=== PATIENT | male | born 1955 | race Caucasian/White ===

== ENCOUNTER 2018-08-07 14:39 | Inpatient (IN) ==
--- NOTE | 2018-08-07 14:42 | Emergency Department Note ---
Disposition Clinical Impression: Common bile duct (CBD) obstruction Abdominal pain Qualifiers: Abdominal location: generalized Qualified Code(s): R10.84 - Generalized abdominal pain Disposition: Admitted As Inpatient Condition: Fair Time of Disposition: 15:03 General Adult HPI - General Stated complaint: GI obstruction Time Seen by Provider: 08/07/18 14:42 Source: patient Mode of arrival: EMS Limitations: no limitations Nursing Notes Reviewed: Yes Vital Signs Reviewed: Yes - History of Present Illness HPI Narrative: Patient is a 63-year-old male presenting from the [facility] for transfer for right upper quadrant abdominal pain. Patient with known history of cirrhosis and alcoholism. Patient states that this is been ongoing for the past month without change. He has associated nausea without vomiting. He has noticed a change in stool which appears to be darker than usual and darker urination. While at the [facility], patient had a right upper quadrant ultrasound which was performed which shows cirrhosis with diffuse increased hepatic echogenicity with nodular hepatic contour, gallbladder sludge, with moderate air. Hepatic ascites with common bile duct dilatation to 9 mm. Patient also had blood work performed which shows AST at 232, LT at 91, top total bilirubin is 7.7, alkaline phosphatase at 204, sodium 1:30, potassium at 2.8, chloride 95, glucose 100, hemoglobin is 12.4. Platelets of 250. - Related Data Allergies Allergy/AdvReac Type Severity Reaction Status Date / Time No Known Allergies Allergy Verified 08/07/18 14:59 All systems ED: reviewed and negative except as stated. Review of Systems: As Per HPI Constitutional: Denies: fever, chills ENT ED: Denies: congestion Cardiovascular: Denies: chest pain, palpitations, dyspnea on exertion Respiratory: Denies: cough, dyspnea Gastrointestinal: Reports: diarrhea. Denies: abdominal pain, nausea, hematemesis, melena, hematochezia Genitourinary: Denies: dysuria Musculoskeletal: Denies: back pain Integumentary: Denies: rash Neurological: Denies: headache, weakness, confusion Endocrine: Denies: fatigue Hematological/Lymphatic: Denies: easy bleeding, easy bruising Physical Exam - General Limitations: no limitations General appearance: alert, in no apparent distress - Head Head exam: atraumatic, normocephalic, normal inspection - Eye Eye exam: Present: PERRL, EOMI, scleral icterus - ENT ENT exam: normal exam, normal oropharynx, mucous membranes moist - Neck Neck exam: Present: normal inspection, full ROM, trachea midline - Chest Chest inspection: Present: normal inspection, symmetric chest wall rise - Respiratory Respiratory exam: Present: normal lung sounds bilaterally - Cardiovascular Cardiovascular exam: Present: regular rate, normal rhythm, normal heart sounds - Abdominal Exam Abdominal exam: Present: soft, tenderness (Patient with tenderness in the right upper quadrant, is minimal to deep palpation). Absent: distention, guarding, rebound, rigidity - Extremities Exam Extremities exam: Present: normal inspection, full ROM. Absent: tenderness, pedal edema - Back Exam Back exam: Present: normal inspection, full ROM. Absent: tenderness - Neurological Exam Neurological exam: Present: alert, oriented X3 - Psychiatric Psychiatric exam: Present: normal affect, normal mood - Skin Skin exam: Present: warm, dry, intact, other (Patient was scleral icterus as well as jaundice to the chest) Medical Decision Making - [facility] Narrative Medical decision making narrative: Patient is a 63-year-old male whose [facility] with [facility] with known history of cirrhosis of the liver and alcoholism. [facility] which showed some right upper quadrant ultrasound with biliary sludge, common bile duct dilatation to 9 mm with elevated AST, a LT, T bili at 7.7. I did speak with GI nurse practitioner, who agrees to see the patient tomorrow for ERCP. Patient vital signs otherwise within normal limits and stable. Their recommendation is to make patient nothing by mouth after midnight. Patient agrees at this point in time to admission for further ERCP definitive management. Patient agrees with disposition. - Medical Records Medical records reviewed: Yes I reviewed the patient's medical records. - Lab Data Lab results reviewed: Yes I reviewed the patient's lab results. - Radiology Data Radiology results reviewed: Yes I reviewed the patient's radiology results.
--- NOTE | 2018-08-07 14:48 | Emergency Department Note ---
Disposition Clinical Impression: Common bile duct (CBD) obstruction Abdominal pain Qualifiers: Abdominal location: generalized Qualified Code(s): R10.84 - Generalized a bdominal pain Disposition: Admitted As Inpatient Condition: Fair Time of Disposition: 18:14 General Adult HPI - General Stated complaint: GI obstruction Time Seen by Provider: 08/07/18 14:42 - Related Data Home Medications Medication Instructions Recorded Confirmed Amlodipine Besylate/Benazepril 1 each PO DAILY 08/07/18 08/07/18 [Lotrel 10-20 mg Capsule] Fluticasone Propionate Nasal 50 mcg NS DAILY PRN 08/07/18 08/07/18 [Flonase] Folic Acid 1 mg PO DAILY 08/07/18 08/07/18 Thiamine (B-1) [Vitamin B-1] 100 mg PO DAILY 08/07/18 08/07/18 Allergies Allergy/AdvReac Type Severity Reaction Status Date / Time No Known Allergies Allergy Verified 08/07/18 14:59 Course Vital Signs Temperature 98.5 F 08/07/18 14:47 Pulse Rate 100 08/07/18 14:47 Respiratory Rate 16 08/07/18 14:47 Blood Pressure 113/72 08/07/18 14:47 O2 Sat by Pulse Oximetry 98 08/07/18 14:47 Temperature 98.4 F 08/07/18 17:29 Pulse Rate 107 08/07/18 17:29 Respiratory Rate 16 08/07/18 17:29 Blood Pressure 111/67 08/07/18 17:29 O2 Sat by Pulse Oximetry 97 08/07/18 17:29 Oxygen Delivery Oxygen Delivery Room Air Medical Decision Making - Lab Data Result diagrams: 08/07/18 16:25 08/07/18 16:25 Lab Results 08/07/18 08/07/18 08/07/18 Range/Units 16:25 16:25 16:25 WBC 11.5 H (4.3-11.1) K/mcL RBC 3.36 L (4.19-5.50) M/mcL Hgb 12.0 L (12.9-16.9) g/dL Hct 32.9 L (37.5-50.1) % MCV 97.9 (83.0-100.0) fL MCH 35.7 H (28.0-33.3) pg MCHC 36.5 H (31.6-35.5) g/dL RDW 16.4 H (11.5-14.5) % Plt Count 245 (140-400) K/mcL MPV 10.0 (9.4-12.4) fL Immature Gran % 0.6 (0-4) % Seg Neutrophils % 70.7 % Lymphocytes % 11.7 % Monocytes % 15.6 % Eosinophils % 0.6 % Basophils % 0.8 % Neutrophils # 8.1 (1.6-8.9) K/mcL Lymphocytes # 1.3 (0.6-4.6) K/mcL Monocytes # 1.8 H (0.0-1.3) K/mcL Eosinophils # 0.1 (0.0-0.6) K/mcL Basophils # 0.1 (0.0-0.2) K/mcL PT (9.4-12.1) Seconds INR Sodium 130 L (136-145) mEq/L Potassium 2.9 L (3.5-5.1) mEq/L Chloride 95 L (98-107) mEq/L Carbon Dioxide 27 (23-29) mEq/L BUN 16 (8-23) mg/dL Creatinine 0.60 L (0.70-1.30) mg/dL Est GFR ( Amer) > 60 (> 60) Est GFR (Non-Af Amer) > 60 (> 60) BUN/Creatinine Ratio 27 H (6-26) Glucose 95 (70-105) mg/dL Calculated Osmolality 271 L (280-300) Calcium 7.7 L (8.6-10.3) mg/dL Phosphorus 2.0 L (2.7-4.5) mg/dL Magnesium 1.5 L (1.6-2.6) mg/dL Total Bilirubin 8.4 H (0.3-1.0) mg/dL AST 182 H (13-39) Units/L ALT 74 H (7-52) Units/L Alkaline Phosphatase 152 H (34-104) Units/L Serum Total Protein 6.0 L (6.4-8.9) g/dL Albumin 2.7 L (3.5-5.7) g/dL Globulin 3.3 (2.4-3.5) g/dL Albumin/Globulin Ratio 0.8 L (1.1-2.2) Ethyl Alcohol < 10 (Less than 10) mg/dL 08/07/18 Range/Units 16:25 WBC (4.3-11.1) K/mcL RBC (4.19-5.50) M/mcL Hgb (12.9-16.9) g/dL Hct (37.5-50.1) % MCV (83.0-100.0) fL MCH (28.0-33.3) pg MCHC (31.6-35.5) g/dL RDW (11.5-14.5) % Plt Count (140-400) K/mcL MPV (9.4-12.4) fL Immature Gran % (0-4) % Seg Neutrophils % % Lymphocytes % % Monocytes % % Eosinophils % % Basophils % % Neutrophils # (1.6-8.9) K/mcL Lymphocytes # (0.6-4.6) K/mcL Monocytes # (0.0-1.3) K/mcL Eosinophils # (0.0-0.6) K/mcL Basophils # (0.0-0.2) K/mcL PT 24.8 H (9.4-12.1) Seconds INR 2.2 Sodium (136-145) mEq/L Potassium (3.5-5.1) mEq/L Chloride (98-107) mEq/L Carbon Dioxide (23-29) mEq/L BUN (8-23) mg/dL Creatinine (0.70-1.30) mg/dL Est GFR ( Amer) (> 60) Est GFR (Non-Af Amer) (> 60) BUN/Creatinine Ratio (6-26) Glucose (70-105) mg/dL Calculated Osmolality (280-300) Calcium (8.6-10.3) mg/dL Phosphorus (2.7-4.5) mg/dL Magnesium (1.6-2.6) mg/dL Total Bilirubin (0.3-1.0) mg/dL AST (13-39) Units/L ALT (7-52) Units/L Alkaline Phosphatase (34-104) Units/L Serum Total Protein (6.4-8.9) g/dL Albumin (3.5-5.7) g/dL Globulin (2.4-3.5) g/dL Albumin/Globulin Ratio (1.1-2.2) Ethyl Alcohol (Less than 10) mg/dL Attestation Statement - Attestation Attestation: I reviewed the residents documentation and agree with the residents assessment and plan of care. I have personally had face to face time with the patient. (Brief History, Brief Exam, and MDM) I personally supervised and was present for the ott/critical portions of the following procedures completed by the resident: (add procedures performed here). [id number] time provided Patient arrives from the [facility] with right upper quadrant abdominal pain. He states he initially presented due to difficulty ambulating. He appears jaundiced on exam. I did review the labs drawn at the [facility]. I reviewed the transcribed report of the CT abdomen and pelvis with concern for choledocholithiasis.
[2018-08-07] MEDS ORDERED: Ondansetron 4 MG/2 ML VIAL IVP PRN (15:55)
[2018-08-07] MEDS ORDERED: Naloxone 0.4 MG/ML INJ IVP PRN (15:55)
[2018-08-07] MEDS ORDERED: OXYCODONE Oral CONC 10 MG/0.5 ML ORAL.SYG SL PRN (15:55)
[2018-08-07] MEDS ORDERED: *HR* LORazepam 2 MG/ML VIAL IVP PRN ×3 (16:03)
[2018-08-07] MEDS ORDERED: Piperacillin/Tazobactam 3.375 GM in 0.9 % Sodium Chloride Mini Bag 100 ML IVPB SCH ×2 (16:14→22:00)
--- NOTE | 2018-08-07 16:27 | Internal Med History&Physical ---
Date of Encounter: 08/07/18 Time of Encounter: 15:50 Internal Medicine - H&P: HPI Chief complaint: transfer from [facility] for acute cholecystitis Admitted From: Home Plans for Post Hospital Care: Home History of present illness: Mr. Whitley is a 63 year old male with PMH of alcohol abuse, cirrhosis of the liver, hypertension, tobacco abuse who is transferred from [facility] for evaluation of acute cholecystitis. Patient is seen and examined with family present at bedside. Patient states he checked himself into [facility] last week for alcohol detox, states he has been having dulling right upper quadrant abdominal pain for the last month, but he has continued to drink. He reports of being at the [facility] for the last few days, and his last alcohol drink was yesterday. Prior to his admission to the [facility] he has been drinking 6-7 drinks of 6oz vodka daily for the last twenty years. He also reports of smoking a ppd. [facility] workup reported CT abd/pelvis: 1. Diffuse Increased hepatic echogenicity with a mildly nodular hepatic contour. 2. Large amount of dependent medium level echogenicity in the gallbladder likely representing tumefactive sludge. Gallbladder neoplasm cannot be excluded based on this appearance. 3. There is dilation of the common bile duct up to 9mm. This could be due to a distal stone, stricture or tumor. ERCP or MRCP is recommended 4. Moderate perihepatic ascites Patient is currently resting in bed, reports of mild RUQ abd discomfort but denies any nausea, vomiting, fever, or chills. Ten point ROS is negative except as listed above. Past Med Surg Social Fam HX - Past Medical History Medical history: hypertension, liver disease Psychiatric history: no psych history - Social History Smoking Status: Current every day smoker Smokeless Tobacco Status: No Alcohol use: occasionally Drug use: none Internal Medicine - H&P: Meds Amlodipine Besylate/Benazepril [Lotrel 10-20 mg Capsule] 1 each PO DAILY 08/07/18 [History] Fluticasone Propionate Nasal [Flonase] 50 mcg NS DAILY PRN 08/07/18 [History] Folic Acid 1 mg PO DAILY 08/07/18 [History] Thiamine (B-1) [Vitamin B-1] 100 mg PO DAILY 08/07/18 [History] Allergy/AdvReac Type Severity Reaction Status Date / Time No Known Allergies Allergy Verified 08/07/18 14:59 All Systems PM: A 10-system review of systems was performed and is negative for pertinent findings except as documented above in the HPI. Review of systems: Ten point ROS is negative except as listed in HPI - Constitutional Vitals: Temp Pulse Resp BP Pulse Ox 98.5 F 100 16 113/72 98 08/07/18 14:47 08/07/18 14:47 08/07/18 14:47 08/07/18 14:47 08/07/18 14:47 Exam: General: No acute distress, AAO x 3, jaundiced HEENT: EOMI, PERRLA, NC/AT, + scleral icterus Respiratory: Clear to auscultate bilaterally, no wheezing, no rales Cardiovascular: Regular, Rate, Rhythm, No murmurs GI: Soft, Non tender, distended abd, normal bowel sounds, no guarding, no rebound tenderness Ext: No edema, no tenderness, positive pulses Neuro: AAO x 3, no focal deficits, CN II-XII grossly intact Rest of the clinical exam is noncontributory - Summary of Assessment and Plan Summary of Assessment and Plan: Mr. Whitley is a 63 year old male with PMH of alcohol abuse, cirrhosis of the liver, hypertension, tobacco abuse who is transferred from [facility] for evaluation of acute cholecystitis. Assessment/Plan: 1. Acute choledocholithiasis/acute cholecystitis STAT MRCP ordered GI evaluation requested I spoke with Dr. Jo, will keep pt NPO except ice chips at this time tentatively scheduled for ERCP in am IV abx, IV fluids anti-emetic support as needed pain control as needed f/u INR 2. Alcohol abuse will closely monitor for alcohol withdrawals CIWA monitoring Lorazepam as needed per CIWA scores Folate, Thiamine supplementation concern for DTs, will closely monitor social welfare clerk evaluation 3. Hx of HTN BP within acceptable range at this time will restart home medications after verification closely monitor BP 4. Tobacco abuse smoking cessation counseling provided patient does not want to quit refused nicotine supplementation therapy at this time 5. Elevated transaminases with hx of cirrhosis of the liver GI evaluation requested will obtain hepatitis profile continue to closely monitor f/u coag studies DVT ppx: will initiate heparin SQ if coag studies are WNL code status: Full code LOS > 2 midnights Care plan discussed with patient/family/Consulting provider - Time Spent With Patient Total time spent is greater than 50% in coordination of care (as documented) at patient's floor/unit and/or counseling patient:
[2018-08-07] MEDS ORDERED: Fluticasone Propionate Nasal 50 MCG/SPRAY BOTTLE NS PRN (16:29)
[2018-08-07 16:36] LABS: Basophils # 0.1 K/mcL (0.0-0.2); Basophils % 0.8 %; Eosinophils # 0.1 K/mcL (0.0-0.6); Eosinophils % 0.6 %; Hematocrit 32.9 % (37.5-50.1); Immature Granulocytes % 0.6 % (0-4); Lymphocytes # 1.3 K/mcL (0.6-4.6); Lymphocytes % 11.7 %; Mean Corpuscular HGB Conc 36.5 g/dL (31.6-35.5); Mean Corpuscular Hemoglobin 35.7 pg (28.0-33.3); Mean Corpuscular Volume 97.9 fL (83.0-100.0); Monocytes # 1.8 K/mcL (0.0-1.3); Monocytes % 15.6 %; Neutrophils # 8.1 K/mcL (1.6-8.9); Platelet Count 245 K/mcL (140-400); Red Blood Count 3.36 M/mcL (4.19-5.50); Red Cell Distribution Width 16.4 % (11.5-14.5); Segmented Neutrophils % 70.7 %; White Blood Count 11.5 K/mcL (4.3-11.1)
[2018-08-07 16:44] LABS: INR 2.2; Prothrombin Time 24.8 Seconds (9.4-12.1)
[2018-08-07 17:07] LABS: Alanine Aminotransferase 74 Units/L (7-52); Albumin 2.7 g/dL (3.5-5.7); Albumin/Globulin Ratio 0.8 (1.1-2.2); Alkaline Phosphatase 152 Units/L (34-104); Aspartate Amino Transferase 182 Units/L (13-39); BUN/Creatinine Ratio 27 (6-26); Bilirubin,Total 8.4 mg/dL (0.3-1.0); Blood Urea Nitrogen 16 mg/dL (8-23); Calcium 7.7 mg/dL (8.6-10.3); Carbon Dioxide 27 mEq/L (23-29); Chloride 95 mEq/L (98-107); Globulin 3.3 g/dL (2.4-3.5); Glucose 95 mg/dL (70-105); Magnesium 1.5 mg/dL (1.6-2.6); Osmolality,Calculated 271 (280-300); Potassium 2.9 mEq/L (3.5-5.1); Sodium 130 mEq/L (136-145); eGFR For African Americans > 60 (> 60); eGFR For Non-African Americans > 60 (> 60)
[2018-08-07] MEDS: 0.9 % Sodium Chloride 1,000 ML IVC SCH (18:35)
[2018-08-07] MEDS: Potassium Chloride 20 MEQ, Lidocaine 1% 2 ML in D5% in Water 250 ML IVPB SCH ×2 (18:36→22:46)
[2018-08-08] MEDS: 0.9 % Sodium Chloride 1,000 ML IVC SCH ×4 (02:48→19:48)
[2018-08-08] MEDS: Thiamine (B-1) 100 MG, Folic Acid 1 MG, MVI, adult with vitamin K 10 ML in 0.9 % Sodi... IVPB SCH ×2 (02:49→19:34)
[2018-08-08 02:50] LABS: Basophils # 0.1 K/mcL (0.0-0.2); Basophils % 0.9 %; Eosinophils # 0.1 K/mcL (0.0-0.6); Eosinophils % 0.5 %; Hemoglobin 10.7 g/dL (12.9-16.9); Immature Granulocytes % 0.5 % (0-4); Lymphocytes # 1.3 K/mcL (0.6-4.6); Mean Corpuscular HGB Conc 35.7 g/dL (31.6-35.5); Mean Corpuscular Hemoglobin 35.7 pg (28.0-33.3); Mean Platelet Volume 10.3 fL (9.4-12.4); Monocytes # 1.8 K/mcL (0.0-1.3); Monocytes % 17.5 %; Neutrophils # 7.2 K/mcL (1.6-8.9); Platelet Count 213 K/mcL (140-400); Red Cell Distribution Width 16.5 % (11.5-14.5); Segmented Neutrophils % 68.6 %; White Blood Count 10.5 K/mcL (4.3-11.1)
[2018-08-08 03:23] LABS: Alanine Aminotransferase 66 Units/L (7-52); Albumin 2.5 g/dL (3.5-5.7); Albumin/Globulin Ratio 0.8 (1.1-2.2); Alkaline Phosphatase 154 Units/L (34-104); Aspartate Amino Transferase 156 Units/L (13-39); BUN/Creatinine Ratio 25 (6-26); Bilirubin,Total 7.4 mg/dL (0.3-1.0); Blood Urea Nitrogen 14 mg/dL (8-23); Calcium 7.2 mg/dL (8.6-10.3); Carbon Dioxide 24 mEq/L (23-29); Chloride 97 mEq/L (98-107); Chol/HDL Ratio 28.3 (0-4.9); Cholesterol 85 mg/dL (< 200); Glucose 98 mg/dL (70-105); HDL Cholesterol 3 mg/dL (40-59); LDL Cholesterol,Calculated 61 mg/dL (0-99); Magnesium 1.7 mg/dL (1.6-2.6); Osmolality,Calculated 270 (280-300); Phosphorous 1.5 mg/dL (2.7-4.5); Potassium 3.1 mEq/L (3.5-5.1); Sodium 130 mEq/L (136-145); Total Protein 5.5 g/dL (6.4-8.9); Triglycerides 104 mg/dL (< 150); eGFR For African Americans > 60 (> 60); eGFR For Non-African Americans > 60 (> 60)
[2018-08-08] MEDS: Lisinopril 20 MG TABLET PO SCH (08:01)
[2018-08-08] MEDS: Piperacillin/Tazobactam 3.375 GM in 0.9 % Sodium Chloride Mini Bag 100 ML IVPB SCH ×2 (08:01→19:29)
[2018-08-08] MEDS: amLODIPine 5 MG TABLET PO SCH (08:01)
[2018-08-08] MEDS ORDERED: Potassium Phosphate 44 MEQ in 0.9 % Sodium Chloride 250 ML IVPB ONE (08:17)
[2018-08-08] MEDS ORDERED: NON-FORMULARY MEDICATION 1 EACH EACH (Amlodipine Besylate/Benazepril [Lotrel 10-20 Mg Caps PO SCH (09:00)
--- NOTE | 2018-08-08 12:26 | Gastroenterology Consult Note ---
<ForbesJovany Mcgrath - Last Filed: 08/08/18 12:24> Date of Encounter: 08/08/18 Time of Encounter: 11:15 - Assessment and plan (1) Cirrhosis Current Visit: Yes Status: Acute Assessment and plan: MELD-Na 27, Child-Saucedo class C, DF 66.8. Will discuss need for steroid with Dr. Jo. Recommend 2-4 bowel movements daily, use Lactulose PRN. Check liver workup (AFP, alpha-1 antitrypsin, FARHANA, ANCA, ceruloplasmin, F actin, ferritin, hepatitis profile, AMA, PT/INR). Lifestyle Changes: 1. Total abstinence from alcohol including social drinking. 2. No smoking. 3. Gradual loss of weight. 4. Drink at least 3 cups of coffee due to its antioxidant effects in the liver, it reduces risk of HCC and advance fibrosis. 5. If needed, use less than 2 g/day of Tylenol (in divided doses). 6. Vaccination for Hep A, B, Pneumococcus if not already received and yearly influenza vaccination by PCP. 7. Avoid NSAIDS as can cause kidney damage. 8. Avoid benzodiazepines and other sedatives such as anti-histamines, narcotics etc. as can cause encephalopathy or confusion. 9. Take a late carbohydrate meal supplement as it reduces glucose production from protein breakdown and thus improves nutrition. 10. In cirrhosis, statins are safe to use and also improve portal hypertension and decrease risk of HCC. 11. Screening: Hepatocellular cancer screening: US of liver and AFP every 6 months Qualifiers: Hepatic cirrhosis type: alcoholic cirrhosis Ascites presence: unspecified Qualified Code(s): K70.30 - Alcoholic cirrhosis of liver without ascites (2) Common bile duct (CBD) obstruction Current Visit: Yes Status: Acute Assessment and plan: MRCP shows: 1. The gallbladder appears hydropic without definite gallbladder wall thickening. Probable gallbladder sludge or sand demonstrated. Evaluation for tumor is limited without administration of IV contrast, but no discrete gallbladder mass lesion is evident. 2. Hepatic steatosis and morphologic features of hepatic cirrhosis. 3. Suboptimally evaluated because of the presence of abdominal ascites, the CBD and PD appear grossly unremarkable. 4. There appears to be omental caking in the left upper quadrant. Correlation with IV contrast-enhanced CT abdomen and pelvis recommended as this can be seen with metastatic disease, but can also be reactive in hepatic cirrhosis. No indication for ERCP at this time. Consider consulting Surgery for possible cholecystectomy. Continue to monitor hepatic panel daily. (3) Abdominal pain Current Visit: Yes Status: Acute Assessment and plan: RUQ pain. Recommend consulting Surgery for possible cholecystectomy. Qualifiers: Abdominal location: right upper quadrant Qualified Code(s): R10.11 - Right upper quadrant pain - Time Spent With Patient Total time spent is greater than 50% in coordination of care (as documented) at patient's floor/unit and/or counseling patient: GI History of Present Illness - Data of Consult Patient: new to practice Consult date: 08/08/18 Requesting Physician: Eva Webber MD - Consult Narrative Reason for consult: CBD obstruction History of present illness: Mr. Whitley is a 63 year old male with PMHx of HTN, alcohol abuse (6 drinks/day for 30 years), cirrhosis, HTN, who was transferred from [place] for evaluation of acute cholecystitis. Patient states he checked himself into [facility] last week for alcohol detox, states he has been having dulling right upper quadrant abdominal pain for the last month, but he has continued to drink. CT A/P at [place] showed: 1. Diffuse Increased hepatic echogenicity with a mildly nodular hepatic contour. 2. Large amount of dependent medium level echogenicity in the gallbladder likely representing tumefactive sludge. Gallbladder neoplasm cannot be excluded based on this appearance. 3. There is dilation of the common bile duct up to 9mm. This could be due to a distal stone, stricture or tumor. ERCP or MRCP is recommended 4. Moderate perihepatic ascites. On admission here TB 8.4, AST 182, ALT 74, alk phos 152. We were consulted to evaluate for possible CBD obstruction. Procedures: None NSAIDs: None Anticoagulation: None Past Med Surg Social Fam HX - Past Medical History Medical history: hypertension, liver disease Psychiatric history: no psych history - Social History Smoking Status: Current every day smoker Smokeless Tobacco Status: No Alcohol use: occasionally Drug use: none - Gastrointestinal Gastrointestinal: Present: as per HPI - Constitutional Constitutional: as per HPI - EENT Eyes: as per HPI Ears: Present: as per HPI Nose, mouth and throat: Present: as per HPI - Cardiovascular Cardiovascular ROS: Present: as per HPI - Respiratory Respiratory IM: Present: as per HPI - Genitourinary Genitourinary: Absent: change in color, Urinary frequency - Neurological ROS Neurological GI: Present: as per HPI - Hematologic/Lymphatic Hematologic/Lymphatic pediatric: Present: as per HPI - Musculoskeletal Musculoskeletal ROS GI: Present: as per HPI - Integumentary Integumentary GI: Present: as per HPI - Psychiatric ROS Psychiatric GI: Present: as per HPI - Endocrine Endocrine IM: Present: as per HPI - Constitutional Vitals: Temp Pulse Resp BP Pulse Ox 98.8 F 94 16 116/75 94 08/08/18 11:32 08/08/18 11:32 08/08/18 11:32 08/08/18 11:32 08/08/18 11:32 General appearance: Present: cooperative, A&O X 3, no acute distress, answers questions appropriately - Head Head exam: Present: atraumatic, normocephalic - Eye Eye exam: Present: scleral icterus - ENT ENT exam: Present: mucous membranes moist - Neck Neck exam general surgery: Present: normal inspection, trachea midline - Respiratory Respiratory exam: Present: CTAB. Absent: rales, rhonchi - Cardiovascular Cardiovascular exam: Present: RRR, +S1, +S2 - GI/Abdominal GI/Abdominal exam: Present: soft, no peritoneal signs. Absent: distended, firm, guarding, tenderness - Rectal Rectal exam: Present: deferred - Extremities Exam Extremities exam: Present: warm - Neurological Exam Neurological exam: Present: no focal deficits - Psychiatric Psychiatric exam: Present: normal affect, normal mood - Skin Skin exam: Present: dry, intact, normal color, warm Results - Labs CBC & Chem 7: 08/08/18 02:31 08/08/18 02:31 Labs: Last Result 08/08/18 02:31 Calcium 7.2 L Triglycerides 104 Entire Visit 08/08/18 08/08/18 02:31 02:31 Hgb 10.7 L Hct 30.0 L Total Bilirubin 7.4 H AST 156 H ALT 66 H - ABG ABG results: PT/INR, D-dimer PT 24.8 Seconds (9.4-12.1) H 08/07/18 16:25 - Impressions Impressions Abdomen MRI 08/07/18 16:00 IMPRESSION: 1. The gallbladder appears hydropic without definite gallbladder wall thickening. Probable gallbladder sludge or sand demonstrated. Evaluation for tumor is limited without administration of IV contrast, but no discrete gallbladder mass lesion is evident. 2. Hepatic steatosis and morphologic features of hepatic cirrhosis. 3. Suboptimally evaluated because of the presence of abdominal ascites, the common bile duct and pancreatic duct appear grossly unremarkable. 4. There appears to be omental caking in the left upper quadrant. Correlation with IV contrast-enhanced CT abdomen and pelvis recommended as this can be seen with metastatic disease, but can also be reactive in hepatic cirrhosis. D/ / Hal Rice / Hal Rice Interpreting Provider: Hal Rice Consult Discharge Plan - Plan Instructions: Laparoscopic Cholecystectomy (DC) Additional Instructions: General Surgical Discharge Instructions 1. No pushing, pulling, or lifting greater than 15 lbs for 2-4 weeks (depending upon procedure). 2. You may shower beginning today, but no tub baths, soaking, or swimming for 2 weeks. 3. You may resume driving when you are off narcotics and are safe to react in a car. 4. Take ibuprofen every 8 hours for discomfort. If this does not relieve discomfort, you may take the as needed Percocet. Take narcotics as directed. Do not take more narcotics then directed and do not share your narcotics with any other person. Do not drink alcohol while on narcotics. 5. Take stool softeners (Colace) or a water based laxative (Miralax) while taking narcotics. You may hold for loose stools. 6. Report any fevers greater than 100.5F, increase abdominal discomfort, drainage that looks like pus, increased redness or pain at the surgical site, or any vomiting. 7. Report any pain in the calves, shortness of breath, or rapid heartbeat. 8. Follow-up in the office as directed. 9. If you were prescribed antibiotics, do not stop them without talking to your provider. [facility]errals: [facility]Primary Care Provider[facility] - Prescriptions: Docusate [Colace] 100 mg PO DAILY #30 capsule <Desmond Jo - Last Filed: 08/16/18 07:29> Date of Encounter: 08/08/18 - Time Spent With Patient Total time spent is greater than 50% in coordination of care (as documented) at patient's floor/unit and/or counseling patient: GI History of Present Illness - Data of Consult Requesting Physician: Denise Masters MD - Consult Narrative History of present illness: Mr. Whitley is a 63 year old male - Constitutional Vitals: Temp Pulse Resp BP Pulse Ox 97.7 F 105 18 107/70 97 08/16/18 06:55 08/16/18 06:55 08/16/18 06:55 08/16/18 06:55 08/16/18 05:32 Results - Labs CBC & Chem 7: 08/16/18 05:49 08/16/18 05:49 Labs: Last Result 08/16/18 08/16/18 05:49 05:49 ESR 14 H Calcium 7.9 L Entire Visit 08/16/18 08/16/18 05:49 05:49 Hgb 11.5 L Hct 32.1 L Total Bilirubin 5.5 H AST 108 H ALT 63 H Amylase 38 Lipase 30 - ABG ABG results: PT/INR, D-dimer PT 28.6 Seconds (9.4-12.1) H 08/15/18 02:15 - Impressions Impressions Abdomen Ultrasound 08/15/18 07:30 IMPRESSION: 1. Hepatic steatosis with small volume of ascites. 2. Status post cholecystectomy. D/ / Klaus Ho MD / Klaus Ho MD Interpreting Provider: Klaus Ho MD Chest X-Ray 08/15/18 10:24 IMPRESSION: Low lung volumes with patchy bibasilar opacities which could indicate volume loss or pneumonia. Upright PA and lateral chest radiographs would be helpful for further evaluation. D/ / Sj Shahid MD / Sj Shahid MD Interpreting Provider: Sj Shahid MD - Attending Attestation 63 year old male with acute hepatitis with cholestatic picture. Recommend MRCP. Decompensated cirrhosis Child Class C. No reason for ERCP at present. Consult surgery. Overall poor prognosis given his MELD and Child Saucedo. No evidence for bleeding. Watch for encephalopathy. I have personally performed a face to face evaluation on this patient. I have reviewed and agree with the care plan. History and Exam by me shows:
--- NOTE | 2018-08-08 13:52 | Internal Med Progress Note ---
Hospitalist Progress Note - Encounter Date of Encounter: 08/08/18 Time of Encounter: 13:47 - Subjective Interval History: Patient seen and examined earlier today with family present at bedside. Patient states abd pain improved from previous day. No nausea, vomiting, fever, or chills reported. As per GI, surgical consultation has been requested. Pt to remain NPO until surgical evaluation Ten point ROS is negative except as listed above No overnight events reported - Exam Vitals: Temp Pulse Resp BP Pulse Ox 98.8 F 94 16 116/75 94 08/08/18 11:32 08/08/18 11:32 08/08/18 11:32 08/08/18 11:32 08/08/18 11:32 Exam: General: No acute distress, AAO x 3, jaundiced HEENT: EOMI, PERRLA, NC/AT, + scleral icterus Respiratory: Clear to auscultate bilaterally, no wheezing, no rales Cardiovascular: Regular, Rate, Rhythm, No murmurs GI: Soft, Non tender, distended abd, normal bowel sounds, no guarding, no rebound tenderness Ext: No edema, no tenderness, positive pulses Neuro: AAO x 3, no focal deficits Rest of the clinical exam is noncontributory - Summary of Assessment and Plan Summary of Assessment and Plan: Mr. Whitley is a 63 year old male with PMH of alcohol abuse, cirrhosis of the liver, hypertension, tobacco abuse who is transferred from [facility] for evaluation of acute cholecystitis. Assessment/Plan: 1. Acute choledocholithiasis/acute cholecystitis MRCP reviewed GI evaluation appreciated no further intervention recommended by GI Surgery evaluation requested continue IV abx, IV fluids anti-emetic support as needed pain control as needed NPO until surgical evaluation 2. Alcohol abuse will closely monitor for alcohol withdrawals CIWA monitoring Lorazepam as needed per CIWA scores Folate, Thiamine supplementation concern for DTs, will closely monitor director social welfare evaluation 3. Hx of HTN BP within acceptable range at this time will restart home medications after verification closely monitor BP 4. Tobacco abuse smoking cessation counseling provided patient does not want to quit refused nicotine supplementation therapy at this time 5. Elevated transaminases with hx of cirrhosis of the liver GI evaluation appreciated awaiting hepatitis profile continue to closely monitor f/u coag studies INR > 2 yesterday, hold off any anticoagulation at this time 6. Electrolyte abnormality Hypokalemia, Hypophosphatemia K and Phos supplemented continue to monitor electrolytes and replace as needed DVT ppx: INR > 2 yesterday, hold off any anticoagulation at this time code status: Full code Care plan discussed with patient/family/Consulting provider/RN - Time Spent with Patient Total time spent is greater than 50% in coordination of care (as documented) at patient's floor/unit and/or counseling patient: Internal Medicine: Result - Labs CBC & Chem 7: 08/08/18 02:31 08/08/18 02:31 Labs: Short CBC 08/07/18 08/08/18 Range/Units 16:25 02:31 WBC 11.5 H 10.5 (4.3-11.1) K/mcL Hgb 12.0 L 10.7 L (12.9-16.9) g/dL Hct 32.9 L 30.0 L (37.5-50.1) % Plt Count 245 213 (140-400) K/mcL Neutrophils # 8.1 7.2 (1.6-8.9) K/mcL BMP 08/07/18 08/08/18 16:25 02:31 Sodium 130 L 130 L Potassium 2.9 L 3.1 L Chloride 95 L 97 L Carbon Dioxide 27 24 BUN 16 14 Creatinine 0.60 L 0.57 L Glucose 95 98 Calcium 7.7 L 7.2 L Liver Function 08/07/18 08/08/18 Range/Units 16:25 02:31 Total Bilirubin 8.4 H 7.4 H (0.3-1.0) mg/dL AST 182 H 156 H (13-39) Units/L ALT 74 H 66 H (7-52) Units/L Alkaline Phosphatase 152 H 154 H (34-104) Units/L Albumin 2.7 L 2.5 L (3.5-5.7) g/dL - ABG Interpretation ABG results: PT/INR, D-dimer PT 24.8 Seconds (9.4-12.1) H 08/07/18 16:25 - Impressions Impressions Abdomen MRI 08/07/18 16:00 IMPRESSION: 1. The gallbladder appears hydropic without definite gallbladder wall thickening. Probable gallbladder sludge or sand demonstrated. Evaluation for tumor is limited without administration of IV contrast, but no discrete gallbladder mass lesion is evident. 2. Hepatic steatosis and morphologic features of hepatic cirrhosis. 3. Suboptimally evaluated because of the presence of abdominal ascites, the common bile duct and pancreatic duct appear grossly unremarkable. 4. There appears to be omental caking in the left upper quadrant. Correlation with IV contrast-enhanced CT abdomen and pelvis recommended as this can be seen with metastatic disease, but can also be reactive in hepatic cirrhosis. D/ / Hal Rice / Hal Rice Interpreting Provider: Hal Rice Consult Discharge Plan - Plan [facility]: [facility] [Primary Care Provider[facility] -
[2018-08-08] MEDS ORDERED: Ondansetron 4 MG/2 ML VIAL ONE (14:09)
[2018-08-08] MEDS ORDERED: *HR* Propofol 200 MG/20 ML VIAL IVP ONE (14:09)
[2018-08-08] MEDS ORDERED: *HR* FentaNYL (PF) 100 MCG/2 ML VIAL ONE ×2 (14:09→18:10)
[2018-08-08] MEDS ORDERED: Dexamethasone 4 MG/ML VIAL ONE ×2 (14:09→16:54)
[2018-08-08] MEDS ORDERED: Neostigmine Methylsulfate 3 MG/3 ML SYRINGE ONE (14:09)
[2018-08-08] MEDS ORDERED: Lidocaine -MPF 2% 2 ML VIAL ONE (14:09)
[2018-08-08] MEDS ORDERED: *HR* Midazolam HCl 2 MG/2 ML VIAL ONE (14:09)
[2018-08-08] MEDS ORDERED: Lidocaine -MPF 4% 5 ML AMPUL ONE (14:09)
[2018-08-08 14:23] LABS: Hepatitis B Surface Antigen Nonreactive (Nonreactive)
--- NOTE | 2018-08-08 14:30 | Anesthesia Evaluation PreOp ---
Date of Encounter: 08/08/18 Time of Encounter: 16:00 - Past History Planned Operation: Lap Yessenia Cardiac History: HTN Pulmonary History: Smoker (1ppd x 40yrs) NEWSP[employer]ER PH[employer] EDITOR History: Denies Any Significant HX Other Medical History: Hepatic (Cirrhosis/EtOH abuse w/ ascites) Anesthesia History: No Prior Anesthetic Complications, Past Anesthesia Alcohol Use: occasionally, heavy (Daily drinker/Vodka. Recently checked into [facility] for EtOH Detox but transferred here for surgical Mgmt. Last drink Tuesday08/06/2018.) Drug use: none Medications and Allergies Amlodipine Besylate/Benazepril [Lotrel 10-20 mg Capsule] 1 each PO DAILY 08/07/18 [History] Fluticasone Propionate Nasal [Flonase] 50 mcg NS DAILY PRN 08/07/18 [History] Folic Acid 1 mg PO DAILY 08/07/18 [History] Thiamine (B-1) [Vitamin B-1] 100 mg PO DAILY 08/07/18 [History] Allergy/AdvReac Type Severity Reaction Status Date / Time No Known Allergies Allergy Verified 08/07/18 14:59 - Meds/Allergy Pre-op Review Medications Reviewed: Yes Allergies Reviewed: Yes Beta Blockers on Current Med List: No Anesthesia Results - Labs 08/08/18 02:31 08/08/18 02:31 Impressions Laboratory Tests 08/07/18 08/08/18 16:25 02:31 PT 24.8 H INR 2.2 Calcium 7.2 L Phosphorus 1.5 L Magnesium 1.7 Abdomen MRI 08/07/18 16:00 IMPRESSION: 1. The gallbladder appears hydropic without definite gallbladder wall thickening. Probable gallbladder sludge or sand demonstrated. Evaluation for tumor is limited without administration of IV contrast, but no discrete gallbladder mass lesion is evident. 2. Hepatic steatosis and morphologic features of hepatic cirrhosis. 3. Suboptimally evaluated because of the presence of abdominal ascites, the common bile duct and pancreatic duct appear grossly unremarkable. 4. There appears to be omental caking in the left upper quadrant. Correlation with IV contrast-enhanced CT abdomen and pelvis recommended as this can be seen with metastatic disease, but can also be reactive in hepatic cirrhosis. D/ / Hal Rice / Hal Rice Interpreting Provider: Hal Rice - Imaging EKG: image reviewed (EKG dated 08/08/2018] - 87bpm NSR) Additional studies: MR/MR abdomen wo con IMPRESSION: 1. The gallbladder appears hydropic without definite gallbladder wall thickening. Probable gallbladder sludge or sand demonstrated. Evaluation for tumor is limited without administration of IV contrast, but no discrete gallbladder mass lesion is evident. 2. Hepatic steatosis and morphologic features of hepatic cirrhosis. 3. Suboptimally evaluated because of the presence of abdominal ascites, the common bile duct and pancreatic duct appear grossly unremarkable. 4. There appears to be omental caking in the left upper quadrant. Correlation with IV contrast-enhanced CT abdomen and pelvis recommended as this can be seen with metastatic disease, but can also be reactive in hepatic cirrhosis. Anesthesia Exam Vital Signs Temp Pulse Resp BP Pulse Ox 08/08/18 11:32 98.8 F 94 16 116/75 94 08/08/18 08:00 93 08/08/18 07:48 98.4 F 83 16 100/67 93 08/08/18 03:25 98.8 F 88 16 101/68 97 08/07/18 23:19 98.8 F 89 17 100/65 96 08/07/18 19:23 98.4 F 103 16 98/62 96 08/07/18 17:29 98.4 F 107 16 111/67 97 08/07/18 16:23 97 16 119/64 97 08/07/18 16:03 16 119/64 08/07/18 14:58 98 16 109/70 98 08/07/18 14:47 98.5 F 100 16 113/72 98 Height: 5'8" Weight: 160# BMI = 24.5 - HEENT Pupil (Motor): Pupils equal (+ Scleral icterus), EOMI Mallampati: II Teeth: Edentulous Denture Type: Upper: Complete, Lower: Complete Oral Opening: Greater than 3 - NEWSP[employer]ER [employer]OTO EDITOR LOC: Oriented [employer]SP[employer]ER [employer] EDITOR Motor: Normal RUE, Normal LUE, Normal RLE, Normal LLE, Normal Face [employer]ER [employer]OR Sensory: Normal: RUE, LUE, RLE, LLE, Face - Cardiac Rhythm: Regular Murmur: None - Pulmonary Breath Sounds: bilateral Clear Respiratory Effort: Symmetrical Anesthesia Assess/Plan ASA Score: 4, E Level of consciousness: Cooperative, Oriented, Tranquil Anesthetic Plan: General Monitoring Plan: Standard Monitors Recovery Plan: PACU Anes Supervising Prov Stmt: Pt seen/evaluated, R&B Discussed questions answered and consent obtained. Juan Jose Zuñiga MD
[2018-08-08] MEDS ORDERED: Bupivacaine/EPI 1:200k 0.5%PF 30 ML VIAL ONE (14:34)
[2018-08-08] MEDS ORDERED: Isovue-300 50 ML VIAL ONE (14:35)
[2018-08-08 14:52] LABS: Hepatitis C Virus Antibody Nonreactive (Nonreactive)
[2018-08-08 14:53] LABS: Hepatitis B Core IgM Nonreactive (Nonreactive)
--- NOTE | 2018-08-08 14:53 | AcuteCare Surgery Consult Note ---
Date of Encounter: 08/08/18 Time of Encounter: 14:50 Assessment and Plan (1) Acute cholecystitis due to biliary calculus Current Visit: Yes Status: Acute Biliary sludge. Pt diagnosis of symptomatic cholelithiasis due to sludge is discussed. Laparoscopic Cholecystectomy with IOC is recommended. Procedure for the surgery, risks and benefits are discussed in detail. Possible known complications for Laparoscopic Cholecystectomy are bleeding, infection, bile duct injury, bile leak, small intestine or stomach injury, stroke, DVT/PE, UT or . Pt understands these risks, which in this case are bleeding, infection, bacterial peritonitis, bile leak, ascites leak. Pt wishes to proceed with surgery as soon as possible. Informed consent is obtained. Pt condition is stable. Surgery is scheduled. (2) Cirrhosis Current Visit: Yes Status: Acute GI consult reviewed and they recommend surgical intervention for problematic GB Qualifiers: Hepatic cirrhosis type: alcoholic cirrhosis Ascites presence: unspecified Qualified Code(s): K70.30 - Alcoholic cirrhosis of liver without ascites History of Present Illness Consult date: 08/08/18 Reason for consult: abdominal pain Requesting physician: Eva Webber History of present illness: This 63 y/o pt presents to [facility] ED from [place] [facility] complaining of jaundice and RUQ abdominal pain. Pt reports pain is moderate to severe. Pt reports the pain is progressively worsening. Pt reports pain radiates to back and up to rig ht shoulder. Pt reports associated nausea and vomiting. Pt denies CP or SOB. Denies fever. Past Med Surg Social Fam HX - Past Medical History Medical history: hypertension, liver disease Psychiatric history: no psych history - Social History Smoking Status: Current every day smoker Smokeless Tobacco Status: No Alcohol use: occasionally, heavy (checked into [facility] for EtOH Detox but last drink yesterday) Drug use: none Medications and Allergies Amlodipine Besylate/Benazepril [Lotrel 10-20 mg Capsule] 1 each PO DAILY 08/07/18 [History] Fluticasone Propionate Nasal [Flonase] 50 mcg NS DAILY PRN 08/07/18 [History] Folic Acid 1 mg PO DAILY 08/07/18 [History] Thiamine (B-1) [Vitamin B-1] 100 mg PO DAILY 08/07/18 [History] Allergy/AdvReac Type Severity Reaction Status Date / Time No Known Allergies Allergy Verified 08/07/18 14:59 Review of Systems All systems PM: The remainder of the systems were reviewed and are negative - Constitutional anorexia, fatigue, weakness, no chills, no excessive sweating, no fever(s), no night sweats - EENT Nose, mouth and throat: dry mouth, no dizziness, no dysphagia, no nasal congestion, no nasal discharge, no sinus pain, no sinus pressure, no sore throat - Cardiovascular no chest pain, no dyspnea, no edema, no leg edema - Respiratory no cough, no dyspnea, no wheezing - Gastrointestinal abdominal pain, bloating, early satiety, nausea, vomiting, no constipation, no diarrhea - Genitourinary no dysuria, no flank pain, no urinary frequency - Musculoskeletal back pain, no joint swelling, no limited range of motion, no neck pain - Integumentary dry skin, pruritus, jaundice, no rash, no wounds - Neurological weakness, no abnormal gait, no confusion, no dizziness, no focal weakness - Psychiatric other (EtOH abuse), no anxiety, no depression - Hematologic/Lymphatic no easy bleeding, no easy bruising General Surgery Exam Initial Vital Signs Temp Pulse Resp BP Pulse Ox 98.5 F 100 16 113/72 98 08/07/18 14:47 08/07/18 14:47 08/07/18 14:47 08/07/18 14:47 08/07/18 14:47 - General physical appearance no distress, moderate pain, jaundice - Eyes PERRL, normal ocular movement, icteric - ENT no congestion, dry mucosa. negative: nasal discharge - Neck no masses, trachea midline, no lymphadectomy, no venous distension - Respiratory normal respiratory effort, clear to auscultation - Cardiovascular Cardiovascular exam: Present: RRR - Abdomen Abdomen general surgery: Present: bowel sounds present, distended, tender. Absent: guarding, rebound Abdominal Tenderness: Present: RUQ Hernia: Present: inguinal (right) - Genitourinary Present: normal penis with no external lesions - Integumentary Integumentary general surgery: Present: warm and dry, other (jaundice) - Neurologic Present: CN 2-12 grossly intact, normal coordination - Musculoskeletal Present: normal posture - Psychiatric Psychiatric general surgery: Present: A&Ox3, appropriate Exam Initial Vital Signs Temp Pulse Resp BP Pulse Ox 98.5 F 100 16 113/72 98 08/07/18 14:47 08/07/18 14:47 08/07/18 14:47 08/07/18 14:47 08/07/18 14:47 Results - Labs 08/08/18 02:31 08/08/18 02:31 Abnormal lab results WBC 11.5 K/mcL (4.3-11.1) H 08/07/18 16:25 RBC 3.00 M/mcL (4.19-5.50) L 08/08/18 02:31 Hgb 10.7 g/dL (12.9-16.9) L 08/08/18 02:31 Hct 30.0 % (37.5-50.1) L 08/08/18 02:31 MCH 35.7 pg (28.0-33.3) H 08/08/18 02:31 MCHC 35.7 g/dL (31.6-35.5) H 08/08/18 02:31 RDW 16.5 % (11.5-14.5) H 08/08/18 02:31 1.8 K/mcL (0.0-1.3) H 08/08/18 02:31 PT 24.8 Seconds (9.4-12.1) H 08/07/18 16:25 Sodium 130 mEq/L (136-145) L 08/08/18 02:31 Potassium 3.1 mEq/L (3.5-5.1) L 08/08/18 02:31 Chloride 97 mEq/L (98-107) L 08/08/18 02:31 0.57 mg/dL (0.70-1.30) L 08/08/18 02:31 27 (6-26) H 08/07/18 16:25 270 (280-300) L 08/08/18 02:31 Calcium 7.2 mg/dL (8.6-10.3) L 08/08/18 02:31 Phosphorus 1.5 mg/dL (2.7-4.5) L 08/08/18 02:31 Magnesium 1.5 mg/dL (1.6-2.6) L 08/07/18 16:25 1391 ng/mL (20-250) H 08/08/18 12:59 7.4 mg/dL (0.3-1.0) H 08/08/18 02:31 AST 156 Units/L (13-39) H 08/08/18 02:31 ALT 66 Units/L (7-52) H 08/08/18 02:31 154 Units/L (34-104) H 08/08/18 02:31 5.5 g/dL (6.4-8.9) L 08/08/18 02:31 2.5 g/dL (3.5-5.7) L 08/08/18 02:31 0.8 (1.1-2.2) L 08/08/18 02:31 3 mg/dL (40-59) L 08/08/18 02:31 28.3 (0-4.9) H 08/08/18 02:31 Diabetes panel 08/07/18 08/08/18 Range/Units 16:25 02:31 Sodium 130 L 130 L (136-145) mEq/L Potassium 2.9 L 3.1 L (3.5-5.1) mEq/L Chloride 95 L 97 L (98-107) mEq/L Carbon Dioxide 27 24 (23-29) mEq/L BUN 16 14 (8-23) mg/dL Creatinine 0.60 L 0.57 L (0.70-1.30) mg/dL Glucose 95 98 (70-105) mg/dL Calcium 7.7 L 7.2 L (8.6-10.3) mg/dL AST 182 H 156 H (13-39) Units/L ALT 74 H 66 H (7-52) Units/L Alkaline Phosphatase 152 H 154 H (34-104) Units/L Albumin 2.7 L 2.5 L (3.5-5.7) g/dL Triglycerides 104 (< 150) mg/dL HDL Cholesterol 3 L (40-59) mg/dL Calcium panel 08/07/18 08/08/18 Range/Units 16:25 02:31 Calcium 7.7 L 7.2 L (8.6-10.3) mg/dL Phosphorus 2.0 L 1.5 L (2.7-4.5) mg/dL Albumin 2.7 L 2.5 L (3.5-5.7) g/dL Pituitary panel 08/07/18 08/08/18 Range/Units 16:25 02:31 Sodium 130 L 130 L (136-145) mEq/L Potassium 2.9 L 3.1 L (3.5-5.1) mEq/L Chloride 95 L 97 L (98-107) mEq/L Carbon Dioxide 27 24 (23-29) mEq/L BUN 16 14 (8-23) mg/dL Creatinine 0.60 L 0.57 L (0.70-1.30) mg/dL Glucose 95 98 (70-105) mg/dL Calcium 7.7 L 7.2 L (8.6-10.3) mg/dL Adrenal panel 08/07/18 08/08/18 Range/Units 16:25 02:31 Sodium 130 L 130 L (136-145) mEq/L Potassium 2.9 L 3.1 L (3.5-5.1) mEq/L Chloride 95 L 97 L (98-107) mEq/L Carbon Dioxide 27 24 (23-29) mEq/L BUN 16 14 (8-23) mg/dL Creatinine 0.60 L 0.57 L (0.70-1.30) mg/dL Glucose 95 98 (70-105) mg/dL Calcium 7.7 L 7.2 L (8.6-10.3) mg/dL Total Bilirubin 8.4 H 7.4 H (0.3-1.0) mg/dL AST 182 H 156 H (13-39) Units/L ALT 74 H 66 H (7-52) Units/L Alkaline Phosphatase 152 H 154 H (34-104) Units/L Albumin 2.7 L 2.5 L (3.5-5.7) g/dL All other labs normal. - Imaging Additional studies: ABD MRI reveals findings c/w acute cholecystitis with cholelithiasis Consult Discharge Plan - Plan Instructions: Laparoscopic Cholecystectomy (DC) [facility]: [facility] [Primary Care Provider[facility] -
[2018-08-08 14:54] LABS: Hepatitis A Antibody IgM Nonreactive (Nonreactive)
[2018-08-08] MEDS ORDERED: Pregabalin 75 MG CAPSULE ONE (16:09)
[2018-08-08] MEDS ORDERED: *HR* PHENYLEPHRINE 1,000 MCG/10 ML SYRINGE IVP ONE (16:54)
[2018-08-08] MEDS ORDERED: EPHEDrine 50 MG/ML VIAL ONE (16:55)
--- NOTE | 2018-08-08 19:06 | Anesthesia Evaluation Post Op ---
Date of Encounter: 08/08/18 Time of Encounter: 18:50 - Discharge PostOp Status: Transfer Patient to floor (Patient's vital signs have been reviewed. Patient is stable postoperatively and has adequately recovered from anesthesia. Patient is determined to have stable airway patency and respiratory function including respiratory rate and oxygen saturation. Patient has a stable heart rate, blood pressure and adequate hydration. Patients mental status is acceptable. Patients temperature is appropriate. Pain and nausea are adequately controlled.)
--- NOTE | 2018-08-08 20:08 | Operative Note ---
Date of procedure: 08/08/18 Pre-op diagnosis: Acute cholecystitis with cholelithiasis Post-op diagnosis: same Procedure: Laparoscopic cholecystectomy with intraoperative cholangiogram Complications: None Surgeon: Myriam Romero Was there an clinical education assistant present: Yes Metal Gauge Maker: Jodie Roy Estimated blood loss (cc): 10 Specimen: gallbladder Condition: stable Disposition: PACU Procedure in Detail: This 63 year-old male was taken to the operating room and placed in the supine position. The anterior abdominal wall is prepped and draped in the usual sterile fashion. A 1-2 cm curvilinear incision is made in the infraumbilical area and subcutaneous tissue was dissected down to anterior rectus fascia. Fascia is grasped with a Tim clamp, stay sutures were placed in the fascia is divided. Posterior rectus fascia and peritoneum were elevated and divided in the same manner. A Wiliam port is inserted. Immediately encountered was drainage of ascites. Exploration of the intraabdominal cavity reveals a large amount of ascites. 3 L are drained. Also appreciate it is an abnormal cirrhotic liver. Finally, the gallbladder appeared abnormal with significant distention and acute on chronic omental adhesions.. Under direct visualization after the injection of 0.5% Marcaine the three right subcostal 5 mm ports were inserted. The patient is placed in reverse Trendelenburg position and rotated to the left. The gallbladder is grasped and retracted in cephalad direction. It is also grasped and retracted in the lateral direction. The cystic duct was carefully identified circumferentially dissected and clipped near the neck of the gallbladder. A cholecystodochotomy is made. A cholangiocatheter is placed in the cystic duct. A cholangiogram is obtained. There is easy filling of the CBD, common hepatic duct and hepatic radicals. Easy filling of the duodenum is appreciated. When the cholangiocatheter is completed, the catheter is removed. The cystic duct is doubly clipped and divided between clips. The gallbladder is dissected off the liver bed using electrocautery. Hemostasis was perfected using electrocautery. The gallbladder is removed from the intra-abdominal cavity using an Endo Catch bag. Copious irrigation is carried out in the intra- abdominal cavity, Arzate's pouch and the gallbladder fossa. The pneumoperitoneum was allowed to escape under direct visualization. The ports were removed also under direct visualization. The fascia at the infraumbilical incision is closed using 0 Vicryl sutures. All skin incisions are closed using 4-0 Monocryl subcuticular stitches. Steri-Strips are placed. Sterile dressing is placed. Patient tolerated procedure well was taken to the PACU in good condition.
[2018-08-09] MEDS: Piperacillin/Tazobactam 3.375 GM in 0.9 % Sodium Chloride Mini Bag 100 ML IVPB SCH ×4 (00:24→23:47)
[2018-08-09] MEDS: 0.9 % Sodium Chloride 1,000 ML IVC SCH ×2 (02:03→08:29)
[2018-08-09 02:50] LABS: Basophils % 0.2 %; Hematocrit 31.7 % (37.5-50.1); Hemoglobin 11.2 g/dL (12.9-16.9); Immature Granulocytes % 0.6 % (0-4); Lymphocytes # 0.5 K/mcL (0.6-4.6); Lymphocytes % 4.6 %; Mean Corpuscular HGB Conc 35.3 g/dL (31.6-35.5); Mean Corpuscular Volume 101.9 fL (83.0-100.0); Mean Platelet Volume 10.2 fL (9.4-12.4); Monocytes # 0.4 K/mcL (0.0-1.3); Monocytes % 4.2 %; Neutrophils # 9.2 K/mcL (1.6-8.9); Platelet Count 226 K/mcL (140-400); Red Blood Count 3.11 M/mcL (4.19-5.50); Red Cell Distribution Width 17.4 % (11.5-14.5); Segmented Neutrophils % 90.4 %; White Blood Count 10.2 K/mcL (4.3-11.1)
[2018-08-09 02:56] LABS: INR 2.2; Prothrombin Time 25.5 Seconds (9.4-12.1)
[2018-08-09 03:06] LABS: Alanine Aminotransferase 71 Units/L (7-52); Albumin 2.3 g/dL (3.5-5.7); Albumin/Globulin Ratio 0.8 (1.1-2.2); Alkaline Phosphatase 122 Units/L (34-104); Aspartate Amino Transferase 179 Units/L (13-39); BUN/Creatinine Ratio 23 (6-26); Bilirubin,Total 7.8 mg/dL (0.3-1.0); Blood Urea Nitrogen 14 mg/dL (8-23); Calcium 7.2 mg/dL (8.6-10.3); Carbon Dioxide 20 mEq/L (23-29); Chloride 102 mEq/L (98-107); Globulin 2.8 g/dL (2.4-3.5); Glucose 122 mg/dL (70-105); Magnesium 1.5 mg/dL (1.6-2.6); Osmolality,Calculated 276 (280-300); Phosphorous 3.2 mg/dL (2.7-4.5); Potassium 3.6 mEq/L (3.5-5.1); Sodium 132 mEq/L (136-145); Total Protein 5.1 g/dL (6.4-8.9); eGFR For African Americans > 60 (> 60); eGFR For Non-African Americans > 60 (> 60)
[2018-08-09] MEDS: amLODIPine 5 MG TABLET PO SCH (08:28)
[2018-08-09] MEDS: Lisinopril 20 MG TABLET PO SCH (08:28)
--- NOTE | 2018-08-09 10:33 | AcuteCareSurgery Progress Note ---
<Miguel Calvin - Last Filed: 08/09/18 15:15> Date of Encounter: 08/09/18 Objective Vital Signs - Last 8 Hours Temp Pulse Resp BP Pulse Ox 08/09/18 10:58 97.9 F 88 16 115/72 97 08/09/18 08:26 103/66 Intake and Output 08/08/18 08/09/18 08/09/18 23:59 07:59 15:59 Intake Total 1260 / 4337.2 711.2 / 1411.2 700 / 1411.2 Output Total 700 / 800 100 / 800 Balance 1250 / 4327.2 11.2 / 611.2 600 / 611.2 Intake: IV Fluids 1260 / 4337.2 711.2 / 811.2 100 / 811.2 0.9 % Sodium Chloride 1,000 ML 1000 / 3000 @ 125 mls/hr IVC .Q8H [facility] Rx#: [id number] Zosyn 3.375 GM In 0.9 % Sodium 100 / 100 Chloride (Mini-Bag +) 100 ML @ 25 mls/hr IVPB Q8HR [facility] Rx#: [id number] Potassium Phosphate 44 MEQ In 0 260 / 260 .9 % Sodium Chloride 250 ML @ 40 mls/hr IVPB ONCE ONE Rx#: [id number] Vitamin B-1 100 MG Folvite 1 MG 511.2 / 511.2 M.v.i. Adult 10 ml In 0.9 % Sodium Chloride 500 ML @ 85.2 mls/hr IVPB DAILY@1800 [facility] Rx#: [id number] Ancef 2,000 MG In 0.9 % Sodium 100 / 200 100 / 200 Chloride 100 ML @ 200 mls/hr IVPB Q8HR [facility] Rx#:[id number] Oral 0 / 0 600 / 600 Output: Urine 700 / 800 100 / 800 Estimated Blood Loss Other: Meal Lunch Percent of Meal Consumed 15% Weight 73 kg Patient Weight 08/09/18 23:59 Weight 73 kg - Labs 08/09/18 02:22 08/09/18 02:22 Diabetes panel 08/09/18 Range/Units 02:22 Sodium 132 L (136-145) mEq/L Potassium 3.6 (3.5-5.1) mEq/L Chloride 102 (98-107) mEq/L Carbon Dioxide 20 L (23-29) mEq/L BUN 14 (8-23) mg/dL Creatinine 0.61 L (0.70-1.30) mg/dL Glucose 122 H (70-105) mg/dL Calcium 7.2 L (8.6-10.3) mg/dL AST 179 H (13-39) Units/L ALT 71 H (7-52) Units/L Alkaline Phosphatase 122 H (34-104) Units/L Albumin 2.3 L (3.5-5.7) g/dL Calcium panel 08/09/18 Range/Units 02:22 Calcium 7.2 L (8.6-10.3) mg/dL Phosphorus 3.2 (2.7-4.5) mg/dL Albumin 2.3 L (3.5-5.7) g/dL Pituitary panel 08/09/18 Range/Units 02:22 Sodium 132 L (136-145) mEq/L Potassium 3.6 (3.5-5.1) mEq/L Chloride 102 (98-107) mEq/L Carbon Dioxide 20 L (23-29) mEq/L BUN 14 (8-23) mg/dL Creatinine 0.61 L (0.70-1.30) mg/dL Glucose 122 H (70-105) mg/dL Calcium 7.2 L (8.6-10.3) mg/dL Adrenal panel 08/09/18 Range/Units 02:22 Sodium 132 L (136-145) mEq/L Potassium 3.6 (3.5-5.1) mEq/L Chloride 102 (98-107) mEq/L Carbon Dioxide 20 L (23-29) mEq/L BUN 14 (8-23) mg/dL Creatinine 0.61 L (0.70-1.30) mg/dL Glucose 122 H (70-105) mg/dL Calcium 7.2 L (8.6-10.3) mg/dL Total Bilirubin 7.8 H (0.3-1.0) mg/dL AST 179 H (13-39) Units/L ALT 71 H (7-52) Units/L Alkaline Phosphatase 122 H (34-104) Units/L Albumin 2.3 L (3.5-5.7) g/dL Consult Discharge Plan - Plan Instructions: Laparoscopic Cholecystectomy (DC) Additional Instructions: General Surgical Discharge Instructions 1. No pushing, pulling, or lifting greater than 15 lbs for 2-4 weeks (depending upon procedure). 2. You may shower beginning today, but no tub baths, soaking, or swimming for 2 weeks. 3. You may resume driving when you are off narcotics and are safe to react in a car. 4. Take ibuprofen every 8 hours for discomfort. If this does not relieve discomfort, you may take the as needed Percocet. Take narcotics as directed. Do not take more narcotics then directed and do not share your narcotics with any other person. Do not drink alcohol while on narcotics. 5. Take stool softeners (Colace) or a water based laxative (Miralax) while taking narcotics. You may hold for loose stools. 6. Report any fevers greater than 100.5F, increase abdominal discomfort, drainage that looks like pus, increased redness or pain at the surgical site, or any vomiting. 7. Report any pain in the calves, shortness of breath, or rapid heartbeat. 8. Follow-up in the office as directed. 9. If you were prescribed antibiotics, do not stop them without talking to your provider. [facility]errals: [facility] [Primary Care Provider[facility] - Prescriptions: Amoxicillin/Clavulanate [Augmentin] 875 mg PO BIDWM 7 Days #14 tablet Docusate [Colace] 100 mg PO DAILY #30 capsule Oxycodone HCl 5 mg PO Q6HR 7 Days #28 tablet - Attending Attestation I examined this patient and my medical decision-making was reviewed with the Resident Physician. I agree with the documented findings, disposition and treatment plan as described except to the extent set forth below. I reviewed the above assessment and evaluation and agree with the above plan. We will sign off the make certain the patient has a follow-up to see surgery in 2 weeks. <Layla Goel - Last Filed: 08/09/18 16:48> Date of Encounter: 08/09/18 Time of Encounter: 10:31 - Assessment and Plan (1) Acute cholecystitis due to biliary calculus Current Visit: Yes Status: Acute Transferred from [facility] for evaluation of acute cholecystitis Status post laparoscopic cholecystectomy day 1 Patient to continue IV antibiotics over admission and be discharged with one week of Augmentin. Patient has a history of cirrhosis and ascites, he is at higher risk for peritonitis postop as well as delayed wound healing. Continue Zosyn Continue regular diet Pain control- oxycodone Nausea-Zofran Increase ambulation From a surgical standpoint, patient can return to the [place] when cleared by primary team Patient follow-up with surgical service in 2 weeks, this appointment will be arranged Prescriptions for Augmentin, oxycodone, Colace to be placed in patient's chart for when he is discharged. Surgery to sign off. Please call if you have any further questions. (2) Cirrhosis Current Visit: Yes Status: Acute Patient has a history of cirrhosis secondary to alcohol abuse Ascites was drained intraoperatively yesterday Patient to return to the [facility] for alcohol detox when cleared by primary team Higher risk for delayed wound healing secondary to ascites as well as pe ritonitis Patient to continue IV antibiotics and Augmentin for 7 days on discharge Qualifiers: Hepatic cirrhosis type: alcoholic cirrhosis Ascites presence: with ascites Qualified Code(s): K70.31 - Alcoholic cirrhosis of liver with ascites Subjective Narrative: Patient seen and examined at bedside today. He states that he is doing well, pain is controlled. He has passed flatus but has not yet had a bowel movement. He denies fever, chills, nausea, vomiting, chest pain, shortness of breath, calf pain. Objective Vital Signs - Last 8 Hours Temp Pulse Resp BP Pulse Ox 08/09/18 08:26 103/66 08/09/18 06:46 97.6 F 96 16 99/67 92 08/09/18 03:05 98.1 F 93 16 104/70 93 Intake and Output 08/08/18 08/09/18 08/09/18 23:59 07:59 15:59 Intake Total 1260 / 4337.2 711.2 / 811.2 100 / 811.2 Output Total 10 700 / 700 Balance 1250 / 4327.2 11.2 / 111.2 100 / 111.2 Intake: IV Fluids 1260 / 4337.2 711.2 / 811.2 100 / 811.2 0.9 % Sodium Chloride 1,000 ML 1000 / 3000 @ 125 mls/hr IVC .Q8H [facility] Rx#: [id number] Zosyn 3.375 GM In 0.9 % Sodium 100 / 100 Chloride (Mini-Bag +) 100 ML @ 25 mls/hr IVPB Q8HR [facility] Rx#: [id number] Potassium Phosphate 44 MEQ In 0 260 / 260 .9 % Sodium Chloride 250 ML @ 40 mls/hr IVPB ONCE ONE Rx#: [id number] Vitamin B-1 100 MG Folvite 1 MG 511.2 / 511.2 M.v.i. Adult 10 ml In 0.9 % Sodium Chloride 500 ML @ 85.2 mls/hr IVPB DAILY@1800 [facility] Rx#: [id number] Ancef 2,000 MG In 0.9 % Sodium 100 / 200 100 / 200 Chloride 100 ML @ 200 mls/hr IVPB Q8HR [facility] Rx#:[id number] Oral 0 / 0 Output: Urine 700 / 700 Estimated Blood Loss Other: Weight 73 kg Patient Weight 08/09/18 23:59 Weight 73 kg - General physical appearance well developed, well nourished, no distress - Eyes PERRL, normal ocular movement - ENT normal mucosa - Neck Neck exam: trachea midline, no venous distension - Respiratory normal expansion, normal respiratory effort, clear to auscultation - Cardiovascular Cardiovascular exam: Present: RRR, no murmurs/rubs/gallops - Abdomen Abdomen: Present: bowel sounds present, soft, tender (Appropriately tender to palpation around the incisions.). Absent: guarding, rebound - Incision Incision: Present: clean and dry, intact - Integumentary no rash - Neurologic normal coordination, normal sensation - Musculoskeletal normal posture - Psychiatric oriented to time, oriented to person, oriented to place, speech is normal, memory intact - Labs 08/09/18 02:22 08/09/18 02:22 Diabetes panel 08/09/18 Range/Units 02:22 Sodium 132 L (136-145) mEq/L Potassium 3.6 (3.5-5.1) mEq/L Chloride 102 (98-107) mEq/L Carbon Dioxide 20 L (23-29) mEq/L BUN 14 (8-23) mg/dL Creatinine 0.61 L (0.70-1.30) mg/dL Glucose 122 H (70-105) mg/dL Calcium 7.2 L (8.6-10.3) mg/dL AST 179 H (13-39) Units/L ALT 71 H (7-52) Units/L Alkaline Phosphatase 122 H (34-104) Units/L Albumin 2.3 L (3.5-5.7) g/dL Calcium panel 08/09/18 Range/Units 02:22 Calcium 7.2 L (8.6-10.3) mg/dL Phosphorus 3.2 (2.7-4.5) mg/dL Albumin 2.3 L (3.5-5.7) g/dL Pituitary panel 08/09/18 Range/Units 02:22 Sodium 132 L (136-145) mEq/L Potassium 3.6 (3.5-5.1) mEq/L Chloride 102 (98-107) mEq/L Carbon Dioxide 20 L (23-29) mEq/L BUN 14 (8-23) mg/dL Creatinine 0.61 L (0.70-1.30) mg/dL Glucose 122 H (70-105) mg/dL Calcium 7.2 L (8.6-10.3) mg/dL Adrenal panel 08/09/18 Range/Units 02:22 Sodium 132 L (136-145) mEq/L Potassium 3.6 (3.5-5.1) mEq/L Chloride 102 (98-107) mEq/L Carbon Dioxide 20 L (23-29) mEq/L BUN 14 (8-23) mg/dL Creatinine 0.61 L (0.70-1.30) mg/dL Glucose 122 H (70-105) mg/dL Calcium 7.2 L (8.6-10.3) mg/dL Total Bilirubin 7.8 H (0.3-1.0) mg/dL AST 179 H (13-39) Units/L ALT 71 H (7-52) Units/L Alkaline Phosphatase 122 H (34-104) Units/L Albumin 2.3 L (3.5-5.7) g/dL
--- NOTE | 2018-08-09 13:55 | Internal Med Progress Note ---
Hospitalist Progress Note - Encounter Date of Encounter: 08/09/18 Time of Encounter: 13:53 - Subjective Interval History: Patient seen and examined earlier today with family present at bedside. Patient is s/p laproscopic cholecystectomy on 08/08/18. He reports significant improvement in his abdominal pain and denies any nausea or vomiting Reports of feeling dizzy this morning and was noted to be hypotensive at that time. No dizziness reported during my evaluation Ten point ROS is negative except as listed above No overnight events reported - Exam Vitals: Temp Pulse Resp BP Pulse Ox 97.9 F 88 16 115/72 97 08/09/18 10:58 08/09/18 10:58 08/09/18 10:58 08/09/18 10:58 08/09/18 10:58 Exam: General: No acute distress, AAO x 3 HEENT: EOMI, PERRLA, NC/AT, + scleral icterus Respiratory: Clear to auscultate bilaterally, no wheezing, no rales Cardiovascular: Regular, Rate, Rhythm, No murmurs GI: Soft, Non tender, distended abd, normal bowel sounds, no guarding, no rebound tenderness, steri strips in place at the site of lap sharon Ext: No edema, no tenderness, positive pulses Neuro: AAO x 3, no focal deficits Rest of the clinical exam is noncontributory - Summary of Assessment and Plan Summary of Assessment and Plan: Mr. Whitley is a 63 year old male with PMH of alcohol abuse, cirrhosis of the liver, hypertension, tobacco abuse who is transferred from [facility] for evaluation of acute cholecystitis. Assessment/Plan: 1. Acute choledocholithiasis/acute cholecystitis secondary to biliary sludge MRCP reviewed GI evaluation appreciated Surgery evaluation appreciated s/p laproscopic cholecystectomy on 08/08/18, POD #1 continue IV abx at this time pt has been advanced to regular diet by surgery discharge planning initiated, tentative d/c in am to [facility]-pending placement 2. Alcohol abuse will closely monitor for alcohol withdrawals CIWA monitoring Lorazepam as needed per CIWA scores Folate, Thiamine supplementation concern for DTs, will closely monitor 3. Hx of HTN BP within acceptable range at this time closely monitor BP hold antihypertensive meds for SBP<100 4. Tobacco abuse smoking cessation counseling provided patient does not want to quit refused nicotine supplementation therapy at this time 5. Elevated transaminases with hx of cirrhosis of the liver GI evaluation appreciated hepatitis profile: nonreactive continue to closely monitor INR > 2 , hold off any anticoagulation at this time 6. Electrolyte abnormality Hypokalemia, Hypophosphatemia resolved Hypomagnesemia: Mg suppelmented continue to monitor electrolytes and replace as needed 7. Elevated ferritin level hematology evaluation requested hx of chronic anemia DVT ppx: INR > 2 yesterday, hold off any anticoagulation at this time code status: Full code Care plan discussed with patient/family/Consulting provider/RN/case management/social security benefits interviewer - Time Spent with Patient Total time spent is greater than 50% in coordination of care (as documented) at patient's floor/unit and/or counseling patient: Internal Medicine: Result - Labs CBC & Chem 7: 08/09/18 02:22 08/09/18 02:22 Labs: Short CBC 08/09/18 Range/Units 02:22 WBC 10.2 (4.3-11.1) K/mcL Hgb 11.2 L (12.9-16.9) g/dL Hct 31.7 L (37.5-50.1) % Plt Count 226 (140-400) K/mcL Neutrophils # 9.2 H (1.6-8.9) K/mcL BMP 08/09/18 02:22 Sodium 132 L Potassium 3.6 Chloride 102 Carbon Dioxide 20 L BUN 14 Creatinine 0.61 L Glucose 122 H Calcium 7.2 L Liver Function 08/09/18 Range/Units 02:22 Total Bilirubin 7.8 H (0.3-1.0) mg/dL AST 179 H (13-39) Units/L ALT 71 H (7-52) Units/L Alkaline Phosphatase 122 H (34-104) Units/L Albumin 2.3 L (3.5-5.7) g/dL - ABG Interpretation ABG results: PT/INR, D-dimer PT 25.5 Seconds (9.4-12.1) H 08/09/18 02:22 - Impressions Impressions Cholangiogram,Operative 08/08/18 00:00 IMPRESSION: 1. Fluoroscopy provided for procedure guidance. Please refer to procedure note for further details. D/ / 08/08/2018 17:35:31 Afia Fernandez MD / [facility] Interpreting Provider: Afia Fernandez MD Consult Discharge Plan - Plan Instructions: Laparoscopic Cholecystectomy (DC) Additional Instructions: General Surgical Discharge Instructions 1. No pushing, pulling, or lifting greater than 15 lbs for 2-4 weeks (depending upon procedure). 2. You may shower beginning today, but no tub baths, soaking, or swimming for 2 weeks. 3. You may resume driving when you are off narcotics and are safe to react in a car. 4. Take ibuprofen every 8 hours for discomfort. If this does not relieve discomfort, you may take the as needed Percocet. Take narcotics as directed. Do not take more narcotics then directed and do not share your narcotics with any other person. Do not drink alcohol while on narcotics. 5. Take stool softeners (Colace) or a water based laxative (Miralax) while taking narcotics. You may hold for loose stools. 6. Report any fevers greater than 100.5F, increase abdominal discomfort, drainage that looks like pus, increased redness or pain at the surgical site, or any vomiting. 7. Report any pain in the calves, shortness of breath, or rapid heartbeat. 8. Follow-up in the office as directed. 9. If you were prescribed antibiotics, do not stop them without talking to your provider. [facility] Care Provider[facility] - Prescriptions: Amoxicillin/Clavulanate [Augmentin] 875 mg PO BIDWM 7 Days #14 tablet Docusate [Colace] 100 mg PO DAILY #30 capsule Oxycodone HCl 5 mg PO Q6HR 7 Days #28 tablet
[2018-08-09] MEDS: Sodium Bicarbonate 75 MEQ in 0.45 % Sodium Chloride 1,000 ML IVC SCH (15:20)
--- NOTE | 2018-08-09 17:04 | Oncology Inp Consult Note ---
<Rick Arriaga - Last Filed: 08/09/18 17:06> Date of Encounter: 08/09/18 - Data of Consult Requesting Physician: Eva Webber MD Primary Care Provider: [facility]CP [facility] Medications and Allergies Amlodipine Besylate/Benazepril [Lotrel 10-20 mg Capsule] 1 each PO DAILY 08/07/18 [History] Fluticasone Propionate Nasal [Flonase] 50 mcg NS DAILY PRN 08/07/18 [History] Folic Acid 1 mg PO DAILY 08/07/18 [History] Thiamine (B-1) [Vitamin B-1] 100 mg PO DAILY 08/07/18 [History] Amoxicillin/Clavulanate [Augmentin] 875 mg PO BIDWM 7 Days #14 tablet 08/09/18 [Rx] Docusate [Colace] 100 mg PO DAILY #30 capsule 08/09/18 [Rx] Oxycodone HCl 5 mg PO Q6HR 7 Days #28 tablet 08/09/18 [Rx] Allergy/AdvReac Type Severity Reaction Status Date / Time No Known Allergies Allergy Verified 08/07/18 14:59 Consult Discharge Plan - Plan Instructions: Laparoscopic Cholecystectomy (DC) Additional Instructions: General Surgical Discharge Instructions 1. No pushing, pulling, or lifting greater than 15 lbs for 2-4 weeks (depending upon procedure). 2. You may shower beginning today, but no tub baths, soaking, or swimming for 2 weeks. 3. You may resume driving when you are off narcotics and are safe to react in a car. 4. Take ibuprofen every 8 hours for discomfort. If this does not relieve discomfort, you may take the as needed Percocet. Take narcotics as directed. Do not take more narcotics then directed and do not share your narcotics with any other person. Do not drink alcohol while on narcotics. 5. Take stool softeners (Colace) or a water based laxative (Miralax) while taking narcotics. You may hold for loose stools. 6. Report any fevers greater than 100.5F, increase abdominal discomfort, drainage that looks like pus, increased redness or pain at the surgical site, or any vomiting. 7. Report any pain in the calves, shortness of breath, or rapid heartbeat. 8. Follow-up in the office as directed. 9. If you were prescribed antibiotics, do not stop them without talking to your provider. [facility]errals: [facility] [Primary Care Provider] - Prescriptions: Oxycodone HCl 5 mg PO Q6HR 7 Days #28 tablet Amoxicillin/Clavulanate [Augmentin] 875 mg PO BIDWM 7 Days #14 tablet Docusate [Colace] 100 mg PO DAILY #30 capsule Inpatient Charges Provider: Dr. Margaret Arriaga Consult - Inpatient: [id number] - Attending Attestation I examined this patient and my medical decision-making was reviewed with the Advanced Practice Nurse. I agree with the documented findings, disposition and treatment plan as described except to the extent set forth below. Patient admitted for abdominal pain and cholecystitis. Transfer to [facility] for further evaluation. He had a lap sharon performed on 08/08/18. We have been c/s for elevated ferritin in the presence of cirrhosis. Will check iron studies, B12 level, folate level, and SPEP Will also obtain a blood smear, GGT, aPTT, and mixing study Thanks for the consult, we will continue to follow along with you. <Lavinia De La Cruz - Last Filed: 08/09/18 18:15> Date of Encounter: 08/09/18 Time of Encounter: 16:55 - Data of Consult Patient: new to practice Requesting Physician: Eva Webber MD Primary Care Provider: [facility]CP [facility] - Consult Narrative Reason for consult: elevated ferritin History of present illness: Naya schuler 63yo male, transferred from the [facility] due to cholecystitis. During this hospital stay, he was noted to have an elevated ferritin (1391) in the presence of cirrhosis. GI following patient. Acute hepatitis panel negative. Hematology consulted due to concerns for hemachromatosis. Medical history: HTN, cirrhosis, and alcohol abuse Social history: Daily alcohol use: Tobacco use: current, everyday smoker. Drug use: marijuana in the past, denies IV drug use. Will require transportation assistance for follow-ups at the [facility]. Past Med Surg Social Fam HX - Past Medical History Medical history: hypertension, liver disease Psychiatric history: no psych history - Social History Smoking Status: Current every day smoker Smokeless Tobacco Status: No Alcohol use: occasionally, heavy (Daily drinker/Vodka. Recently checked into [facility] for EtOH Detox but transferred here for surgical Mgmt. Last drink Tuesday08/06/2018.) Drug use: none Constitutional: Present: fatigue Cardiovascular: Present: lightheadedness Respiratory: Absent: cough, dyspnea Gastrointestinal: Present: abdominal pain Neurological: Absent: abnormal movements, abnormal speech, weakness Oncology - Exam - Constitutional General appearance: cooperative, no acute distress - Eye Eye exam: Present: scleral icterus - Respiratory Respiratory exam: Present: CTAB - Cardiovascular Cardiovascular exam: Present: RRR, +S1, +S2 - Neurological Exam Neurological exam: Present: alert, oriented X3, no focal deficits. Absent: facial droop, speech deficit - Psychiatric Psychiatric exam: Present: normal affect, normal mood Oncology Inpatient Results Labs: Laboratory Results - last 24 hr 08/09/18 08/09/18 08/09/18 02:22 02:22 02:22 WBC 10.2 RBC 3.11 L Hgb 11.2 L Hct 31.7 L MCV 101.9 H MCH 36.0 H MCHC 35.3 RDW 17.4 H Plt Count 226 MPV 10.2 Immature Gran % 0.6 Seg Neutrophils % 90.4 Lymphocytes % 4.6 Monocytes % 4.2 Eosinophils % 0.0 Basophils % 0.2 Neutrophils # 9.2 H Lymphocytes # 0.5 L Monocytes # 0.4 Eosinophils # 0.0 Basophils # 0.0 Smear Path Review PT 25.5 H INR 2.2 APTT Sodium 132 L Potassium 3.6 Chloride 102 Carbon Dioxide 20 L BUN 14 Creatinine 0.61 L Est GFR ( Amer) > 60 Est GFR (Non-Af Amer) > 60 BUN/Creatinine Ratio 23 Glucose 122 H Calculated Osmolality 276 L Calcium 7.2 L Phosphorus 3.2 Magnesium 1.5 L Iron % Saturation Transferrin Total Bilirubin 7.8 H GGT AST 179 H ALT 71 H Alkaline Phosphatase 122 H Serum Total Protein 5.1 L Albumin 2.3 L Globulin 2.8 Albumin/Globulin Ratio 0.8 L Vitamin B12 Folate 08/09/18 08/09/18 08/09/18 16:26 16:26 16:26 WBC RBC Hgb Hct MCV MCH MCHC RDW Plt Count MPV Immature Gran % Seg Neutrophils % Lymphocytes % Monocytes % Eosinophils % Basophils % Neutrophils # Lymphocytes # Monocytes # Eosinophils # Basophils # Smear Path Review PT INR APTT 29.8 Sodium Potassium Chloride Carbon Dioxide BUN Creatinine Est GFR ( Amer) Est GFR (Non-Af Amer) BUN/Creatinine Ratio Glucose Calculated Osmolality Calcium Phosphorus Magnesium Iron 87 % Saturation 74 H Transferrin 84 L Total Bilirubin GGT 219 H AST ALT Alkaline Phosphatase Serum Total Protein Albumin Globulin Albumin/Globulin Ratio Vitamin B12 > 1500 H Folate 11.3 08/09/18 16:26 WBC RBC Hgb Hct MCV MCH MCHC RDW Plt Count MPV Immature Gran % Seg Neutrophils % Lymphocytes % Monocytes % Eosinophils % Basophils % Neutrophils # Lymphocytes # Monocytes # Eosinophils # Basophils # Smear Path Review TNP PT INR APTT Sodium Potassium Chloride Carbon Dioxide BUN Creatinine Est GFR ( Amer) Est GFR (Non-Af Amer) BUN/Creatinine Ratio Glucose Calculated Osmolality Calcium Phosphorus Magnesium Iron % Saturation Transferrin Total Bilirubin GGT AST ALT Alkaline Phosphatase Serum Total Protein Albumin Globulin Albumin/Globulin Ratio Vitamin B12 Folate
[2018-08-09 17:14] LABS: % Iron Saturation 74 % (20-55); Gamma Glutamyl Transpeptidase 219 Units/L (2-30); Iron 87 mcg/dL (65-175); Transferrin 84 mg/dL (203-362)
[2018-08-09] MEDS: Thiamine (B-1) 100 MG, Folic Acid 1 MG, MVI, adult with vitamin K 10 ML in 0.9 % Sodi... IVPB SCH (17:27)
[2018-08-09 17:40] LABS: Folate 11.3 ng/mL (3.0-16.0)
[2018-08-09 17:46] LABS: Vitamin B12 > 1500 pg/mL (250-1100)
[2018-08-10] MEDS: Sodium Bicarbonate 75 MEQ in 0.45 % Sodium Chloride 1,000 ML IVC SCH ×2 (01:28→08:30)
[2018-08-10 02:09] LABS: Basophils % 0.1 %; Eosinophils % 0.1 %; Hemoglobin 11.9 g/dL (12.9-16.9); Immature Granulocytes % 0.6 % (0-4); Lymphocytes # 1.7 K/mcL (0.6-4.6); Lymphocytes % 9.4 %; Mean Corpuscular HGB Conc 36.1 g/dL (31.6-35.5); Mean Corpuscular Hemoglobin 36.7 pg (28.0-33.3); Mean Corpuscular Volume 101.9 fL (83.0-100.0); Mean Platelet Volume 10.2 fL (9.4-12.4); Monocytes # 1.7 K/mcL (0.0-1.3); Monocytes % 9.6 %; Neutrophils # 14.1 K/mcL (1.6-8.9); Platelet Count 251 K/mcL (140-400); Red Blood Count 3.24 M/mcL (4.19-5.50); Red Cell Distribution Width 17.2 % (11.5-14.5); Segmented Neutrophils % 80.2 %; White Blood Count 17.6 K/mcL (4.3-11.1)
[2018-08-10 02:25] LABS: Alanine Aminotransferase 61 Units/L (7-52); Albumin 2.2 g/dL (3.5-5.7); Albumin/Globulin Ratio 0.7 (1.1-2.2); Alkaline Phosphatase 161 Units/L (34-104); Aspartate Amino Transferase 149 Units/L (13-39); BUN/Creatinine Ratio 24 (6-26); Bilirubin,Total 6.3 mg/dL (0.3-1.0); Blood Urea Nitrogen 14 mg/dL (8-23); Calcium 7.2 mg/dL (8.6-10.3); Carbon Dioxide 21 mEq/L (23-29); Chloride 101 mEq/L (98-107); Glucose 123 mg/dL (70-105); Magnesium 1.6 mg/dL (1.6-2.6); Osmolality,Calculated 268 (280-300); Phosphorous 1.1 mg/dL (2.7-4.5); Potassium 3.1 mEq/L (3.5-5.1); Sodium 128 mEq/L (136-145); Total Protein 5.2 g/dL (6.4-8.9); eGFR For African Americans > 60 (> 60); eGFR For Non-African Americans > 60 (> 60)
[2018-08-10] MEDS ORDERED: Potassium Phosphate 44 MEQ in 0.9 % Sodium Chloride 250 ML IVPB ONE (08:20)
[2018-08-10] MEDS: amLODIPine 5 MG TABLET PO SCH (08:27)
[2018-08-10] MEDS: Lisinopril 20 MG TABLET PO SCH (08:28)
[2018-08-10] MEDS: Folic Acid 1 MG TABLET PO SCH (08:29)
[2018-08-10] MEDS: Thiamine (B-1) 100 MG TABLET PO SCH (08:29)
[2018-08-10] MEDS: Piperacillin/Tazobactam 3.375 GM in 0.9 % Sodium Chloride Mini Bag 100 ML IVPB SCH ×3 (08:30→23:58)
[2018-08-10 10:56] LABS: AFP Tumor Marker Non-Pregnant 2 ng/mL (0-9)
[2018-08-10 11:02] LABS: ANA IgG by ELISA NONE DETECTED (None Detected); F-Actin (sm muscle) Ab IgG 11 Units (0-19); Myeloperoxidase Ab 0 AU/mL (0-19); Serine Protease-3 Antibody 2 AU/mL (0-19)
[2018-08-10] MEDS: 0.9 % Sodium Chloride 1,000 ML IVC SCH (11:53)
--- NOTE | 2018-08-10 12:33 | Internal Med Progress Note ---
Hospitalist Progress Note - Encounter Date of Encounter: 08/10/18 Time of Encounter: 12:28 - Subjective Interval History: Patient seen and examined at bedside. Resting in bed and states he feels weak. Reports of worsening of his abd distention. No nausea or vomiting reported. No overnight events reported. Ten point ROS is negative except as listed above As per social work/case management: [facility] does not have any availability in their detox units for three weeks and patient is placed on their wait list. Pt is in agreement to be discharged to home and will go to the [facility] detox center when a spot is available. - Exam Vitals: Temp Pulse Resp BP Pulse Ox 98.5 F 88 16 94/61 96 08/10/18 10:44 08/10/18 10:44 08/10/18 10:44 08/10/18 10:44 08/10/18 10:44 Exam: General: No acute distress, AAO x 3 HEENT: EOMI, PERRLA, NC/AT, + scleral icterus Respiratory: Clear to auscultate bilaterally, no wheezing, no rales Cardiovascular: Regular, Rate, Rhythm, No murmurs GI: Soft, Non tender, distended abd, positive fluid shift, normal bowel sounds, no guarding, no rebound tenderness, steri strips in place at the site of lap sharon Ext: No edema, no tenderness, positive pulses Neuro: AAO x 3, no focal deficits Rest of the clinical exam is noncontributory - Summary of Assessment and Plan Summary of Assessment and Plan: Mr. Whitley is a 63 year old male with PMH of alcohol abuse, cirrhosis of the liver, hypertension, tobacco abuse who is transferred from [facility] for evaluation of acute cholecystitis. Assessment/Plan: 1. Acute choledocholithiasis/acute cholecystitis secondary to biliary sludge MRCP reviewed GI evaluation appreciated Surgery evaluation appreciated s/p laproscopic cholecystectomy on 08/08/18, POD #2 continue IV abx at this time pt has been advanced to regular diet by surgery leukocytosis likely reactive however given worsening of ascites, will obtain abd US and paracentesis with concern for SBP 2. Alcohol abuse will closely monitor for alcohol withdrawals CIWA monitoring Lorazepam as needed per CIWA scores Folate, Thiamine supplementation concern for DTs, will closely monitor 3. Hx of HTN BP within acceptable range at this time closely monitor BP hold antihypertensive meds for SBP<100 4. Tobacco abuse smoking cessation counseling provided patient does not want to quit refused nicotine supplementation therapy at this time 5. Elevated transaminases with hx of cirrhosis of the liver GI evaluation appreciated hepatitis profile: nonreactive continue to closely monitor INR > 2 , hold off any anticoagulation at this time 6. Electrolyte abnormality Hypokalemia, Hypophosphatemia: K, PHos supplemented Hypomagnesemia: resolved NAGMA: sodium bicarb initiated Hyponatremia: will start gentle IV fluid resuscitation repeat BMP at 1900 continue to monitor electrolytes and replace as needed 7. Elevated ferritin level hematology evaluation appreciated continue workup as per hematology DVT ppx: INR > 2 yesterday, hold off any anticoagulation at this time code status: Full code Care plan discussed with patient/Consulting provider/RN/case management/social media marketing specialist - Time Spent with Patient Total time spent is greater than 50% in coordination of care (as documented) at patient's floor/unit and/or counseling patient: Internal Medicine: Result - Labs CBC & Chem 7: 08/10/18 01:45 08/10/18 01:45 Labs: Short CBC 08/10/18 Range/Units 01:45 WBC 17.6 H D (4.3-11.1) K/mcL Hgb 11.9 L (12.9-16.9) g/dL Hct 33.0 L (37.5-50.1) % Plt Count 251 (140-400) K/mcL Neutrophils # 14.1 H (1.6-8.9) K/mcL BMP 08/10/18 01:45 Sodium 128 L Potassium 3.1 L Chloride 101 Carbon Dioxide 21 L BUN 14 Creatinine 0.59 L Glucose 123 H Calcium 7.2 L Liver Function 08/09/18 08/10/18 Range/Units 16:26 01:45 Total Bilirubin 6.3 H (0.3-1.0) mg/dL GGT 219 H (2-30) Units/L AST 149 H (13-39) Units/L ALT 61 H (7-52) Units/L Alkaline Phosphatase 161 H (34-104) Units/L Albumin 2.2 L (3.5-5.7) g/dL - ABG Interpretation ABG results: PT/INR, D-dimer PT 25.5 Seconds (9.4-12.1) H 08/09/18 02:22 Consult Discharge Plan - Plan Instructions: Laparoscopic Cholecystectomy (DC) Additional Instructions: General Surgical Discharge Instructions 1. No pushing, pulling, or lifting greater than 15 lbs for 2-4 weeks (depending upon procedure). 2. You may shower beginning today, but no tub baths, soaking, or swimming for 2 weeks. 3. You may resume driving when you are off narcotics and are safe to react in a car. 4. Take ibuprofen every 8 hours for discomfort. If this does not relieve discomfort, you may take the as needed Percocet. Take narcotics as directed. Do not take more narcotics then directed and do not share your narcotics with any other person. Do not drink alcohol while on narcotics. 5. Take stool softeners (Colace) or a water based laxative (Miralax) while taking narcotics. You may hold for loose stools. 6. Report any fevers greater than 100.5F, increase abdominal discomfort, drainage that looks like pus, increased redness or pain at the surgical site, or any vomiting. 7. Report any pain in the calves, shortness of breath, or rapid heartbeat. 8. Follow-up in the office as directed. 9. If you were prescribed antibiotics, do not stop them without talking to your provider. [facility]errals: [facility] [Primary Care Provider[facility] - Prescriptions: Amoxicillin/Clavulanate [Augmentin] 875 mg PO BIDWM 7 Days #14 tablet Docusate [Colace] 100 mg PO DAILY #30 capsule Oxycodone HCl 5 mg PO Q6HR 7 Days #28 tablet
--- NOTE | 2018-08-10 13:51 | Oncology Inp Progress Note ---
<Lavinia De La Cruz M - Last Filed: 08/10/18 14:35> Date of Encounter: 08/10/18 Time of Encounter: 12:50 (1) Elevated ferritin Current Visit: Yes Status: Acute Assessment and plan: Iron profile: iron 87, saturation , transferrin 84. Transferrin saturation elevated. Plan: Hemochromatosis mutation ordered. MRI abdomen (liver) with and without contrast. Discussed with MRI and will plan for exam on Tuesday morning. Echocardiogram ordered. Cardiac MRI unavailable. (2) Cirrhosis Current Visit: Yes Status: Acute Assessment and plan: Elevated ferritin in the presence of cirrhosis. GI consulted. Appreciate their recommendations. Qualifiers: Hepatic cirrhosis type: alcoholic cirrhosis Ascites presence: with ascites Qualified Code(s): K70.31 - Alcoholic cirrhosis of liver with ascites Oncology: Subj Interval history: Mr. Whitley is alert and oriented, sitting on the edge of the bed. He continues with feeling dizzy and lightheaded. Discussed concerns for hemochromatosis and iron deposits possible in heart, liver, or skin. Discussed additional labs ordered for today, along with echocardiogram (as we do not have cardiac MRI available), and MRI of liver. Patient is agreeable. Also discussed liver biopsy. Patient verbalized acceptance and await results of testing before making final decision on liver biopsy. - Additional findings Additional findings: General: Alert and oriented, well appearing. Mental Status: Affect appropriate for circumstances Skin: No rashes or petechiae. Lungs: Clear to auscultation Cardiovascular: Regular rate and rhythm. No gallops, murmurs, or rubs. Abdomen: Soft, nontender; no organomegaly or masses palpable. Extremities: No edema. No calf swelling or tenderness. No joint deformity. Neurologic: Alert, cranial nerves II-XII intact; no focal weakness or sensory abnormalities. Oncology: Obj Data - Labs CBC & Chem 7: 08/10/18 01:45 08/10/18 01:45 Consult Discharge Plan - Plan Instructions: Laparoscopic Cholecystectomy (DC) Additional Instructions: General Surgical Discharge Instructions 1. No pushing, pulling, or lifting greater than 15 lbs for 2-4 weeks (depending upon procedure). 2. You may shower beginning today, but no tub baths, soaking, or swimming for 2 weeks. 3. You may resume driving when you are off narcotics and are safe to react in a car. 4. Take ibuprofen every 8 hours for discomfort. If this does not relieve discomfort, you may take the as needed Percocet. Take narcotics as directed. Do not take more narcotics then directed and do not share your narcotics with any other person. Do not drink alcohol while on narcotics. 5. Take stool softeners (Colace) or a water based laxative (Miralax) while taking narcotics. You may hold for loose stools. 6. Report any fevers greater than 100.5F, increase abdominal discomfort, drainage that looks like pus, increased redness or pain at the surgical site, or any vomiting. 7. Report any pain in the calves, shortness of breath, or rapid heartbeat. 8. Follow-up in the office as directed. 9. If you were prescribed antibiotics, do not stop them without talking to your provider. [facility]errals: [facility] [Primary Care Provider] - Prescriptions: Oxycodone HCl 5 mg PO Q6HR 7 Days #28 tablet Amoxicillin/Clavulanate [Augmentin] 875 mg PO BIDWM 7 Days #14 tablet Docusate [Colace] 100 mg PO DAILY #30 capsule Inpatient Charges Provider: Dr. Margaret Arriaga <Riya Arriagamsi - Last Filed: 08/10/18 14:53> Date of Encounter: 08/10/18 Oncology: Obj Data - Labs CBC & Chem 7: 08/10/18 01:45 08/10/18 01:45 Inpatient Charges Provider: Dr. Margaret Arriaga Follow up - Inpatient: [id number] - Attending Attestation I examined this patient and my medical decision-making was reviewed with the Advanced Practice Nurse. I agree with the documented findings, disposition and treatment plan as described except to the extent set forth below. -Fe 87, % sat 74, transferrin 84, ferritin 391 -Transferrin saturation > 45% concerning for hemochromatosis -Will check gene mutations for hemochromatosis -Will order an MRI of the liver w/ and w/o contrast for further work up and will check an ECHO -Can consider a liver biopsy for diagnosis as well
[2018-08-10] MEDS ORDERED: Gadolinium Contrast Agent (WT Based) IV PRN (14:03)
[2018-08-10 19:59] LABS: BUN/Creatinine Ratio 23 (6-26); Blood Urea Nitrogen 14 mg/dL (8-23); Calcium 7.4 mg/dL (8.6-10.3); Carbon Dioxide 25 mEq/L (23-29); Chloride 98 mEq/L (98-107); Glucose 94 mg/dL (70-105); Osmolality,Calculated 274 (280-300); Potassium 3.6 mEq/L (3.5-5.1); Sodium 132 mEq/L (136-145); eGFR For African Americans > 60 (> 60); eGFR For Non-African Americans > 60 (> 60)
[2018-08-11] MEDS: 0.9 % Sodium Chloride 1,000 ML IVC SCH ×2 (03:50→14:40)
[2018-08-11 05:20] LABS: Basophils % 0.2 %; Eosinophils % 0.1 %; Hematocrit 33.4 % (37.5-50.1); Hemoglobin 11.9 g/dL (12.9-16.9); Immature Granulocytes % 0.7 % (0-4); Lymphocytes # 1.8 K/mcL (0.6-4.6); Lymphocytes % 10.5 %; Mean Corpuscular HGB Conc 35.6 g/dL (31.6-35.5); Mean Corpuscular Hemoglobin 36.1 pg (28.0-33.3); Mean Corpuscular Volume 101.2 fL (83.0-100.0); Mean Platelet Volume 10.5 fL (9.4-12.4); Monocytes # 1.8 K/mcL (0.0-1.3); Monocytes % 10.1 %; Neutrophils # 13.7 K/mcL (1.6-8.9); Platelet Count 232 K/mcL (140-400); Red Cell Distribution Width 17.1 % (11.5-14.5); Segmented Neutrophils % 78.4 %; White Blood Count 17.4 K/mcL (4.3-11.1)
[2018-08-11 05:41] LABS: Alanine Aminotransferase 62 Units/L (7-52); Albumin 2.2 g/dL (3.5-5.7); Albumin/Globulin Ratio 0.8 (1.1-2.2); Alkaline Phosphatase 159 Units/L (34-104); Aspartate Amino Transferase 156 Units/L (13-39); BUN/Creatinine Ratio 22 (6-26); Bilirubin,Total 6.3 mg/dL (0.3-1.0); Blood Urea Nitrogen 13 mg/dL (8-23); Calcium 7.3 mg/dL (8.6-10.3); Carbon Dioxide 21 mEq/L (23-29); Chloride 99 mEq/L (98-107); Globulin 2.9 g/dL (2.4-3.5); Glucose 89 mg/dL (70-105); Magnesium 1.4 mg/dL (1.6-2.6); Osmolality,Calculated 268 (280-300); Phosphorous 2.4 mg/dL (2.7-4.5); Potassium 3.6 mEq/L (3.5-5.1); Sodium 129 mEq/L (136-145); Total Protein 5.1 g/dL (6.4-8.9); eGFR For African Americans > 60 (> 60); eGFR For Non-African Americans > 60 (> 60)
[2018-08-11] MEDS: Piperacillin/Tazobactam 3.375 GM in 0.9 % Sodium Chloride Mini Bag 100 ML IVPB SCH ×2 (08:31→17:25)
[2018-08-11] MEDS: Folic Acid 1 MG TABLET PO SCH (08:32)
[2018-08-11] MEDS: amLODIPine 5 MG TABLET PO SCH ×2 (08:32→08:40)
[2018-08-11] MEDS: Thiamine (B-1) 100 MG TABLET PO SCH (08:32)
[2018-08-11] MEDS: Lisinopril 20 MG TABLET PO SCH ×2 (08:32→08:40)
[2018-08-11] MEDS ORDERED: 0.9 % Sodium Chloride 250 ML IVC ONE (08:43)
[2018-08-11] MEDS ORDERED: Albumin 25% 12.5gm/50mL 12.5 GM/50 ML IV.SOLN IVPB ONE (14:04)
--- NOTE | 2018-08-11 14:04 | Internal Med Progress Note ---
Hospitalist Progress Note - Encounter Date of Encounter: 08/11/18 Time of Encounter: 13:58 - Subjective Interval History: Patient seen and examined earlier today with RN present at bedside. States he feels dizzy when he goes from sitting to standing position. Noted to remain hypotensive and was given 250cc of NS fluid bolus, which improved the patient's BP and resolved dizziness. Abd US reported trace ascites Hematology on board and recommended MRI abd for further evaluation of hemochromatosis Pt reports of having multiple episodes of diarrhea yesterday but none today. Abd pain resolved. No nausea or vomiting reported. Ten point ROS is negative except as listed above - Exam Vitals: Temp Pulse Resp BP Pulse Ox 98.4 F 100 15 109/71 93 08/11/18 10:47 08/11/18 10:47 08/11/18 10:47 08/11/18 10:47 08/11/18 10:47 Exam: General: No acute distress, AAO x 3 HEENT: EOMI, NC/AT, + scleral icterus Respiratory: Clear to auscultate bilaterally, no wheezing, no rales Cardiovascular: Regular, Rate, Rhythm, No murmurs GI: Soft, Non tender, distended abd, normal bowel sounds, no guarding, no rebound tenderness, steri strips in place at the site of lap sharon Ext: No edema, no tenderness, positive pulses Neuro: AAO x 3, no focal deficits Rest of the clinical exam is noncontributory - Summary of Assessment and Plan Summary of Assessment and Plan: Mr. Whitley is a 63 year old male with PMH of alcohol abuse, cirrhosis of the liver, hypertension, tobacco abuse who is transferred from [facility] for evaluation of acute cholecystitis. Assessment/Plan: 1. Acute choledocholithiasis/acute cholecystitis secondary to biliary sludge MRCP reviewed GI evaluation appreciated Surgery evaluation appreciated s/p laproscopic cholecystectomy on 08/08/18, POD #3 continue IV abx at this time pt has been advanced to regular diet by surgery leukocytosis persist, Abd US reported trace ascites, will continue current IV abx at this time and closely monitor If becomes febrile, will obtain blood cultures and broaden abx coverage 2. Alcohol abuse will closely monitor for alcohol withdrawals CIWA monitoring Lorazepam as needed per CIWA scores Folate, Thiamine supplementation concern for DTs, will closely monitor 3. Hx of HTN Was hypotensive and given 0.9% NS 250cc bolus, repeat BP within acceptable range closely monitor BP hold antihypertensive meds for SBP<100 4. Tobacco abuse smoking cessation counseling provided patient does not want to quit refused nicotine supplementation therapy at this time 5. Elevated transaminases with hx of cirrhosis of the liver GI evaluation appreciated hepatitis profile: nonreactive continue to closely monitor INR > 2 , hold off any anticoagulation at this time 6. Electrolyte abnormality Hypokalemia: resolved Hypophosphatemia:PHos supplemented Hypomagnesemia: resolved NAGMA: sodium bicarb supplementation Hyponatremia: monitor off IV fluids at this time repeat BMP at 1900 continue to monitor electrolytes and replace as needed 7. Elevated ferritin level hematology evaluation appreciated continue workup as per hematology awaiting MRI abd results, will f/u with hematology DVT ppx: INR > 2 yesterday, hold off any anticoagulation at this time code status: Full code Care plan discussed with patient/RN/case management/adoption social worker - Time Spent with Patient Total time spent is greater than 50% in coordination of care (as documented) at patient's floor/unit and/or counseling patient: Internal Medicine: Result - Labs CBC & Chem 7: 08/11/18 04:26 08/11/18 04:26 Labs: Short CBC 08/11/18 Range/Units 04:26 WBC 17.4 H (4.3-11.1) K/mcL Hgb 11.9 L (12.9-16.9) g/dL Hct 33.4 L (37.5-50.1) % Plt Count 232 (140-400) K/mcL Neutrophils # 13.7 H (1.6-8.9) K/mcL BMP 08/10/18 08/11/18 19:01 04:26 Sodium 132 L 129 L Potassium 3.6 3.6 Chloride 98 99 Carbon Dioxide 25 21 L BUN 14 13 Creatinine 0.60 L 0.58 L Glucose 94 89 Calcium 7.4 L 7.3 L Liver Function 08/11/18 Range/Units 04:26 Total Bilirubin 6.3 H (0.3-1.0) mg/dL AST 156 H (13-39) Units/L ALT 62 H (7-52) Units/L Alkaline Phosphatase 159 H (34-104) Units/L Albumin 2.2 L (3.5-5.7) g/dL - ABG Interpretation ABG results: PT/INR, D-dimer PT 25.5 Seconds (9.4-12.1) H 08/09/18 02:22 - Impressions Impressions Echocardiogram 08/10/18 12:52 Impressions: LVEF 60%. Normal LV chamber size, wall thickness and function. Normal right ventricular structure and function. Mild tricuspid regurgitation. No pulmonary hypertension. Left Ventricular Wall Motion: Rest Echo Findings All wall segments showed normal motion. Findings: Study Quality * Technically adequate exam. ECG Findings * Normal sinus rhythm. Left Ventricle * LVEF 60%. * Normal LV chamber size, wall thickness and systolic function. * Normal left ventricular diastolic function. Right Ventricle * Normal right ventricular structure and function. Left Atrium * Normal left atrial size. Right Atrium * Normal right atrial size. Interatrial Septum * Interatrial septum not well evaluated. * No evidence of PFO by color Doppler. Aortic Valve * Trileaflet aortic valve with normal function. * No aortic stenosis. * No aortic regurgitation. Mitral Valve * Normal mitral valve structure. * No mitral stenosis. * Trace mitral regurgitation. Tricuspid Valve * Normal tricuspid valve structure. * No tricuspid stenosis. * Mild tricuspid regurgitation. * Estimated RVSP is 24 mmHg. * Estimated RA pressure is 3 mmHg. * No pulmonary hypertension. Pulmonic Valve * Pulmonic valve is not well visualized. * No pulmonic stenosis. * No pulmonic regurgitation. Aorta * Normally sized aortic root. Pericardium * The pericardium appears normal. IVC * The IVC is not dilated. * > 50% respiratory change Abdomen MRI 08/11/18 14:03 IMPRESSION: 1. [id number] hepatic steatosis with possible cirrhosis. No liver lesion seen. 2. Evidence of iron deposition, greater in the spleen than the liver, compatible with secondary hemosiderosis. 3. Mild ascites. D/ / Mark Rooney MD / Mark Rooney MD Interpreting Provider: Mark Rooney MD Consult Discharge Plan - Plan Instructions: Laparoscopic Cholecystectomy (DC) Additional Instructions: General Surgical Discharge Instructions 1. No pushing, pulling, or lifting greater than 15 lbs for 2-4 weeks (depending upon procedure). 2. You may shower beginning today, but no tub baths, soaking, or swimming for 2 weeks. 3. You may resume driving when you are off narcotics and are safe to react in a car. 4. Take ibuprofen every 8 hours for discomfort. If this does not relieve discomfort, you may take the as needed Percocet. Take narcotics as directed. Do not take more narcotics then directed and do not share your narcotics with any other person. Do not drink alcohol while on narcotics. 5. Take stool softeners (Colace) or a water based laxative (Miralax) while taking narcotics. You may hold for loose stools. 6. Report any fevers greater than 100.5F, increase abdominal discomfort, drainage that looks like pus, increased redness or pain at the surgical site, or any vomiting. 7. Report any pain in the calves, shortness of breath, or rapid heartbeat. 8. Follow-up in the office as directed. 9. If you were prescribed antibiotics, do not stop them without talking to your provider. [facility]errals: [facility]Primary Care Provider[facility] - Prescriptions: Amoxicillin/Clavulanate [Augmentin] 875 mg PO BIDWM 7 Days #14 tablet Docusate [Colace] 100 mg PO DAILY #30 capsule Oxycodone HCl 5 mg PO Q6HR 7 Days #28 tablet
[2018-08-11 20:34] LABS: BUN/Creatinine Ratio 21 (6-26); Blood Urea Nitrogen 12 mg/dL (8-23); Calcium 7.5 mg/dL (8.6-10.3); Carbon Dioxide 23 mEq/L (23-29); Chloride 98 mEq/L (98-107); Glucose 106 mg/dL (70-105); Osmolality,Calculated 266 (280-300); Potassium 3.1 mEq/L (3.5-5.1); Sodium 128 mEq/L (136-145); eGFR For African Americans > 60 (> 60); eGFR For Non-African Americans > 60 (> 60)
--- NOTE | 2018-08-11 21:34 | Oncology Inp Progress Note ---
Date of Encounter: 08/11/18 Time of Encounter: 16:00 (1) Cirrhosis Current Visit: Yes Status: Acute Assessment and plan: He has alcoholic cirrhosis with decompensation. He may also have underlying hereditary hemochromatosis which may be contributing to his liver failure. Alcoholism and cirrhosis can cause a similar elevation of ferritin and transferrin saturation. Hereditary hemochromatosis panel has been obtained and is currently pending. 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 No acute change in management at current. He will likely benefit from therapeutic phlebotomy if found to have recurrent hemochromatosis. He has stopped drinking alcohol approximately 2 weeks ago. He will require a follow-up and this will depend upon discharge plans. Qualifiers: Hepatic cirrhosis type: alcoholic cirrhosis Ascites presence: with ascites Qualified Code(s): K70.31 - Alcoholic cirrhosis of liver with ascites (2) Elevated ferritin Current Visit: Yes Status: Acute Assessment and plan: As above. We are currently awaiting hereditary hemachromatosis panel. Further decision making pending Oncology: Subj Interval history: Mr. Whitley is resting comfortably. Please try watching television. He feels well overall. No abdominal pain, nausea or vomiting. No fever, chills or symptoms of infection. He remains very fatigued and tired. He denies any bleeding symptoms epistaxis, hemoptysis, hematemesis or melena. He is currently deliberating discharge planning. [facility] However he may proceed along with his family in [place] or return home to [place]. - Constitutional General appearance: cooperative, no acute distress - Head Head exam: Present: atraumatic, normal inspection, normocephalic - Eye Eye exam: Present: normal appearance, scleral icterus, conjuntiva pink - ENT ENT exam: Present: mucous membranes moist, normal oropharynx - Neck Neck exam: Present: lymphadenopathy, normal inspection, tenderness - Respiratory Respiratory exam: Present: CTAB - Cardiovascular Cardiovascular exam: Present: RRR - GI/Abdominal GI/Abdominal exam: Present: normal bowel sounds, tenderness - Extremities Exam Extremities exam: Present: normal inspection, pedal edema - Back Exam Back exam: Present: normal inspection - Neurological Exam Neurological exam: Present: alert, CN II-XII intact, oriented X3 Oncology: Obj Data - Labs CBC & Chem 7: 08/11/18 04:26 08/11/18 19:43 - Imaging and cardiology MRI - abdomen Status: image reviewed by me Additional comments: MRI OF THE ABDOMEN WITH AND WITHOUT CONTRAST, 08/11/2018 12:59 pm FINDINGS: Image quality degraded by motion artifact. Liver demonstrates a mildly nodular contour with mild to moderate steatosis. On iron deposition sequences, the liver demonstrates mild signal loss while the spleen demonstrates moderate signal loss. No liver lesion seen. Hepatic vasculature is patent. The gallbladder has been removed. No significant biliary ductal dilatation although motion artifact limits evaluation. Spleen, pancreas, adrenals are unremarkable. Kidneys demonstrate symmetric enhancement without hydronephrosis. Bilateral renal cysts measure up to 5.3 cm. No upper abdominal lymphadenopathy. Mild ascites. Visualized osseous structures and gastrointestinal tract are unremarkable. Abdominal aorta is normal caliber. MR/MR abdomen wo/w con IMPRESSION: 1. Bqxg-[id number] hepatic steatosis with possible cirrhosis. No liver lesion seen. 2. Evidence of iron deposition, greater in the spleen than the liver, compatible with secondary hemosiderosis. 3. Mild ascites. Consult Discharge Plan - Plan Instructions: Laparoscopic Cholecystectomy (DC) Additional Instructions: General Surgical Discharge Instructions 1. No pushing, pulling, or lifting greater than 15 lbs for 2-4 weeks (depending upon procedure). 2. You may shower beginning today, but no tub baths, soaking, or swimming for 2 weeks. 3. You may resume driving when you are off narcotics and are safe to react in a car. 4. Take ibuprofen every 8 hours for discomfort. If this does not relieve discomfort, you may take the as needed Percocet. Take narcotics as directed. Do not take more narcotics then directed and do not share your narcotics with any other person. Do not drink alcohol while on narcotics. 5. Take stool softeners (Colace) or a water based laxative (Miralax) while taking narcotics. You may hold for loose stools. 6. Report any fevers greater than 100.5F, increase abdominal discomfort, drainage that looks like pus, increased redness or pain at the surgical site, or any vomiting. 7. Report any pain in the calves, shortness of breath, or rapid heartbeat. 8. Follow-up in the office as directed. 9. If you were prescribed antibiotics, do not stop them without talking to your provider. [facility]errals: [facility] [Primary Care Provider] - Prescriptions: Oxycodone HCl 5 mg PO Q6HR 7 Days #28 tablet Amoxicillin/Clavulanate [Augmentin] 875 mg PO BIDWM 7 Days #14 tablet Docusate [Colace] 100 mg PO DAILY #30 capsule Inpatient Charges Provider: Dr. Janet Oneal Follow up - Inpatient: [id number]
[2018-08-12] MEDS: Piperacillin/Tazobactam 3.375 GM in 0.9 % Sodium Chloride Mini Bag 100 ML IVPB SCH ×4 (02:15→23:28)
[2018-08-12 02:41] LABS: Basophils # 0.1 K/mcL (0.0-0.2); Basophils % 0.4 %; Eosinophils # 0.1 K/mcL (0.0-0.6); Eosinophils % 0.4 %; Hematocrit 34.9 % (37.5-50.1); Hemoglobin 12.4 g/dL (12.9-16.9); Immature Granulocytes % 0.8 % (0-4); Lymphocytes # 1.9 K/mcL (0.6-4.6); Lymphocytes % 11.4 %; Mean Corpuscular HGB Conc 35.5 g/dL (31.6-35.5); Mean Corpuscular Hemoglobin 35.6 pg (28.0-33.3); Mean Corpuscular Volume 100.3 fL (83.0-100.0); Mean Platelet Volume 10.5 fL (9.4-12.4); Monocytes # 1.6 K/mcL (0.0-1.3); Monocytes % 9.2 %; Neutrophils # 13.1 K/mcL (1.6-8.9); Platelet Count 221 K/mcL (140-400); Red Blood Count 3.48 M/mcL (4.19-5.50); Segmented Neutrophils % 77.8 %; White Blood Count 16.9 K/mcL (4.3-11.1)
[2018-08-12 02:47] LABS: INR 2.1; Prothrombin Time 23.9 Seconds (9.4-12.1)
[2018-08-12 02:57] LABS: Alanine Aminotransferase 65 Units/L (7-52); Albumin 2.4 g/dL (3.5-5.7); Albumin/Globulin Ratio 0.8 (1.1-2.2); Alkaline Phosphatase 158 Units/L (34-104); Aspartate Amino Transferase 140 Units/L (13-39); BUN/Creatinine Ratio 23 (6-26); Bilirubin,Total 6.9 mg/dL (0.3-1.0); Blood Urea Nitrogen 12 mg/dL (8-23); Calcium 7.6 mg/dL (8.6-10.3); Carbon Dioxide 22 mEq/L (23-29); Chloride 98 mEq/L (98-107); Glucose 105 mg/dL (70-105); Magnesium 1.6 mg/dL (1.6-2.6); Osmolality,Calculated 268 (280-300); Phosphorous 2.7 mg/dL (2.7-4.5); Potassium 3.1 mEq/L (3.5-5.1); Sodium 129 mEq/L (136-145); Total Protein 5.4 g/dL (6.4-8.9); eGFR For African Americans > 60 (> 60); eGFR For Non-African Americans > 60 (> 60)
[2018-08-12] MEDS: Thiamine (B-1) 100 MG TABLET PO SCH (10:58)
[2018-08-12] MEDS: Lisinopril 20 MG TABLET PO SCH (10:58)
[2018-08-12] MEDS: Folic Acid 1 MG TABLET PO SCH (10:58)
[2018-08-12] MEDS: amLODIPine 5 MG TABLET PO SCH (10:58)
[2018-08-12] MEDS: Menthol 9.1 MG LOZENGE PO PRN (11:00)
[2018-08-12] MEDS ORDERED: Albumin 25% 12.5gm/50mL 12.5 GM/50 ML IV.SOLN IVPB ONE (14:37)
--- NOTE | 2018-08-12 14:41 | Internal Med Progress Note ---
Hospitalist Progress Note - Encounter Date of Encounter: 08/12/18 Time of Encounter: 14:41 - Subjective Interval History: Pt seen and examined earlier this morning. States he feels better compared to previous day. BP improved and states he had very minimal dizziness initially when he got out of bed this morning. No recurrent episode reported. No SOB, chest pain reported. Ten point ROS is negative except listed above - Exam Vitals: Temp Pulse Resp BP Pulse Ox 98.7 F 96 16 100/63 97 08/12/18 11:24 08/12/18 11:24 08/12/18 11:24 08/12/18 11:24 08/12/18 11:24 Exam: General: No acute distress, AAO x 3 HEENT: EOMI, NC/AT, + scleral icterus Respiratory: Clear to auscultate bilaterally, no wheezing, no rales Cardiovascular: Regular, Rate, Rhythm, No murmurs GI: Soft, Non tender, distended abd, normal bowel sounds, no guarding, no rebound tenderness, steri strips in place at the site of lap sharon Ext: No edema, no tenderness, positive pulses Neuro: AAO x 3, no focal deficits Rest of the clinical exam is noncontributory - Summary of Assessment and Plan Summary of Assessment and Plan: Mr. Whitley is a 63 year old male with PMH of alcohol abuse, cirrhosis of the liver, hypertension, tobacco abuse who is transferred from [facility] for evaluation of acute cholecystitis. Assessment/Plan: 1. Acute choledocholithiasis/acute cholecystitis secondary to biliary sludge MRCP reviewed GI evaluation appreciated Surgery evaluation appreciated s/p laproscopic cholecystectomy on 08/08/18, POD #4 continue IV abx at this time pt has been advanced to regular diet by surgery leukocytosis persist, Abd US reported trace ascites, will continue current IV abx at this time and closely monitor If becomes febrile, will obtain blood cultures and broaden abx coverage 2. Alcohol abuse will closely monitor for alcohol withdrawals CIWA monitoring Lorazepam as needed per CIWA scores Folate, Thiamine supplementation concern for DTs, will closely monitor 3. Hx of HTN BP within acceptable range Will supplement another dose of albumin today given hypoalbuminemia contributing to hypotension closely monitor BP hold antihypertensive meds for SBP<100 4. Tobacco abuse smoking cessation counseling provided patient does not want to quit refused nicotine supplementation therapy at this time 5. Elevated transaminases with hx of cirrhosis of the liver GI evaluation appreciated hepatitis profile: nonreactive continue to closely monitor INR > 2 , hold off any anticoagulation at this time 6. Electrolyte abnormality Hypokalemia: K supplemented Hypophosphatemia: resolved Hypomagnesemia: resolved NAGMA: sodium bicarb supplementation Hyponatremia: monitor off IV fluids at this time, improving repeat BMP at 1900 continue to monitor electrolytes and replace as needed 7. Elevated ferritin level hematology evaluation appreciated continue workup as per hematology DVT ppx: INR > 2 yesterday, hold off any anticoagulation at this time code status: Full code Care plan discussed with patient/RN - Time Spent with Patient Total time spent is greater than 50% in coordination of care (as documented) at patient's floor/unit and/or counseling patient: Internal Medicine: Result - Labs CBC & Chem 7: 08/12/18 02:27 08/12/18 02:27 Labs: Short CBC 08/12/18 Range/Units 02:27 WBC 16.9 H (4.3-11.1) K/mcL Hgb 12.4 L (12.9-16.9) g/dL Hct 34.9 L (37.5-50.1) % Plt Count 221 (140-400) K/mcL Neutrophils # 13.1 H (1.6-8.9) K/mcL BMP 08/11/18 08/12/18 19:43 02:27 Sodium 128 L 129 L Potassium 3.1 L 3.1 L Chloride 98 98 Carbon Dioxide 23 22 L BUN 12 12 Creatinine 0.56 L 0.52 L Glucose 106 H 105 Calcium 7.5 L 7.6 L Liver Function 08/12/18 Range/Units 02:27 Total Bilirubin 6.9 H (0.3-1.0) mg/dL AST 140 H (13-39) Units/L ALT 65 H (7-52) Units/L Alkaline Phosphatase 158 H (34-104) Units/L Albumin 2.4 L (3.5-5.7) g/dL - ABG Interpretation ABG results: PT/INR, D-dimer PT 23.9 Seconds (9.4-12.1) H 08/12/18 02:27 Consult Discharge Plan - Plan Instructions: Laparoscopic Cholecystectomy (DC) Additional Instructions: General Surgical Discharge Instructions 1. No pushing, pulling, or lifting greater than 15 lbs for 2-4 weeks (depending upon procedure). 2. You may shower beginning today, but no tub baths, soaking, or swimming for 2 weeks. 3. You may resume driving when you are off narcotics and are safe to react in a car. 4. Take ibuprofen every 8 hours for discomfort. If this does not relieve discomfort, you may take the as needed Percocet. Take narcotics as directed. Do not take more narcotics then directed and do not share your narcotics with any other person. Do not drink alcohol while on narcotics. 5. Take stool softeners (Colace) or a water based laxative (Miralax) while taking narcotics. You may hold for loose stools. 6. Report any fevers greater than 100.5F, increase abdominal discomfort, drainage that looks like pus, increased redness or pain at the surgical site, or any vomiting. 7. Report any pain in the calves, shortness of breath, or rapid heartbeat. 8. Follow-up in the office as directed. 9. If you were prescribed antibiotics, do not stop them without talking to your provider. [facility]errals: [facility] [Primary Care Provider[facility] - Prescriptions: Amoxicillin/Clavulanate [Augmentin] 875 mg PO BIDWM 7 Days #14 tablet Docusate [Colace] 100 mg PO DAILY #30 capsule Oxycodone HCl 5 mg PO Q6HR 7 Days #28 tablet
[2018-08-12 16:35] LABS: Alpha 2 Globulin (PEP) 0.63 g/dL (0.48-1.05); Beta Globulin (PEP) 0.89 g/dL (0.48-1.10)
[2018-08-12 19:27] LABS: BUN/Creatinine Ratio 20 (6-26); Blood Urea Nitrogen 12 mg/dL (8-23); Calcium 7.6 mg/dL (8.6-10.3); Carbon Dioxide 22 mEq/L (23-29); Chloride 98 mEq/L (98-107); Glucose 101 mg/dL (70-105); Osmolality,Calculated 264 (280-300); Potassium 3.5 mEq/L (3.5-5.1); Sodium 127 mEq/L (136-145); eGFR For African Americans > 60 (> 60); eGFR For Non-African Americans > 60 (> 60)
[2018-08-13 01:50] LABS: Basophils # 0.1 K/mcL (0.0-0.2); Basophils % 0.3 %; Eosinophils # 0.1 K/mcL (0.0-0.6); Eosinophils % 0.6 %; Hematocrit 32.5 % (37.5-50.1); Hemoglobin 11.6 g/dL (12.9-16.9); Immature Granulocytes % 0.9 % (0-4); Lymphocytes # 1.6 K/mcL (0.6-4.6); Lymphocytes % 9.7 %; Mean Corpuscular HGB Conc 35.7 g/dL (31.6-35.5); Mean Corpuscular Hemoglobin 36.1 pg (28.0-33.3); Mean Corpuscular Volume 101.2 fL (83.0-100.0); Mean Platelet Volume 10.8 fL (9.4-12.4); Monocytes # 1.7 K/mcL (0.0-1.3); Monocytes % 10.7 %; Neutrophils # 12.5 K/mcL (1.6-8.9); Platelet Count 202 K/mcL (140-400); Red Blood Count 3.21 M/mcL (4.19-5.50); Red Cell Distribution Width 16.7 % (11.5-14.5); Segmented Neutrophils % 77.8 %
[2018-08-13 02:04] LABS: Alanine Aminotransferase 60 Units/L (7-52); Albumin 2.3 g/dL (3.5-5.7); Albumin/Globulin Ratio 0.8 (1.1-2.2); Alkaline Phosphatase 148 Units/L (34-104); Aspartate Amino Transferase 121 Units/L (13-39); BUN/Creatinine Ratio 20 (6-26); Bilirubin,Total 6.4 mg/dL (0.3-1.0); Blood Urea Nitrogen 11 mg/dL (8-23); Calcium 7.6 mg/dL (8.6-10.3); Carbon Dioxide 22 mEq/L (23-29); Chloride 97 mEq/L (98-107); Globulin 2.8 g/dL (2.4-3.5); Glucose 101 mg/dL (70-105); Magnesium 1.4 mg/dL (1.6-2.6); Osmolality,Calculated 262 (280-300); Phosphorous 1.9 mg/dL (2.7-4.5); Potassium 3.2 mEq/L (3.5-5.1); Sodium 126 mEq/L (136-145); Total Protein 5.1 g/dL (6.4-8.9); eGFR For African Americans > 60 (> 60); eGFR For Non-African Americans > 60 (> 60)
[2018-08-13] MEDS: Piperacillin/Tazobactam 3.375 GM in 0.9 % Sodium Chloride Mini Bag 100 ML IVPB SCH ×2 (07:21→16:18)
[2018-08-13] MEDS: amLODIPine 5 MG TABLET PO SCH (07:22)
[2018-08-13] MEDS: Thiamine (B-1) 100 MG TABLET PO SCH (07:22)
[2018-08-13] MEDS: Folic Acid 1 MG TABLET PO SCH (07:22)
[2018-08-13] MEDS: Lisinopril 20 MG TABLET PO SCH (07:22)
[2018-08-13] MEDS ORDERED: Potassium Chloride 20 MEQ, Lidocaine 1% 2 ML in D5% in Water 250 ML IVPB ONE (07:56)
[2018-08-13] MEDS ORDERED: Albumin 25% 12.5gm/50mL 12.5 GM/50 ML IV.SOLN IVPB ONE (07:57)
--- NOTE | 2018-08-13 08:48 | Internal Med Progress Note ---
Hospitalist Progress Note - Encounter Date of Encounter: 08/13/18 Time of Encounter: 08:43 - Subjective Interval History: Patient seen and examined with RN present at bedside. Patient resting comfortably in bed and states he feels better compared to previous day. Slept through the night. Denies any dizziness at this time. States everytime he has a BM it is loose, reports of having two loose BM yesterday. Denies any nausea or vomiting at this time. States he has not been eating much because he does not like the hospital food. No fever or chills reported Ten point ROS is negative except as listed above - Exam Vitals: Temp Pulse Resp BP Pulse Ox 98.9 F 87 17 90/54 95 08/13/18 06:38 08/13/18 06:38 08/13/18 06:38 08/13/18 06:38 08/13/18 06:38 Exam: General: No acute distress, AAO x 3 HEENT: EOMI, NC/AT, + scleral icterus Respiratory: Clear to auscultate bilaterally, no wheezing, no rales Cardiovascular: Regular, Rate, Rhythm, No murmurs GI: Soft, Non tender, distended abd, normal bowel sounds, no guarding, no rebound tenderness Ext: No edema, no tenderness, positive pulses Neuro: AAO x 3, no focal deficits Rest of the clinical exam is noncontributory - Summary of Assessment and Plan Summary of Assessment and Plan: Mr. Whitley is a 63 year old male with PMH of alcohol abuse, cirrhosis of the liver, hypertension, tobacco abuse who is transferred from [facility] for evaluation of acute cholecystitis. Assessment/Plan: 1. Acute choledocholithiasis/acute cholecystitis secondary to biliary sludge MRCP reviewed GI evaluation appreciated Surgery evaluation appreciated s/p laproscopic cholecystectomy on 08/08/18, POD #5 continue IV abx at this time pt has been advanced to regular diet by surgery leukocytosis persist, Abd US reported trace ascites, will continue current IV abx at this time and closely monitor If becomes febrile, will obtain blood cultures and broaden abx coverage 2. Alcohol abuse will closely monitor for alcohol withdrawals CIWA scores have remained 0 thus far Lorazepam as needed per CIWA scores Folate, Thiamine supplementation concern for DTs, will closely monitor 3. Hx of HTN BP within acceptable range Will supplement another dose of albumin today given hypoalbuminemia contributing to hypotension closely monitor BP hold antihypertensive meds for SBP<100 4. Tobacco abuse smoking cessation counseling provided patient does not want to quit refused nicotine supplementation therapy at this time 5. Elevated transaminases with hx of cirrhosis of the liver GI follow up requested hepatitis profile: nonreactive continue to closely monitor INR > 2 , hold off any anticoagulation at this time 6. Electrolyte abnormality Hypokalemia: K supplemented Hypophosphatemia: Phos supplemented Hypomagnesemia: Mg supplemented NAGMA: sodium bicarb supplementation Hyponatremia: started on salt tablets, nephrology evaluation requested repeat BMP q6h for close monitor of Na levels. Goal Na correction is 6-8meq in 24 hours. transfer patient to [facility] for close monitoring given metabolic derrangements will obtain stool studies to rule out C-diff given persistent diarrhea continue to monitor electrolytes and replace as needed 7. Elevated ferritin level hematology evaluation appreciated continue workup as per hematology DVT ppx: INR > 2 yesterday, hold off any anticoagulation at this time code status: Full code Care plan discussed with patient/RN - Time Spent with Patient Total time spent is greater than 50% in coordination of care (as documented) at patient's floor/unit and/or counseling patient: Internal Medicine: Result - Labs CBC & Chem 7: 08/13/18 01:10 08/13/18 01:10 Labs: Short CBC 08/13/18 Range/Units 01:10 WBC 16.0 H (4.3-11.1) K/mcL Hgb 11.6 L (12.9-16.9) g/dL Hct 32.5 L (37.5-50.1) % Plt Count 202 (140-400) K/mcL Neutrophils # 12.5 H (1.6-8.9) K/mcL BMP 08/12/18 08/13/18 18:58 01:10 Sodium 127 L 126 L Potassium 3.5 3.2 L Chloride 98 97 L Carbon Dioxide 22 L 22 L BUN 12 11 Creatinine 0.59 L 0.54 L Glucose 101 101 Calcium 7.6 L 7.6 L Liver Function 08/13/18 Range/Units 01:10 Total Bilirubin 6.4 H (0.3-1.0) mg/dL AST 121 H (13-39) Units/L ALT 60 H (7-52) Units/L Alkaline Phosphatase 148 H (34-104) Units/L Albumin 2.3 L (3.5-5.7) g/dL - ABG Interpretation ABG results: PT/INR, D-dimer PT 23.9 Seconds (9.4-12.1) H 08/12/18 02:27 Consult Discharge Plan - Plan Instructions: Laparoscopic Cholecystectomy (DC) Additional Instructions: General Surgical Discharge Instructions 1. No pushing, pulling, or lifting greater than 15 lbs for 2-4 weeks (depending upon procedure). 2. You may shower beginning today, but no tub baths, soaking, or swimming for 2 weeks. 3. You may resume driving when you are off narcotics and are safe to react in a car. 4. Take ibuprofen every 8 hours for discomfort. If this does not relieve discomfort, you may take the as needed Percocet. Take narcotics as directed. Do not take more narcotics then directed and do not share your narcotics with any other person. Do not drink alcohol while on narcotics. 5. Take stool softeners (Colace) or a water based laxative (Miralax) while taking narcotics. You may hold for loose stools. 6. Report any fevers greater than 100.5F, increase abdominal discomfort, drain age that looks like pus, increased redness or pain at the surgical site, or any vomiting. 7. Report any pain in the calves, shortness of breath, or rapid heartbeat. 8. Follow-up in the office as directed. 9. If you were prescribed antibiotics, do not stop them without talking to your provider. [facility]errals: [facility] [Primary Care Provider] - Prescriptions: Amoxicillin/Clavulanate [Augmentin] 875 mg PO BIDWM 7 Days #14 tablet Docusate [Colace] 100 mg PO DAILY #30 capsule Oxycodone HCl 5 mg PO Q6HR 7 Days #28 tablet
--- NOTE | 2018-08-13 09:43 | Oncology Inp Progress Note ---
Date of Encounter: 08/13/18 Time of Encounter: 12:15 (1) Cirrhosis Current Visit: Yes Status: Acute Assessment and plan: He has alcoholic cirrhosis. He may also have underlying hereditary hemochromatosis which may be contributing to his liver failure. Alcoholism and cirrhosis can cause a similar elevation of ferritin and transferrin saturation. Hereditary hemochromatosis panel has been obtained and is currently pending. 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 Recovering from cholecystectomy uneventfully and LFTs improving. He will likely benefit from therapeutic phlebotomy if found to have recurrent hemochromatosis. He has stopped drinking alcohol approximately 2 weeks ago. He will be moving to [place]. We would recommend establishing care at [facility] Oncology at time of discharge. Qualifiers: Hepatic cirrhosis type: alcoholic cirrhosis Ascites presence: with ascites Qualified Code(s): K70.31 - Alcoholic cirrhosis of liver with ascites (2) Elevated ferritin Current Visit: Yes Status: Acute Assessment and plan: As above. We are currently awaiting hereditary hemachromatosis panel. Further decision making pending results. Oncology: Subj Interval history: Feeling better. Still sore from surgery, but this is improving. No fever or chills. Energy is improving. LFTs improving as well. Still dizzy when getting up from the bed. He has elected to live with his brother in [place]. - Constitutional General appearance: average body habitus, cooperative, no acute distress, obese - Head Head exam: Present: atraumatic, normal inspection, normocephalic - Eye Eye exam: Present: normal appearance, scleral icterus, conjuntiva pink - ENT ENT exam: Present: mucous membranes moist, normal oropharynx - Neck Neck exam: Present: full ROM, normal inspection - Respiratory Respiratory exam: Present: CTAB - Cardiovascular Cardiovascular exam: Present: RRR - GI/Abdominal GI/Abdominal exam: Present: soft, tenderness - Extremities Exam Extremities exam: Present: normal inspection - Back Exam Back exam: Present: normal inspection - Neurological Exam Neurological exam: Present: alert, CN II-XII intact, oriented X3, no focal deficits Oncology: Obj Data - Labs CBC & Chem 7: 08/13/18 01:10 08/13/18 08:56 Consult Discharge Plan - Plan Instructions: Laparoscopic Cholecystectomy (DC) Additional Instructions: General Surgical Discharge Instructions 1. No pushing, pulling, or lifting greater than 15 lbs for 2-4 weeks (depending upon procedure). 2. You may shower beginning today, but no tub baths, soaking, or swimming for 2 weeks. 3. You may resume driving when you are off narcotics and are safe to react in a car. 4. Take ibuprofen every 8 hours for discomfort. If this does not relieve discomfort, you may take the as needed Percocet. Take narcotics as directed. Do not take more narcotics then directed and do not share your narcotics with any other person. Do not drink alcohol while on narcotics. 5. Take stool softeners (Colace) or a water based laxative (Miralax) while taking narcotics. You may hold for loose stools. 6. Report any fevers greater than 100.5F, increase abdominal discomfort, drainage that looks like pus, increased redness or pain at the surgical site, or any vomiting. 7. Report any pain in the calves, shortness of breath, or rapid heartbeat. 8. Follow-up in the office as directed. 9. If you were prescribed antibiotics, do not stop them without talking to your provider. [facility] - Prescriptions: Oxycodone HCl 5 mg PO Q6HR 7 Days #28 tablet Amoxicillin/Clavulanate [Augmentin] 875 mg PO BIDWM 7 Days #14 tablet Docusate [Colace] 100 mg PO DAILY #30 capsule Inpatient Charges Provider: Dr. Janet Oneal Follow up - Inpatient: [id number]
[2018-08-13 09:53] LABS: BUN/Creatinine Ratio 20 (6-26); Blood Urea Nitrogen 11 mg/dL (8-23); Calcium 7.6 mg/dL (8.6-10.3); Carbon Dioxide 23 mEq/L (23-29); Chloride 97 mEq/L (98-107); Glucose 101 mg/dL (70-105); Osmolality,Calculated 264 (280-300); Potassium 3.4 mEq/L (3.5-5.1); Sodium 127 mEq/L (136-145); eGFR For African Americans > 60 (> 60); eGFR For Non-African Americans > 60 (> 60)
[2018-08-13 13:30] LABS: Uric Acid < 1.5 mg/dL (2.3-7.6)
[2018-08-13 14:49] LABS: Bilirubin,Urine Small (Negative); Blood,Urine Negative (Negative); Clarity,Urine Clear (Clear); Glucose,Urine (UA) Normal (Normal); Ketones,Urine Negative (Negative); Leukocyte Esterase,Urine Small (Negative); Nitrite,Urine Negative (Negative); PH,Urine 5.5 pH Units (5.0-8.0); Protein,Urine Negative (Neg-Trace); Specific Gravity,Urine 1.016 (1.010-1.025); Urobilinogen,Urine Normal (Normal)
[2018-08-13 14:52] LABS: Bacteria,Urine None Seen per hpf (None-Few); Hyaline Casts,Urine None Seen per lpf (None-Few); RBC,Urine 0-3 per hpf (0-3); Squamous Epithelial Cell,Urine Moderate per lpf (None-Few); WBC,Urine 0-3 per hpf (0-3)
[2018-08-13 14:53] LABS: Color,Urine Yellow (Yellow)
[2018-08-13 15:47] LABS: BUN/Creatinine Ratio 18 (6-26); Blood Urea Nitrogen 10 mg/dL (8-23); Calcium 7.3 mg/dL (8.6-10.3); Carbon Dioxide 22 mEq/L (23-29); Chloride 98 mEq/L (98-107); Glucose 106 mg/dL (70-105); Osmolality,Calculated 265 (280-300); Potassium 3.2 mEq/L (3.5-5.1); Sodium 128 mEq/L (136-145); eGFR For African Americans > 60 (> 60); eGFR For Non-African Americans > 60 (> 60)
--- NOTE | 2018-08-13 18:12 | Nephrology Consult Note ---
Date of Encounter: 08/13/18 Time of Encounter: 13:00 Assessment and Plan (1) Hyponatremia Current Visit: Yes Status: Acute Hyponatremia in the setting of liver cirrhosis and prior EtOH abuse Fluid restriction at 1.5 liters advised Will check urine and serum osmolality and urine sodium Will check uric acid, TSH and cortisol levels Salt tabs 1gram tid (2) Cirrhosis Current Visit: Yes Status: Acute Qualifiers: Hepatic cirrhosis type: alcoholic cirrhosis Ascites presence: with ascites Qualified Code(s): K70.31 - Alcoholic cirrhosis of liver with ascites History of Present Illness - Reason for Consult Consult date: 08/13/18 hyponatremia Requesting physician: Eva Webber - History of Present Illness 63 y o male with PMH of HTN, liver cirrhosis with EtOH abuse (quit 2 weeks ago)s/p cholecystectomy during this hospital stay. Renal consulted today for persistent hyponatremia which is worsening during this stay. Sodium noted at 127 today, was 130 on admission. Past Med Surg Social Fam HX - Past Medical History Medical history: hypertension, liver disease Psychiatric history: no psych history - Social History Smoking Status: Current every day smoker Smokeless Tobacco Status: No Alcohol use: occasionally, heavy (Daily drinker/Vodka. Recently checked into [facility] for EtOH Detox but transferred here for surgical Mgmt. Last drink Tuesday08/06/2018.) Drug use: none Medications and Allergies Amlodipine Besylate/Benazepril [Lotrel 10-20 mg Capsule] 1 each PO DAILY 08/07/18 [History] Fluticasone Propionate Nasal [Flonase] 50 mcg NS DAILY PRN 08/07/18 [History] Folic Acid 1 mg PO DAILY 08/07/18 [History] Thiamine (B-1) [Vitamin B-1] 100 mg PO DAILY 08/07/18 [History] Amoxicillin/Clavulanate [Augmentin] 875 mg PO BIDWM 7 Days #14 tablet 08/09/18 [Rx] Docusate [Colace] 100 mg PO DAILY #30 capsule 08/09/18 [Rx] Oxycodone HCl 5 mg PO Q6HR 7 Days #28 tablet 08/09/18 [Rx] Allergy/AdvReac Type Severity Reaction Status Date / Time No Known Allergies Allergy Verified 08/07/18 14:59 Exam - Vital Signs Vital signs: Initial Vital Signs Temp Pulse Resp BP Pulse Ox 98.5 F 100 16 113/72 98 08/07/18 14:47 08/07/18 14:47 08/07/18 14:47 08/07/18 14:47 08/07/18 14:47 Vital Signs - Last 8 Hours Temp Pulse Resp BP Pulse Ox 08/13/18 16:52 98.6 F 97 16 102/70 94 08/13/18 11:16 98.4 F 100 16 111/68 92 Intake and Output 08/13/18 08/13/18 08/13/18 07:59 15:59 23:59 Intake Total 100 / 510 410 / 510 Balance 100 / 510 410 / 510 Intake: IV Fluids 100 / 510 410 / 510 Flexbumin 12.5 gm In 50 ml @ 60 50 / 50 mls/hr IVPB ONCE ONE Rx#: [id number] Zosyn 3.375 GM In 0.9 % Sodium 100 / 200 100 / 200 Chloride (Mini-Bag +) 100 ML @ 25 mls/hr IVPB Q8HR [place] Rx#: [id number] Sodium Phosphate 30 MMOL In 0.9 260 / 260 % Sodium Chloride 250 ML @ 42 mls/hr IVPB ONCE ONE Rx#: [id number] Other: # Voids 2 Weight 87 kg Patient Weight 08/13/18 23:59 Weight 87 kg Cardiology: edema (LE bilat +1) Gastrointestinal: tenderness, distended Results - Lab Results 08/13/18 01:10 08/13/18 15:12 Most recent lab results 08/13/18 08/13/18 08/13/18 01:10 08:56 14:32 Calcium 7.6 L 7.6 L Phosphorus 1.9 L Magnesium 1.4 L Urine Sodium 27.2 08/13/18 15:12 Calcium 7.3 L Phosphorus Magnesium Urine Sodium Consult Discharge Plan - Plan Instructions: Laparoscopic Cholecystectomy (DC) Additional Instructions: General Surgical Discharge Instructions 1. No pushing, pulling, or lifting greater than 15 lbs for 2-4 weeks (depending upon procedure). 2. You may shower beginning today, but no tub baths, soaking, or swimming for 2 weeks. 3. You may resume driving when you are off narcotics and are safe to react in a car. 4. Take ibuprofen every 8 hours for discomfort. If this does not relieve discomfort, you may take the as needed Percocet. Take narcotics as directed. Do not take more narcotics then directed and do not share your narcotics with any other person. Do not drink alcohol while on narcotics. 5. Take stool softeners (Colace) or a water based laxative (Miralax) while taking narcotics. You may hold for loose stools. 6. Report any fevers greater than 100.5F, increase abdominal discomfort, drainage that looks like pus, increased redness or pain at the surgical site, or any vomiting. 7. Report any pain in the calves, shortness of breath, or rapid heartbeat. 8. Follow-up in the office as directed. 9. If you were prescribed antibiotics, do not stop them without talking to your provider. [facility]errals: [facility] [Primary Care Provider[facility] - Prescriptions: Amoxicillin/Clavulanate [Augmentin] 875 mg PO BIDWM 7 Days #14 tablet Docusate [Colace] 100 mg PO DAILY #30 capsule Oxycodone HCl 5 mg PO Q6HR 7 Days #28 tablet
[2018-08-13 21:05] LABS: BUN/Creatinine Ratio 19 (6-26); Blood Urea Nitrogen 10 mg/dL (8-23); Calcium 7.3 mg/dL (8.6-10.3); Carbon Dioxide 22 mEq/L (23-29); Chloride 98 mEq/L (98-107); Glucose 98 mg/dL (70-105); Osmolality,Calculated 263 (280-300); Potassium 3.3 mEq/L (3.5-5.1); Sodium 127 mEq/L (136-145); eGFR For African Americans > 60 (> 60); eGFR For Non-African Americans > 60 (> 60)
[2018-08-14] MEDS: Piperacillin/Tazobactam 3.375 GM in 0.9 % Sodium Chloride Mini Bag 100 ML IVPB SCH ×4 (00:28→23:39)
[2018-08-14 07:05] LABS: Basophils # 0.1 K/mcL (0.0-0.2); Basophils % 0.4 %; Eosinophils # 0.1 K/mcL (0.0-0.6); Eosinophils % 0.6 %; Hemoglobin 11.1 g/dL (12.9-16.9); Immature Granulocytes % 0.7 % (0-4); Lymphocytes # 1.5 K/mcL (0.6-4.6); Lymphocytes % 9.9 %; Mean Corpuscular HGB Conc 35.8 g/dL (31.6-35.5); Mean Corpuscular Hemoglobin 36.4 pg (28.0-33.3); Mean Corpuscular Volume 101.6 fL (83.0-100.0); Mean Platelet Volume 10.7 fL (9.4-12.4); Monocytes # 1.7 K/mcL (0.0-1.3); Monocytes % 11.4 %; Neutrophils # 11.5 K/mcL (1.6-8.9); Platelet Count 177 K/mcL (140-400); Red Blood Count 3.05 M/mcL (4.19-5.50); Red Cell Distribution Width 16.7 % (11.5-14.5); White Blood Count 14.9 K/mcL (4.3-11.1)
[2018-08-14 07:34] LABS: Alanine Aminotransferase 55 Units/L (7-52); Albumin 2.2 g/dL (3.5-5.7); Albumin/Globulin Ratio 0.9 (1.1-2.2); Alkaline Phosphatase 141 Units/L (34-104); Aspartate Amino Transferase 112 Units/L (13-39); BUN/Creatinine Ratio 18 (6-26); Bilirubin,Total 5.8 mg/dL (0.3-1.0); Blood Urea Nitrogen 9 mg/dL (8-23); Calcium 7.4 mg/dL (8.6-10.3); Carbon Dioxide 21 mEq/L (23-29); Chloride 97 mEq/L (98-107); Globulin 2.5 g/dL (2.4-3.5); Glucose 87 mg/dL (70-105); Magnesium 1.5 mg/dL (1.6-2.6); Osmolality,Calculated 262 (280-300); Phosphorous 2.3 mg/dL (2.7-4.5); Potassium 3.4 mEq/L (3.5-5.1); Sodium 127 mEq/L (136-145); Total Protein 4.7 g/dL (6.4-8.9); eGFR For African Americans > 60 (> 60); eGFR For Non-African Americans > 60 (> 60)
[2018-08-14 07:45] LABS: Thyroid Stimulating Hormone 9.052 mcIU/mL (0.340-5.600)
[2018-08-14 08:12] LABS: IFE Reflexed NOT DONE
[2018-08-14] MEDS: Lisinopril 20 MG TABLET PO SCH (09:10)
[2018-08-14] MEDS: Folic Acid 1 MG TABLET PO SCH (09:10)
[2018-08-14] MEDS: amLODIPine 5 MG TABLET PO SCH (09:10)
[2018-08-14] MEDS: Thiamine (B-1) 100 MG TABLET PO SCH (09:10)
--- NOTE | 2018-08-14 14:01 | Internal Med Progress Note ---
Hospitalist Progress Note - Encounter Date of Encounter: 08/14/18 Time of Encounter: 08:20 - Subjective Interval History: patient was seen and examined at bedside. denies N/v/D. has had no fever or chills. denies PND, has had no orthopnea, denies cough. does report that his abdomen is distended denies tenderness to plapation except from his surgical sit es. tolerating PO diet. denies seizure like activity - Exam Vitals: Temp Pulse Resp BP Pulse Ox 98.0 F 95 18 101/71 97 08/14/18 07:30 08/14/18 11:22 08/14/18 11:22 08/14/18 11:22 08/14/18 11:22 Exam: General: No acute distress, AAO x 3 HEENT: EOMI, NC/AT, + scleral icterus Respiratory: Clear to auscultate bilaterally, no wheezing, no rales Cardiovascular: Regular, Rate, Rhythm, No murmurs GI: Soft, Non tender, could not appreciate rebound, distended abd, normal bowel sounds, no guarding, no rebound tenderness, well healed lap procedure scars Ext: No edema, no tenderness, positive pulses Neuro: AAO x 3, no focal deficits Rest of the clinical exam is noncontributory - Summary of Assessment and Plan Summary of Assessment and Plan: Mr. Whitley is a 63 year old male with PMH of alcohol abuse, cirrhosis of the liver, hypertension, tobacco abuse who is transferred from [facility] for evaluation of acute cholecystitis. nabil was admitted on 08/07 and my first encounter with the patient was on 08/14 Assessment/Plan: Acute choledocholithiasis/acute cholecystitis secondary to biliary sludge MRCP reviewed GI evaluation appreciated Surgery evaluation appreciated s/p laproscopic cholecystectomy on 08/08/18 on zosyn pt has been advanced to regular diet by surgery leukocytosis persist, Abd US reported trace ascites- IR consulted for paracentesis If becomes febrile, will obtain blood cultures and broaden abx coverage Alcohol abuse/ possible alcoholic cirrhosis MELD score: 27 (bilirubin elevated secondary to choledocolithiaisis also) Maddrey score:65.1 ( bilirubin elevated secondary to choledocolithiaisis also) will closely monitor for alcohol withdrawals CIWA scores have remained 0 thus far Lorazepam as needed per CIWA scores Folate, Thiamine supplementation concern for DTs, will closely monitor transaminitis trending down AFP 2 and [place] abdomen without lesion needs to have AFP and RUQ Q6M, needs to have EGD and colonoscopy. GI follow up requested ( was not on steroids) hepatitis profile: nonreactive continue to closely monitor INR > 2 , hold off any anticoagulation at this time leukocytosis: developed leukocytosis on 08/10- will repeat CBC on zosyn Cdif negative UA negative hyponatremia: secondary to livercirrhosis and alcohol use Fluid restriction at 1.5 liters advised Salt tabs 1gram tid TSH 9, free T4 1.07 cortisol 17.8 rest of the management as per nephrology Goal Na correction is 6-8meq in 24 hours. Electrolyte abnormality Hypokalemia: K supplemented Hypophosphatemia: Phos supplemented Hypomagnesemia: Mg supplemented continue to monitor electrolytes and replace as needed Elevated ferritin level (?secondaryt acute infection rule out hemochromatosis) hematology evaluation appreciated hemochromatosis labs in process continue workup as per hematology elevated TSH, normal free T4. can be due to acute illness. for PCP to follow TFTS in 4 weeks and consider starting synthroid as per their discretion. HTN BP within acceptable range Will supplement another dose of albumin today given hypoalbuminemia contributing to hypotension closely monitor BP hold antihypertensive meds for SBP<100 Tobacco abuse smoking cessation counseling provided patient does not want to quit refused nicotine supplementation therapy at this time DVT ppx: scds. code status: Full code Care plan discussed with patient/RN fall aspiration seizure precaution - Time Spent with Patient Total time spent is greater than 50% in coordination of care (as documented) at patient's floor/unit and/or counseling patient: 25 - 35 minutes Plan of Care Discussed with: patient Internal Medicine: Result - Labs CBC & Chem 7: 08/14/18 05:53 08/14/18 05:53 Labs: Short CBC 08/14/18 Range/Units 05:53 WBC 14.9 H (4.3-11.1) K/mcL Hgb 11.1 L (12.9-16.9) g/dL Hct 31.0 L (37.5-50.1) % Plt Count 177 (140-400) K/mcL Neutrophils # 11.5 H (1.6-8.9) K/mcL BMP 08/13/18 08/13/18 08/14/18 15:12 20:35 05:53 Sodium 128 L 127 L 127 L Potassium 3.2 L 3.3 L 3.4 L Chloride 98 98 97 L Carbon Dioxide 22 L 22 L 21 L BUN 10 10 9 Creatinine 0.56 L 0.53 L 0.49 L Glucose 106 H 98 87 Calcium 7.3 L 7.3 L 7.4 L Liver Function 08/14/18 Range/Units 05:53 Total Bilirubin 5.8 H (0.3-1.0) mg/dL AST 112 H (13-39) Units/L ALT 55 H (7-52) Units/L Alkaline Phosphatase 141 H (34-104) Units/L Albumin 2.2 L (3.5-5.7) g/dL Urine 08/13/18 Range/Units 14:32 Urine Color Yellow (Yellow) Urine Clarity Clear (Clear) Urine pH 5.5 (5.0-8.0) pH Units Ur Specific Addison 1.016 (1.010-1.025) Urine Protein Negative (Neg-Trace) mg/dL Urine Glucose (UA) Normal (Normal) mg/dL - ABG Interpretation ABG results: PT/INR, D-dimer PT 23.9 Seconds (9.4-12.1) H 08/12/18 02:27 Consult Discharge Plan - Plan Instructions: Laparoscopic Cholecystectomy (DC) Additional Instructions: General Surgical Discharge Instructions 1. No pushing, pulling, or lifting greater than 15 lbs for 2-4 weeks (depending upon procedure). 2. You may shower beginning today, but no tub baths, soaking, or swimming for 2 weeks. 3. You may resume driving when you are off narcotics and are safe to react in a car. 4. Take ibuprofen every 8 hours for discomfort. If this does not relieve discomfort, you may take the as needed Percocet. Take narcotics as directed. Do not take more narcotics then directed and do not share your narcotics with any other person. Do not drink alcohol while on narcotics. 5. Take stool softeners (Colace) or a water based laxative (Miralax) while taking narcotics. You may hold for loose stools. 6. Report any fevers greater than 100.5F, increase abdominal discomfort, drainage that looks like pus, increased redness or pain at the surgical site, or any vomiting. 7. Report any pain in the calves, shortness of breath, or rapid heartbeat. 8. Follow-up in the office as directed. 9. If you were prescribed antibiotics, do not stop them without talking to your provider. [facility]errals: [facility] [Primary Care Provider[facility] - Prescriptions: Amoxicillin/Clavulanate [Augmentin] 875 mg PO BIDWM 7 Days #14 tablet Docusate [Colace] 100 mg PO DAILY #30 capsule Oxycodone HCl 5 mg PO Q6HR 7 Days #28 tablet
[2018-08-14 14:04] LABS: INR 2.4; Prothrombin Time 27.6 Seconds (9.4-12.1)
--- NOTE | 2018-08-14 15:59 | Event Note ---
Date of Encounter: 08/14/18 Time of Encounter: 13:45 Gi was called regarding DF 77 and MELD NA 27. Discussed with Dr Jo and he suggests repeating liver us tomorrow am and he would decide if pt needed steroids.
--- NOTE | 2018-08-14 17:51 | Nephrology Progress Note ---
Date of Encounter: 08/14/18 Time of Encounter: 12:00 - Assessment and Plan (1) Hyponatremia Current Visit: Yes Status: Acute (2) Cirrhosis Current Visit: Yes Status: Acute Qualifiers: Hepatic cirrhosis type: alcoholic cirrhosis Ascites presence: with ascites Qualified Code(s): K70.31 - Alcoholic cirrhosis of liver with ascites Objective - Vital Signs Vital signs: Vital Signs Temp Pulse Resp BP Pulse Ox 08/14/18 15:45 91 18 100/66 98 08/14/18 11:22 95 18 101/71 97 08/14/18 07:30 98.0 F 98 16 104/70 96 08/14/18 02:59 98.4 F 99 18 112/65 97 08/13/18 23:14 97.9 F 98 18 123/81 94 08/13/18 20:02 98.3 F 94 18 105/67 95 08/13/18 19:51 96 Intake and Output 08/14/18 08/14/18 08/14/18 07:59 15:59 23:59 Intake Total 100 / 200 100 / 200 Balance 100 / 200 100 / 200 Intake: IV Fluids 100 / 200 100 / 200 Zosyn 3.375 GM In 0.9 % Sodium 100 / 200 100 / 200 Chloride (Mini-Bag +) 100 ML @ 25 mls/hr IVPB Q8HR [facility] Rx#: [id number] Other: # Voids 1 Weight 90 kg Patient Weight 08/14/18 23:59 Weight 90 kg - Lab 08/14/18 05:53 08/14/18 05:53 Most recent lab results 08/14/18 05:53 Calcium 7.4 L Phosphorus 2.3 L Magnesium 1.5 L Consult Discharge Plan - Plan Instructions: Laparoscopic Cholecystectomy (DC) Additional Instructions: General Surgical Discharge Instructions 1. No pushing, pulling, or lifting greater than 15 lbs for 2-4 weeks (depending upon procedure). 2. You may shower beginning today, but no tub baths, soaking, or swimming for 2 weeks. 3. You may resume driving when you are off narcotics and are safe to react in a car. 4. Take ibuprofen every 8 hours for discomfort. If this does not relieve discomfort, you may take the as needed Percocet. Take narcotics as directed. Do not take more narcotics then directed and do not share your narcotics with any other person. Do not drink alcohol while on narcotics. 5. Take stool softeners (Colace) or a water based laxative (Miralax) while taking narcotics. You may hold for loose stools. 6. Report any fevers greater than 100.5F, increase abdominal discomfort, drainage that looks like pus, increased redness or pain at the surgical site, or any vomiting. 7. Report any pain in the calves, shortness of breath, or rapid heartbeat. 8. Follow-up in the office as directed. 9. If you were prescribed antibiotics, do not stop them without talking to your provider. [facility]errals: [facility] [Primary Care Provider] - Prescriptions: Amoxicillin/Clavulanate [Augmentin] 875 mg PO BIDWM 7 Days #14 tablet Docusate [Colace] 100 mg PO DAILY #30 capsule Oxycodone HCl 5 mg PO Q6HR 7 Days #28 tablet
[2018-08-14] MEDS: Menthol 9.1 MG LOZENGE PO PRN (21:28)
[2018-08-15 02:28] LABS: Hematocrit 31.2 % (37.5-50.1); Hemoglobin 11.3 g/dL (12.9-16.9); Mean Corpuscular HGB Conc 36.2 g/dL (31.6-35.5); Mean Corpuscular Hemoglobin 36.6 pg (28.0-33.3); Mean Platelet Volume 10.5 fL (9.4-12.4); Platelet Count 180 K/mcL (140-400); Red Blood Count 3.09 M/mcL (4.19-5.50); Red Cell Distribution Width 16.9 % (11.5-14.5)
[2018-08-15 02:35] LABS: VBG Ionized Calcium 1.06 mmol/L (1.15-1.35)
[2018-08-15 02:37] LABS: INR 2.5; Prothrombin Time 28.6 Seconds (9.4-12.1)
[2018-08-15 02:48] LABS: Alanine Aminotransferase 56 Units/L (7-52); Albumin/Globulin Ratio 0.7 (1.1-2.2); Alkaline Phosphatase 136 Units/L (34-104); Aspartate Amino Transferase 111 Units/L (13-39); BUN/Creatinine Ratio 19 (6-26); Bilirubin,Total 5.9 mg/dL (0.3-1.0); Blood Urea Nitrogen 10 mg/dL (8-23); Calcium 7.3 mg/dL (8.6-10.3); Carbon Dioxide 23 mEq/L (23-29); Chloride 99 mEq/L (98-107); Globulin 2.7 g/dL (2.4-3.5); Glucose 99 mg/dL (70-105); Magnesium 1.6 mg/dL (1.6-2.6); Osmolality,Calculated 257 (280-300); Phosphorous 2.5 mg/dL (2.7-4.5); Potassium 3.4 mEq/L (3.5-5.1); Sodium 124 mEq/L (136-145); Total Protein 4.7 g/dL (6.4-8.9); eGFR For African Americans > 60 (> 60); eGFR For Non-African Americans > 60 (> 60)
--- NOTE | 2018-08-15 03:23 | Event Note ---
Date of Encounter: 08/14/18 Time of Encounter: 20:38 Alerted by pts. nurse LELO Davis that Ultrasound had called for clarification regarding multiple ultrasound orders placed by multiple providers. There is currently in order for an abdominal ultrasound for ascites scheduled for 20:00 tonight, and abdominal ultrasound for hepatitis as per GI recommendations at 07:00 tomorrow, and a liver ultrasound for elevated LFTs at 07:00 tomorrow. Ultrasounds recommendation is to consolidate these into one tested 07:00 as opposed to repeating multiple tests. Nurse instructed to inform ultrasound to do 07:00 test and consolidate all studies into one. Pt. to be NPO at midnight and Ultrasound to do test at 07:00. Nurse instructed to continue monitoring the pt. closely, keep NPO, and confirm w/Ultrasound that the pts. testing will be done at 07:00.
[2018-08-15] MEDS ORDERED: Calcium Gluconate 1gm/50mL 1 GM/50 ML BAG IVPB ONE (07:19)
[2018-08-15] MEDS ORDERED: Tolvaptan 15 MG TABLET PO ONE (10:02)
[2018-08-15 10:07] LABS: C282Y Hemochromatosis Mutation NEGATIVE; H63D Hemochromatosis Mutation NEGATIVE; HFE Specimen Type WHOLE BLOOD; S65C Hemochromatosis Mutation NEGATIVE
[2018-08-15] MEDS: Menthol 9.1 MG LOZENGE PO PRN (10:09)
[2018-08-15] MEDS: Folic Acid 1 MG TABLET PO SCH (10:10)
[2018-08-15] MEDS: Thiamine (B-1) 100 MG TABLET PO SCH (10:10)
[2018-08-15] MEDS: Lisinopril 20 MG TABLET PO SCH (10:10)
[2018-08-15] MEDS: amLODIPine 5 MG TABLET PO SCH (10:10)
[2018-08-15] MEDS: Piperacillin/Tazobactam 3.375 GM in 0.9 % Sodium Chloride Mini Bag 100 ML IVPB SCH (10:10)
--- NOTE | 2018-08-15 10:30 | Internal Med Progress Note ---
Hospitalist Progress Note - Encounter Date of Encounter: 08/15/18 Time of Encounter: 08:00 - Subjective Interval History: patient was seen and examined at bedside. reports tthat he has a clear fluid draining from on eof arielle incsions from his lap sharon. denies fever, chills, abdominal pain, N/v/D. has had no chest pain or palpitations. - Exam Vitals: Temp Pulse Resp BP Pulse Ox 98.3 F 97 16 104/65 91 08/15/18 07:06 08/15/18 07:06 08/15/18 07:06 08/15/18 07:06 08/15/18 07:06 Exam: General: No acute distress, AAO x 3 HEENT: EOMI, NC/AT, + scleral icterus Respiratory: Clear to auscultate bilaterally, no wheezing, no rales Cardiovascular: Regular, Rate, Rhythm, No murmurs GI: Soft, Non tender, could not appreciate rebound, distended abd, normal bowel sounds, no guarding, no rebound tenderness, well healed lap procedure scars has seroues fluid draining from the epigastric incision from his Lap sharon Ext: No edema, no tenderness, positive pulses Neuro: AAO x 3, no focal deficits Rest of the clinical exam is noncontributory - Assessment and Plan (1) Leukocytosis Current Visit: Yes Status: Acute (2) Hepatic steatosis Current Visit: Yes Status: Acute (3) HTN (hypertension) Current Visit: Yes Status: Acute (4) Tobacco abuse Current Visit: Yes Status: Acute (5) Elevated TSH Current Visit: Yes Status: Acute (6) Alcohol use disorder Current Visit: Yes Status: Acute (7) Hypokalemia Current Visit: Yes Status: Acute (8) Hypophosphatemia Current Visit: Yes Status: Acute (9) Hypomagnesemia Current Visit: Yes Status: Acute (10) Acute cholecystitis due to biliary calculus Current Visit: Yes Status: Acute (11) Cirrhosis Current Visit: Yes Status: Acute (12) Common bile duct (CBD) obstruction Current Visit: Yes Status: Acute (13) Elevated ferritin Current Visit: Yes Status: Acute (14) Hyponatremia Current Visit: Yes Status: Acute - Summary of Assessment and Plan Summary of Assessment and Plan: Mr. Whitley is a 63 year old male with PMH of alcohol abuse, cirrhosis of the liver, hypertension, tobacco abuse who is transferred from [facility] for evaluation of acute cholecystitis. patient was admitted on 08/07 and my first encounter with the patient was on 08/14 Assessment/Plan: Acute choledocholithiasis/acute cholecystitis secondary to biliary sludge MRCP reviewed GI evaluation appreciated Surgery evaluation appreciated s/p laproscopic cholecystectomy on 08/08/18 was treated on zosyn ( surgery had recommended augmentin for 7 days post op - last day would have been on 08/15/18) - zosyn discontinued pt has been advanced to regular diet by surgery leukocytosis persists no signs of abscess on RUQ US- ID consulted Alcohol abuse/ possible alcoholic cirrhosis MELD score: 27 (bilirubin elevated secondary to choledocolithiaisis also) Maddrey score:65.1 ( bilirubin elevated secondary to choledocolithiaisis also) will closely monitor for alcohol withdrawals CIWA scores have remained 0 thus far Lorazepam as needed per CIWA scores Folate, Thiamine supplementation concern for DTs, will closely monitor transaminitis trending down AFP 2 and MRI abdomen without lesion needs to have AFP and RUQ Q6M, needs to have EGD and colonoscopy. GI follow up requested ( was not on steroids) - will follow their recommendations on possibly starting steroids ( RUQ obtained on 08/15) hepatitis profile: nonreactive continue to closely monitor INR > 2 , hold off any anticoagulation at this time persistent leukocytosis: developed leukocytosis on 08/10- will repeat CBC was treated with zosyn until 625 has small ascites - on ceftriaxone now for SBP prophylaxis will obtain blood cx, UA and CXR Cdif negative UA negative on 08/13 Abd US reported trace ascites- IR consulted for paracentesis hyponatremia: secondary to livercirrhosis and alcohol use Fluid restriction at 1 liter advised Salt tabs 1gram tid TSH 9, free T4 1.07 cortisol 17.8 rest of the management as per nephrology Goal Na correction is 6-8meq in 24 hours. nephrology on board and tolvaptan was ordered - will defer management to nephrology Electrolyte abnormality Hypokalemia: K supplemented Hypophosphatemia: Phos supplemented Hypomagnesemia: Mg supplemented hypocalcemia: replaced - vitamin D pending continue to monitor electrolytes and replace as needed Elevated ferritin level (?secondary to acute infection rule out hemochromatosis) hematology evaluation appreciated hemochromatosis labs in process continue workup as per hematology elevated TSH, normal free T4. can be due to acute illness. for PCP to follow TFTS in 4 weeks and consider starting synthroid as per their discretion. HTN BP within acceptable range Will supplement another dose of albumin today given hypoalbuminemia contributing to hypotension closely monitor BP hold antihypertensive meds for SBP<100 Tobacco abuse smoking cessation counseling provided patient does not want to quit refused nicotine supplementation therapy at this time coagulopathy: most likley secondary to liver disease and poor nutrition from alcohol use will give one dose of PO vitamin K type and screen ordered in anticipation for possible paracentesis by IR DVT ppx: scds. code status: Full code Care plan discussed with patient/RN fall aspiration seizure precaution - Time Spent with Patient Total time spent is greater than 50% in coordination of care (as documented) at patient's floor/unit and/or counseling patient: 25 - 35 minutes Internal Medicine: Result - Labs CBC & Chem 7: 08/15/18 02:15 08/15/18 02:15 Labs: Short CBC 08/15/18 Range/Units 02:15 WBC 15.0 H (4.3-11.1) K/mcL Hgb 11.3 L (12.9-16.9) g/dL Hct 31.2 L (37.5-50.1) % Plt Count 180 (140-400) K/mcL BMP 08/14/18 08/15/18 05:53 02:15 Sodium 127 L 124 L Potassium 3.4 L 3.4 L Chloride 97 L 99 Carbon Dioxide 21 L 23 BUN 9 10 Creatinine 0.49 L 0.54 L Glucose 87 99 Calcium 7.4 L 7.3 L Liver Function 08/14/18 08/15/18 Range/Units 05:53 02:15 Total Bilirubin 5.8 H 5.9 H (0.3-1.0) mg/dL AST 112 H 111 H (13-39) Units/L ALT 55 H 56 H (7-52) Units/L Alkaline Phosphatase 141 H 136 H (34-104) Units/L Albumin 2.2 L 2.0 L (3.5-5.7) g/dL - ABG Interpretation ABG results: PT/INR, D-dimer PT 28.6 Seconds (9.4-12.1) H 08/15/18 02:15 - Impressions Impressions Abdomen Ultrasound 08/15/18 07:30 IMPRESSION: 1. Hepatic steatosis with small volume of ascites. 2. Status post cholecystectomy. D/ / Klaus Ho MD / Klaus Ho MD Interpreting Provider: Klaus Ho MD Consult Discharge Plan - Plan Instructions: Laparoscopic Cholecystectomy (DC) Additional Instructions: General Surgical Discharge Instructions 1. No pushing, pulling, or lifting greater than 15 lbs for 2-4 weeks (depending upon procedure). 2. You may shower beginning today, but no tub baths, soaking, or swimming for 2 weeks. 3. You may resume driving when you are off narcotics and are safe to react in a car. 4. Take ibuprofen every 8 hours for discomfort. If this does not relieve d iscomfort, you may take the as needed Percocet. Take narcotics as directed. Do not take more narcotics then directed and do not share your narcotics with any other person. Do not drink alcohol while on narcotics. 5. Take stool softeners (Colace) or a water based laxative (Miralax) while taking narcotics. You may hold for loose stools. 6. Report any fevers greater than 100.5F, increase abdominal discomfort, drainage that looks like pus, increased redness or pain at the surgical site, or any vomiting. 7. Report any pain in the calves, shortness of breath, or rapid heartbeat. 8. Follow-up in the office as directed. 9. If you were prescribed antibiotics, do not stop them without talking to your provider. [facility]Primary Care Provider[facility] - Prescriptions: Amoxicillin/Clavulanate [Augmentin] 875 mg PO BIDWM 7 Days #14 tablet Docusate [Colace] 100 mg PO DAILY #30 capsule Oxycodone HCl 5 mg PO Q6HR 7 Days #28 tablet (1) Leukocytosis Qualifiers: Leukocytosis type: unspecified Qualified Code(s): D72.829 - Elevated white blood cell count, unspecified (11) Cirrhosis Qualifiers: Hepatic cirrhosis type: alcoholic cirrhosis Ascites presence: with ascites Qualified Code(s): K70.31 - Alcoholic cirrhosis of liver with ascites
[2018-08-15] MEDS: cefTRIAXone 2,000 MG in 0.9 % Sodium Chloride Mini Bag 100 ML IVPB SCH (11:34)
--- NOTE | 2018-08-15 11:46 | Event Note ---
<Charlette Fair - Last Filed: 08/15/18 11:43> Date of Encounter: 08/15/18 Time of Encounter: 11:40 Liver us reviewed by Dr Jo, small amount of ascites, no cbd obstruction or dilation. Will start prednisone for alcoholic hepatitis with elevated Meld Na and DF. <Desmond Jo - Last Filed: 08/16/18 05:19> Date of Encounter: 08/15/18 Agree, start Prednisone and will make further recommendations as we follow him. I have personally performed a face to face evaluation on this patient. I have reviewed and agree with the care plan. History and Exam by me shows:
[2018-08-15 12:30] LABS: Bilirubin,Urine Moderate (Negative); Blood,Urine Negative (Negative); Clarity,Urine Cloudy (Clear); Glucose,Urine (UA) Normal (Normal); Ketones,Urine Trace mg/dL (Negative); Leukocyte Esterase,Urine Small (Negative); Nitrite,Urine Positive (Negative); PH,Urine 5.5 pH Units (5.0-8.0); Protein,Urine Negative (Neg-Trace); Specific Gravity,Urine > 1.030 (1.010-1.025); Urobilinogen,Urine Normal (Normal)
[2018-08-15 12:32] LABS: Bacteria,Urine None Seen per hpf (None-Few); Hyaline Casts,Urine Few per lpf (None-Few); RBC,Urine 0-3 per hpf (0-3); Squamous Epithelial Cell,Urine Many per lpf (None-Few)
--- NOTE | 2018-08-15 12:39 | Oncology Inp Progress Note ---
Date of Encounter: 08/15/18 Time of Encounter: 12:30 (1) Cirrhosis Current Visit: Yes Status: Acute Assessment and plan: He has alcoholic cirrhosis. This is the etiology of his elevated ferritin and iron studies. MRI imaging does confirm iron overload involving the spleen and liver. Although he has a negative hereditary hemochromatosis panel, outpatient phlebotomy would be beneficial. Recovering from cholecystectomy uneventfully and LFTs improving. He will likely benefit from therapeutic phlebotomy if found to have recurrent hemochromatosis. He has stopped drinking alcohol approximately 2 weeks ago. He will be moving to [place]. We would recommend establishing care at [facility] Oncology at time of discharge for consideration of phlebotomy. We will otherwise sign off. Qualifiers: Hepatic cirrhosis type: alcoholic cirrhosis Ascites presence: with ascites Qualified Code(s): K70.31 - Alcoholic cirrhosis of liver with ascites (2) Elevated ferritin Current Visit: Yes Status: Acute Assessment and plan: As above. Oncology: Subj Interval history: He is sitting up in bed eating lunch alongside his mother. He has had some oozing from one of his upper laparoscopic wounds. Nursing is aware. Denies any fever or chills. Minimal abdominal discomfort from surgery. No nausea or vomiting. Energy is robust. He is anxious to be discharged from the hospital. They are looking into alcohol rehabilitation stay at the [facility]. In the meantime, he will be returning to the care of his brother in [place]. - Constitutional General appearance: cooperative, no acute distress, obese - Head Head exam: Present: atraumatic, normal inspection, normocephalic - Eye Eye exam: Present: conjunctival injection, normal appearance, scleral icterus, conjuntiva pink - ENT ENT exam: Present: mucous membranes moist, normal oropharynx - Neck Neck exam: Present: full ROM, normal inspection - Respiratory Respiratory exam: Present: decreased breath sounds - Cardiovascular Cardiovascular exam: Present: RRR - GI/Abdominal GI/Abdominal exam: Present: distended, soft Additional comments: Serous drainage from his upper abdominal wound. Wounds appear clean dry and intact - Extremities Exam Extremities exam: Present: normal inspection - Neurological Exam Neurological exam: Present: alert, CN II-XII intact, oriented X3, no focal deficits Oncology: Obj Data - Labs CBC & Chem 7: 08/15/18 02:15 08/15/18 02:15 Labs: Hereditary hemochromatosis panel negative Consult Discharge Plan - Plan Instructions: Laparoscopic Cholecystectomy (DC) Additional Instructions: General Surgical Discharge Instructions 1. No pushing, pulling, or lifting greater than 15 lbs for 2-4 weeks (depending upon procedure). 2. You may shower beginning today, but no tub baths, soaking, or swimming for 2 weeks. 3. You may resume driving when you are off narcotics and are safe to react in a car. 4. Take ibuprofen every 8 hours for discomfort. If this does not relieve discomfort, you may take the as needed Percocet. Take narcotics as directed. Do not take more narcotics then directed and do not share your narcotics with any other person. Do not drink alcohol while on narcotics. 5. Take stool softeners (Colace) or a water based laxative (Miralax) while taki ng narcotics. You may hold for loose stools. 6. Report any fevers greater than 100.5F, increase abdominal discomfort, drainage that looks like pus, increased redness or pain at the surgical site, or any vomiting. 7. Report any pain in the calves, shortness of breath, or rapid heartbeat. 8. Follow-up in the office as directed. 9. If you were prescribed antibiotics, do not stop them without talking to your provider. [facility]errals: [facility] [Primary Care Provider] - Prescriptions: Oxycodone HCl 5 mg PO Q6HR 7 Days #28 tablet Amoxicillin/Clavulanate [Augmentin] 875 mg PO BIDWM 7 Days #14 tablet Docusate [Colace] 100 mg PO DAILY #30 capsule Inpatient Charges Provider: Dr. Janet Oneal Follow up - Inpatient: [id number]
[2018-08-15 12:43] LABS: Color,Urine Dark Yellow (Yellow)
[2018-08-15] MEDS: predniSONE 20 MG TABLET PO SCH (13:28)
--- NOTE | 2018-08-15 14:21 | Event Note ---
Date of Encounter: 08/15/18 Time of Encounter: 14:19 Surgery was called to evaluate drainage per abdomen. The surgical incisions are without s/s concerning for infection. There is clear drainage noted on his gown, but none on the abdomen at that time of my assessment. His abdomen is distended and dull. He does have pitting edema on the right upper quadrant, yellow sclera, and is jaundice. His findings are consistent with ascites/peritoneal fluid. No cultures are needed. He may cover the areas as needed. Management per primary team.
--- NOTE | 2018-08-15 17:22 | Infectious Disease Consult ---
Infectious Disease-Consult - Encounter Date/Time Date of Encounter: 08/15/18 Time of Encounter: 17:17 - Data of Consult Patient: new to practice Reason for consult: "persistent leukocytosis, s/p cholecystectomy for acute cholangitis, no bcx were sent on admission." Consult date: 08/15/18 Requesting Physician: Denise Masters MD Primary Care Provider: PCP [place] - [facility] HPI: Patient is a 63-year-old gentleman who presented to [facility] on 08/07/2018 as a transfer from the [facility] for acute cholecystitis. We are consult on 08/15/2018 for persistent leukocytosis. Patient is a 63-year-old gentleman with past medical history significant for hypertension and chronic liver disease due to EtOH abuse who apparently lives in [place] but decided to come to the [facility] her and [place] because he thought things will move faster. Patient really is not the best historian. Patient apparently was having abdominal pain for a few days prior to admission. He does know that he has liver cirrhosis. Patient denied any fevers or chills. At the [facility] CT abdomen and pelvis revealed diffuse increased hepatic echogenicity with a mildly nodular hepatic contour and a large amount of the vented medium level echogenicity in the gallbladder likely representing sludge. There was also dilation of the common bile duct up to 9 mm. ERCP/MRCP was recommended. Patient was transferred to [facility] for further evaluation. On admission, patient was afebrile, tachycardic without tachypnea. Presenting labs revealed a WBC of 11.5 with normal differential. Chemistry revealed sodium 1:30 potassium 2.9 BUN 16 creatinine 0.6 bilirubin 8.4 AST 182 ALT 74 alkaline phosphatase 152 and an INR of 2.2. MRCP on 08/07/2018 revealed gallbladder without definite gallbladder wall thickening probable gallbladder sludge or sent demonstrated. On 08/08/2018 patient was taken to the OR for laparoscopic cholecystectomy with intraoperative cholangiogram. Pathology Report reviewed. Patient was also noted to have elevated ferritin and it was concern for hemachromatosis. Hematology was consulted. Patient had an MRI of the abdomen 08/11/2018 which was read as "mild to moderate hepatic steatosis with possible cirrhosis. No liver lesions seen. Evidence of iron deposits addition, greater in the spleen and the liver, compatible with secondary hemosiderosis." Currently patient is laying in bed. Mother at bedside. Review of systems negative for headache, runny nose, sore throat, earache, visual changes, no chest pain or shortness of breath no cough no sputum production or hemoptysis. Patient denies any nausea or vomiting no diarrhea no constipation. Patient's states abdominal pain only when people press on it. No urinary symptoms. No rash. No joint effusion. No joint pain. No muscle ache. - ROS Review of Systems: 10 point review of systems done, negative other for what is mentioned in history of present illness - Results CBC & Chem 7: 08/15/18 02:15 08/15/18 02:15 - Exam Vitals: Temp Pulse Resp BP Pulse Ox 98.1 F 93 16 102/63 96 08/15/18 11:18 08/15/18 16:58 08/15/18 16:58 08/15/18 16:58 08/15/18 16:58 Exam: GENERAL: Laying in bed, appears comfortable. HEAD: Normocephalic atraumatic EYES: PERRLA, EOMI, no conjunctival hemorrhage, sclera anicteric ENT: Mucous membranes moist, no oral thrush. Patient wears upper and lower dentures NECK: Supple. No meningeal signs. No masses LUNGS: Chest expanding symmetrically. Lungs sounds audible both lung valentine. No wheezing, no rhonchi CV: RRR, S1S2, ABDOMEN: Soft, mildly distended, surgical incisions noted appears clear with no drainage. Hypoactive bowel sounds. No peritoneal signs. No rebound no guarding EXTREMITY: Adequate perfusion. No joint effusion. SKIN: Normal color. No rash. NEURO: Awake alert oriented 3. No obvious focal deficit PSYCH: Calm and appropriate. No agitation. Amlodipine Besylate/Benazepril [Lotrel 10-20 mg Capsule] 1 each PO DAILY 08/07/18 [History] Fluticasone Propionate Nasal [Flonase] 50 mcg NS DAILY PRN 08/07/18 [History] Folic Acid 1 mg PO DAILY 08/07/18 [History] Thiamine (B-1) [Vitamin B-1] 100 mg PO DAILY 08/07/18 [History] Amoxicillin/Clavulanate [Augmentin] 875 mg PO BIDWM 7 Days #14 tablet 08/09/18 [Rx] Docusate [Colace] 100 mg PO DAILY #30 capsule 08/09/18 [Rx] Oxycodone HCl 5 mg PO Q6HR 7 Days #28 tablet 08/09/18 [Rx] Allergy/AdvReac Type Severity Reaction Status Date / Time No Known Allergies Allergy Verified 08/07/18 14:59 - Assessment and Plan (1) Leukocytosis Current Visit: Yes Status: Acute Etiology not clear. Review of system and physical exam not concerning for an infectious etiology I believe this is all reactive from everything else going on but infectious etiology still on the differential Consider doing a peripheral smear and consider pro calcitonin level Patient is on Rocephin currently and is also on steroids which might be a confounding factor. I will believe that steroids have anything to do with it since it was started already after the patient started having leukocytosis Patient does not appear toxic We will continue to follow will check esr, crp, procalcitonin, peripheral smear, lipase and amylase continue rocephin follow up on blood cultures Qualifiers: Leukocytosis type: unspecified Qualified Code(s): D72.829 - Elevated white blood cell count, unspecified SNOMED Code(s): 885698470, 893675040 (2) Acute cholecystitis due to biliary calculus Current Visit: Yes Status: Acute Status post laparoscopic cholecystectomy 08/08/2018 Repeat imaging including MRI and ultrasound of the abdomen revealed no fluid collection or abscess SNOMED Code(s): 87740541146149 (3) Cirrhosis Current Visit: Yes Status: Acute MELD 27 Likely secondary to EtOH use. I am not sure if the patient also has hemochromatosis GI following Hepatitis B and C negative Qualifiers: Hepatic cirrhosis type: alcoholic cirrhosis Ascites presence: with ascites Qualified Code(s): K70.31 - Alcoholic cirrhosis of liver with ascites SNOMED Code(s): 77746001 (4) Elevated ferritin Current Visit: Yes Status: Acute Being worked up by hematology/oncology MRI reveals the position off iron more in the spleen than the liver Ferritin over 1300 SNOMED Code(s): 994865402, [id number] (5) Alcohol use disorder Current Visit: Yes Status: Acute SNOMED Code(s): 2187884 Past Med Surg Social Fam HX - Past Medical History Medical history: hypertension, liver disease Psychiatric history: no psych history - Social History Smoking Status: Current every day smoker Smokeless Tobacco Status: No Alcohol use: occasionally, heavy (Daily drinker/Vodka. Recently checked into [facility] for EtOH Detox but transferred here for surgical Mgmt. Last drink Tuesday08/06/2018.) Drug use: none Consult Discharge Plan - Plan Instructions: Laparoscopic Cholecystectomy (DC) Additional Instructions: General Surgical Discharge Instructions 1. No pushing, pulling, or lifting greater than 15 lbs for 2-4 weeks (depending upon procedure). 2. You may shower beginning today, but no tub baths, soaking, or swimming for 2 weeks. 3. You may resume driving when you are off narcotics and are safe to react in a car. 4. Take ibuprofen every 8 hours for discomfort. If this does not relieve discomfort, you may take the as needed Percocet. Take narcotics as directed. Do not take more narcotics then directed and do not share your narcotics with any other person. Do not drink alcohol while on narcotics. 5. Take stool softeners (Colace) or a water based laxative (Miralax) while taking narcotics. You may hold for loose stools. 6. Report any fevers greater than 100.5F, increase abdominal discomfort, drainage that looks like pus, increased redness or pain at the surgical site, or any vomiting. 7. Report any pain in the calves, shortness of breath, or rapid heartbeat. 8. Follow-up in the office as directed. 9. If you were prescribed antibiotics, do not stop them without talking to your provider. [facility]errals: [facility] [Primary Care Provider] - Prescriptions: Amoxicillin/Clavulanate [Augmentin] 875 mg PO BIDWM 7 Days #14 tablet Docusate [Colace] 100 mg PO DAILY #30 capsule Oxycodone HCl 5 mg PO Q6HR 7 Days #28 tablet
--- NOTE | 2018-08-15 23:17 | Nephrology Progress Note ---
Date of Encounter: 08/15/18 Time of Encounter: 12:00 - Assessment and Plan (1) Hyponatremia Current Visit: Yes Status: Acute Sodium worse again at 124, will try tolvaptan today Continue fluid restriction Urine osm elevated and serum osmolality low and urine sodium high all consistent with SIADH Uric acid low, TSH elevated and cortisol elevated Continue salt tabs 1gram tid (2) Cirrhosis Current Visit: Yes Status: Acute Qualifiers: Hepatic cirrhosis type: alcoholic cirrhosis Ascites presence: with ascites Qualified Code(s): K70.31 - Alcoholic cirrhosis of liver with ascites Subjective Interval history: Pt seen and examined Objective - Vital Signs Vital signs: Vital Signs Temp Pulse Resp BP Pulse Ox 08/15/18 21:33 98.1 F 124 14 130/88 91 08/15/18 20:27 96 08/15/18 16:58 93 16 102/63 96 08/15/18 11:18 98.1 F 100 16 119/61 94 08/15/18 07:06 98.3 F 97 16 104/65 91 08/15/18 04:53 98 F 92 14 103/67 95 08/15/18 00:06 98.1 F 96 14 118/74 94 Intake and Output 08/15/18 08/15/18 08/15/18 07:59 15:59 23:59 Intake Total 100 / 2044 470 / 2044 1474 / 2044 Output Total 200 / 200 Balance -100 / 1844 470 / 1844 1474 / 1844 Intake: IV Fluids 100 / 1444 470 / 1444 874 / 1444 Calcium Gluconate 1gm/50mL 1 gm 50 / 50 In 50 ml @ 100 mls/hr IVPB ONCE ONE Rx#:[id number] Magnesium Sulfate 2 GM In 0.9 % 208 / 312 104 / 312 Sodium Chloride 100 ML @ 104 mls/hr IVPB ONCE ONE Rx#: [id number] Zosyn 3.375 GM In 0.9 % Sodium 100 / 200 100 / 200 Chloride (Mini-Bag +) 100 ML @ 25 mls/hr IVPB Q8HR [facility] Rx#: [id number] KCl 20 MEQ Xylocaine 2 ML In 262 / 262 Dextrose 5% 250 ML @ 131 mls/hr IVPB ONCE ONE Rx#:[id number] Sodium Phosphate 30 MMOL In 0.9 520 / 520 % Sodium Chloride 250 ML @ 42 mls/hr IVPB ONCE ONE Rx#: [id number] Rocephin 2,000 MG In 0.9 % 100 / 100 Sodium Chloride (Mini-Bag +) 100 ML @ 200 mls/hr IVPB Q24H [facility] Rx#:[id number] Oral 0 / 600 600 / 600 Output: Urine 200 / 200 Other: Stool Size Moderate Moderate Stool Consistency formed soft Stool Characteristics Normal for Patient Stool Color Brown Brown # Voids 2 # Bowel Movements 1 1 Weight 93.6 kg Patient Weight 08/15/18 23:59 Weight 93.6 kg - Lab 08/15/18 02:15 08/15/18 02:15 Consult Discharge Plan - Plan Instructions: Laparoscopic Cholecystectomy (DC) Additional Instructions: General Surgical Discharge Instructions 1. No pushing, pulling, or lifting greater than 15 lbs for 2-4 weeks (depending upon procedure). 2. You may shower beginning today, but no tub baths, soaking, or swimming for 2 weeks. 3. You may resume driving when you are off narcotics and are safe to react in a car. 4. Take ibuprofen every 8 hours for discomfort. If this does not relieve discomfort, you may take the as needed Percocet. Take narcotics as directed. Do not take more narcotics then directed and do not share your narcotics with any other person. Do not drink alcohol while on narcotics. 5. Take stool softeners (Colace) or a water based laxative (Miralax) while taking narcotics. You may hold for loose stools. 6. Report any fevers greater than 100.5F, increase abdominal discomfort, drainage that looks like pus, increased redness or pain at the surgical site, or any vomiting. 7. Report any pain in the calves, shortness of breath, or rapid heartbeat. 8. Follow-up in the office as directed. 9. If you were prescribed antibiotics, do not stop them without talking to your provider. [facility] Care Provider[facility] - Prescriptions: Amoxicillin/Clavulanate [Augmentin] 875 mg PO BIDWM 7 Days #14 tablet Docusate [Colace] 100 mg PO DAILY #30 capsule Oxycodone HCl 5 mg PO Q6HR 7 Days #28 tablet
[2018-08-16] MEDS: Menthol 9.1 MG LOZENGE PO PRN (03:30)
[2018-08-16 06:01] LABS: Basophils % 0.1 %; Eosinophils % 0.1 %; Hematocrit 32.1 % (37.5-50.1); Hemoglobin 11.5 g/dL (12.9-16.9); Immature Granulocytes % 0.6 % (0-4); Lymphocytes # 1.2 K/mcL (0.6-4.6); Lymphocytes % 7.4 %; Mean Corpuscular HGB Conc 35.8 g/dL (31.6-35.5); Mean Corpuscular Volume 103.2 fL (83.0-100.0); Mean Platelet Volume 10.3 fL (9.4-12.4); Monocytes # 1.4 K/mcL (0.0-1.3); Monocytes % 8.6 %; Neutrophils # 13.1 K/mcL (1.6-8.9); Platelet Count 199 K/mcL (140-400); Red Blood Count 3.11 M/mcL (4.19-5.50); Red Cell Distribution Width 17.1 % (11.5-14.5); Segmented Neutrophils % 83.2 %; White Blood Count 15.7 K/mcL (4.3-11.1)
[2018-08-16 06:47] LABS: Alanine Aminotransferase 63 Units/L (7-52); Albumin 2.2 g/dL (3.5-5.7); Albumin/Globulin Ratio 0.8 (1.1-2.2); Alkaline Phosphatase 144 Units/L (34-104); Amylase 38 Units/L (29-103); Aspartate Amino Transferase 108 Units/L (13-39); BUN/Creatinine Ratio 14 (6-26); Bilirubin,Total 5.5 mg/dL (0.3-1.0); Blood Urea Nitrogen 8 mg/dL (8-23); Calcium 7.9 mg/dL (8.6-10.3); Carbon Dioxide 23 mEq/L (23-29); Chloride 101 mEq/L (98-107); Globulin 2.9 g/dL (2.4-3.5); Glucose 126 mg/dL (70-105); Lipase 30 Units/L (11-82); Magnesium 1.8 mg/dL (1.6-2.6); Osmolality,Calculated 274 (280-300); Phosphorous 2.3 mg/dL (2.7-4.5); Potassium 4.3 mEq/L (3.5-5.1); Sodium 132 mEq/L (136-145); Total Protein 5.1 g/dL (6.4-8.9); eGFR For African Americans > 60 (> 60); eGFR For Non-African Americans > 60 (> 60)
[2018-08-16] MEDS ORDERED: Magnesium Oxide 400 MG TABLET PO SCH (09:00)
[2018-08-16] MEDS: Thiamine (B-1) 100 MG TABLET PO SCH (09:52)
[2018-08-16] MEDS: Lisinopril 20 MG TABLET PO SCH (09:52)
[2018-08-16] MEDS: predniSONE 20 MG TABLET PO SCH (09:52)
[2018-08-16] MEDS: Folic Acid 1 MG TABLET PO SCH (09:53)
[2018-08-16] MEDS: cefTRIAXone 2,000 MG in 0.9 % Sodium Chloride Mini Bag 100 ML IVPB SCH (09:54)
--- NOTE | 2018-08-16 10:10 | Infectious Disease Progress No ---
ID Progress Note Date of Encounter: 08/16/18 Time of Encounter: 09:55 - Subjective Subjective: Patient seen and examined. No acute events noted overnight. Patient states overall he feels well. Denies fevers, chills, or rigors. Denies congestion, earache, or sore throat. Denies chest pain or shortness of breath. Reports a dry sparse cough. Denies nausea, vomiting, or constipation. Reports 3 loose stools per day. Reports some upper abdominal pain related to his recent s urgical procedure. Denies urinary complaints. Denies oral thrush or skin rashes. - Objective CBC & Chem 7: 08/16/18 05:49 08/16/18 05:49 - Exam Vitals: Temp Pulse Resp BP Pulse Ox 97.7 F 105 18 107/70 97 08/16/18 06:55 08/16/18 06:55 08/16/18 06:55 08/16/18 06:55 08/16/18 05:32 Exam: Head: Atraumatic, normal inspection, normocephalic. Eye: EOMI, PERRLA, scleral icterus noted. ENT: Mucous membranes moist. No odontogenic infection noted. Neck: Normal inspection, no meningismus. Respiratory: Clear to auscultation. No rales, respiratory distress, rhonchi, or wheezes noted. Cardiovascular: Regular rhythm, tachycardic. S1 and S2 audible. No murmurs, rubs, or gallops. GI: Soft, distended, normal bowel sounds. Tenderness noted with palpation of the right upper and right lower quadrants. Surgical stab incisions 3 with dressing intact 2. Serous drainage noted on the dressings. No surrounding erythema or warmth noted. Extremities: No joint swelling or tenderness noted. 2+ pitting edema noted to the bilateral lower legs. Neurological: Alert, oriented 3, no focal deficits. Psychiatric: normal affect, normal mood. Skin: Dry, intact, warm. Jaundiced. No rashes. - Assessment and Plan (1) Leukocytosis Current Visit: Yes Status: Acute Etiology: Unclear. Review of systems and physical exam are concerning for infectious etiology. The patient is currently on steroids which could be contributing to the leukocytosis, however, the steroids were initiated after the patient had artery developed leukocytosis. Clinically, the patient does not appear toxic. Blood cultures drawn 08/15/18 are pending 2 sets. Procalcitonin negative. Peripheral smear without toxic granules or Dohle bodies. The patient does continue to have some intermittent tachycardia, but no other sepsis criteria noted. Unlikely infectious etiology. Qualifiers: Leukocytosis type: unspecified Qualified Code(s): D72.829 - Elevated white blood cell count, unspecified SNOMED Code(s): 165408807, 222852329 (2) Acute cholecystitis due to biliary calculus Current Visit: Yes Status: Acute Status post laparoscopic cholecystectomy 08/08/2018. Repeat imaging including MRI and ultrasound of the abdomen revealed no fluid collection or abscess. SNOMED Code(s): 90298956418959 (3) Elevated ferritin Current Visit: Yes Status: Acute Being worked up by hematology/oncology. MRI reveals the position off iron more in the spleen than the liver. Ferritin over 1300. SNOMED Code(s): 355037932, 869291509 (4) Hyponatremia Current Visit: Yes Status: Acute Per nephrology, clinical picture consistent with SIADH. Nephrology consult and following. Improved. SNOMED Code(s): 44068014 (5) HTN (hypertension) Current Visit: Yes Status: Chronic SNOMED Code(s): 54100433 (6) Tobacco abuse Current Visit: Yes Status: Acute SNOMED Code(s): 475512256 (7) Alcohol use disorder Current Visit: Yes Status: Acute SNOMED Code(s): 6744253 (8) Cirrhosis Current Visit: Yes Status: Acute MELD 27. Likely secondary to EtOH use. I am not sure if the patient also has hemochromatosis. GI following. Hepatitis B and C negative. Qualifiers: Hepatic cirrhosis type: alcoholic cirrhosis Ascites presence: with ascites Qualified Code(s): K70.31 - Alcoholic cirrhosis of liver with ascites SNOMED Code(s): 86902242 - Recommendations Recommendations: Await blood cultures to finalize. Await additional recommendations from GI. Await further recommendations from hematology/oncology. Hyponatremia management per the nephrology team. Discontinue Rocephin as it does not appear that the patient's leukocytosis is related to infection. Duration of treatment depends on the clinical picture. Monitor renal function and dose adjust medications. No further recommendations from the ID team. We will sign off. Please re-consult if needed. Consult Discharge Plan - Plan Instructions: Laparoscopic Cholecystectomy (DC) Additional Instructions: General Surgical Discharge Instructions 1. No pushing, pulling, or lifting greater than 15 lbs for 2-4 weeks (depending upon procedure). 2. You may shower beginning today, but no tub baths, soaking, or swimming for 2 weeks. 3. You may resume driving when you are off narcotics and are safe to react in a car. 4. Take ibuprofen every 8 hours for discomfort. If this does not relieve discomfort, you may take the as needed Percocet. Take narcotics as directed. Do not take more narcotics then directed and do not share your narcotics with any other person. Do not drink alcohol while on narcotics. 5. Take stool softeners (Colace) or a water based laxative (Miralax) while taking narcotics. You may hold for loose stools. 6. Report any fevers greater than 100.5F, increase abdominal discomfort, drainage that looks like pus, increased redness or pain at the surgical site, or any vomiting. 7. Report any pain in the calves, shortness of breath, or rapid heartbeat. 8. Follow-up in the office as directed. 9. If you were prescribed antibiotics, do not stop them without talking to your provider. [facility]errals: [facility]Primary Care Provider[facility] - Prescriptions: Docusate [Colace] 100 mg PO DAILY #30 capsule
[2018-08-16] MEDS ORDERED: *HR* Phytonadione 5 MG TABLET PO ONE (11:30)
[2018-08-16] MEDS ORDERED: MethylPREDNISolone 40 MG/ML VIAL IVP SCH (11:30)
--- NOTE | 2018-08-16 11:31 | Internal Med Progress Note ---
Hospitalist Progress Note - Encounter Date of Encounter: 08/16/18 Time of Encounter: 08:00 - Subjective Interval History: patient was seen and examined at bedside. all questions answered. has had no fever or chills, denies nausea or vomiting did have 3 episodes of loose stool yesterday. Denies abdominal pain, diaphoresis, chest pain or shortness of lexii th. tolerating by mouth diet. denies pain - Exam Vitals: Temp Pulse Resp BP Pulse Ox 97.7 F 105 18 107/70 97 08/16/18 06:55 08/16/18 06:55 08/16/18 06:55 08/16/18 06:55 08/16/18 05:32 Exam: General: No acute distress, AAO x 3 HEENT: EOMI, NC/AT, + scleral icterus Respiratory: Clear to auscultate bilaterally, no wheezing, no rales Cardiovascular: Regular, Rate, Rhythm, No murmurs GI: Soft, Non tender, could not appreciate rebound, distended abd, normal bowel sounds, no guarding, no rebound tenderness, well healed lap procedure scars has seroues fluid draining from the epigastric incision from his Lap sharon Ext: No edema, no tenderness, positive pulses Neuro: AAO x 3, no focal deficits Rest of the clinical exam is noncontributory - Assessment and Plan (1) Leukocytosis Current Visit: Yes Status: Acute (2) Hepatic steatosis Current Visit: Yes Status: Acute (3) HTN (hypertension) Current Visit: Yes Status: Chronic (4) Tobacco abuse Current Visit: Yes Status: Acute (5) Elevated TSH Current Visit: Yes Status: Acute (6) Alcohol use disorder Current Visit: Yes Status: Acute (7) Hypokalemia Current Visit: Yes Status: Acute (8) Hypophosphatemia Current Visit: Yes Status: Acute (9) Hypomagnesemia Current Visit: Yes Status: Acute (10) Acute cholecystitis due to biliary calculus Current Visit: Yes Status: Acute (11) Cirrhosis Current Visit: Yes Status: Acute (12) Common bile duct (CBD) obstruction Current Visit: Yes Status: Acute (13) Elevated ferritin Current Visit: Yes Status: Acute (14) Hyponatremia Current Visit: Yes Status: Acute - Summary of Assessment and Plan Summary of Assessment and Plan: Mr. Whitley is a 63 year old male with PMH of alcohol abuse, cirrhosis of the liver, hypertension, tobacco abuse who is transferred from [facility] for evaluation of acute cholecystitis. patient was admitted on 08/07 and my first encounter with the patient was on 08/14 Assessment/Plan: persistent leukocytosis: developed leukocytosis on 08/10- will repeat CBC was treated with zosyn until 625 has small ascites - on ceftriaxone now for SBP prophylaxis bcx NGTD Cdif negative lipase negative CRP pending ESR 14 peripheral smear pending UA dirty sample- cx pending urine antigens negative Abd US reported trace ascites- IR consulted for paracentesis however not enough fluid ID and hematology on board Alcohol abuse/ possible alcoholic cirrhosis and alcoholoic hepatitis MELD score: 27 (bilirubin elevated secondary to choledocolithiaisis also) Maddrey score:65.1 ( bilirubin elevated secondary to choledocolithiaisis also) will closely monitor for alcohol withdrawals CIWA scores have remained 0 thus far Lorazepam as needed per CIWA scores Folate, Thiamine supplementation concern for DTs, will closely monitor transaminitis trending down AFP 2 and MRI abdomen without lesion needs to have AFP and RUQ Q6M, needs to have EGD and colonoscopy. GI follow up requested ( was not on steroids) - as per Gi recs steroids were initiated- changed prednisone to solumedrol and prednisolone on discharge ( 28 day course and taper over 16 days ( taper 10 mg per day every 4 days until dose of 10 mg is reached and then 5 mg for 3 days) hepatitis profile: nonreactive continue to closely monitor INR > 2 , hold off any anticoagulation at this time will discuss with GI in regards to BB, lasix and aldactone along with nephrology hyponatremia secondary to SIADH: Urine osm elevated and serum osmolality low and urine sodium high all consistent with SIADH Fluid restriction at 1 liter advised Salt tabs 1gram tid TSH 9, free T4 1.07 cortisol 17.8 rest of the management as per nephrology Goal Na correction is 6-8meq in 24 hours. s/p tolvaptan on 08/16- with improvement of his sodium level will defer management to nephrology will discuss diuretics with nephrology Acute choledocholithiasis/acute cholecystitis secondary to biliary sludge MRCP reviewed GI evaluation appreciated Surgery evaluation appreciated s/p laproscopic cholecystectomy on 08/08/18 was treated on zosyn ( surgery had recommended augmentin for 7 days post op - last day would have been on 08/15/18) - zosyn discontinued pt has been advanced to regular diet by surgery leukocytosis persists no signs of abscess on RUQ US ID on board Electrolyte abnormality Hypokalemia: K supplemented Hypophosphatemia: Phos supplemented Hypomagnesemia: Mg supplemented hypocalcemia: replaced continue to monitor electrolytes and replace as needed vitamin D deficiency started on vitamin D supplementation. Elevated ferritin level (?secondary to acute infection rule out hemochromatosis) hematology evaluation appreciated hemochromatosis labs in process continue workup as per hematology elevated TSH, normal free T4. can be due to acute illness. for PCP to follow TFTS in 4 weeks and consider starting synthroid as per their discretion. HTN BP within acceptable range- border line hypotensive ( amlodipine discontinued- lisinopril decreased to 5 mg daily) closely monitor BP hold antihypertensive meds for SBP<100 Tobacco abuse smoking cessation counseling provided patient does not want to quit refused nicotine supplementation therapy at this time coagulopathy: most likely secondary to liver disease and poor nutrition from alcohol use will give one dose of PO vitamin K type and screen on file DVT ppx: scds. code status: Full code Care plan discussed with patient/RN fall aspiration seizure precaution - Time Spent with Patient Total time spent is greater than 50% in coordination of care (as documented) at patient's floor/unit and/or counseling patient: 25 - 35 minutes Internal Medicine: Result - Labs CBC & Chem 7: 08/16/18 05:49 08/16/18 05:49 Labs: Short CBC 08/16/18 Range/Units 05:49 WBC 15.7 H (4.3-11.1) K/mcL Hgb 11.5 L (12.9-16.9) g/dL Hct 32.1 L (37.5-50.1) % Plt Count 199 (140-400) K/mcL Neutrophils # 13.1 H (1.6-8.9) K/mcL BMP 08/16/18 05:49 Sodium 132 L Potassium 4.3 Chloride 101 Carbon Dioxide 23 BUN 8 Creatinine 0.57 L Glucose 126 H Calcium 7.9 L Liver Function 08/16/18 Range/Units 05:49 Total Bilirubin 5.5 H (0.3-1.0) mg/dL AST 108 H (13-39) Units/L ALT 63 H (7-52) Units/L Alkaline Phosphatase 144 H (34-104) Units/L Albumin 2.2 L (3.5-5.7) g/dL Urine 08/15/18 Range/Units 12:00 Urine Color Dark Yellow (Yellow) Urine Clarity Cloudy A (Clear) Urine pH 5.5 (5.0-8.0) pH Units Ur Specific [place] > 1.030 H (1.010-1.025) Urine Protein Negative (Neg-Trace) mg/dL Urine Glucose (UA) Normal (Normal) mg/dL - ABG Interpretation ABG results: PT/INR, D-dimer PT 28.6 Seconds (9.4-12.1) H 08/15/18 02:15 - Impressions Impressions Chest X-Ray 08/15/18 10:24 IMPRESSION: Low lung volumes with patchy bibasilar opacities which could indicate volume loss or pneumonia. Upright PA and lateral chest radiographs would be helpful for further evaluation. D/ / Sj Shahid MD / Sj hSahid MD Interpreting Provider: Sj Shahid MD Consult Discharge Plan - Plan Instructions: Laparoscopic Cholecystectomy (DC) Additional Instructions: General Surgical Discharge Instructions 1. No pushing, pulling, or lifting greater than 15 lbs for 2-4 weeks (depending upon procedure). 2. You may shower beginning today, but no tub baths, soaking, or swimming for 2 weeks. 3. You may resume driving when you are off narcotics and are safe to react in a car. 4. Take ibuprofen every 8 hours for discomfort. If this does not relieve discomfort, you may take the as needed Percocet. Take narcotics as directed. Do not take more narcotics then directed and do not share your narcotics with any other person. Do not drink alcohol while on narcotics. 5. Take stool softeners (Colace) or a water based laxative (Miralax) while taking narcotics. You may hold for loose stools. 6. Report any fevers greater than 100.5F, increase abdominal discomfort, drainage that looks like pus, increased redness or pain at the surgical site, or any vomiting. 7. Report any pain in the calves, shortness of breath, or rapid heartbeat. 8. Follow-up in the office as directed. 9. If you were prescribed antibiotics, do not stop them without talking to your provider. [facility]errals: [facility] [Primary Care Provider[facility] - Prescriptions: Docusate [Colace] 100 mg PO DAILY #30 capsule ___ (1) Leukocytosis Qualifiers: Leukocytosis type: unspecified Qualified Code(s): D72.829 - Elevated white blood cell count, unspecified (11) Cirrhosis Qualifiers: Hepatic cirrhosis type: alcoholic cirrhosis Ascites presence: with ascites Qualified Code(s): K70.31 - Alcoholic cirrhosis of liver with ascites
--- NOTE | 2018-08-16 14:41 | Gastroenterology Progress Note ---
Date of Encounter: 08/16/18 Time of Encounter: 09:45 - Assessment and plan (1) Cirrhosis Current Visit: Yes Status: Acute Assessment and plan: MELD NA 27 DF has increased to 81.4. Pt was started on predisone yesterday was changed to IV solu-medrol today per hospitalist team. Discussed with Dr Jo and pt may need transfer to [facility] if he does not respond to steroids. Dr Jo did not recommend diuretics or betablocker at this time due to continued hypotension. Follow up after discharge with GI. Lifestyle Changes: 1. Total abstinence from alcohol including social drinking. 2. No smoking. 3. Gradual loss of weight. 4. Drink at least 3 cups of coffee due to its antioxidant effects in the liver, it reduces risk of HCC and advance fibrosis. 5. If needed, use less than 2 g/day of Tylenol (in divided doses). 6. Vaccination for Hep A, B, Pneumococcus if not already received and yearly influenza vaccination by PCP. 7. Avoid NSAIDS as can cause kidney damage. 8. Avoid benzodiazepines and other sedatives such as anti-histamines, narcotics etc. as can cause encephalopathy or confusion. 9. Take a late carbohydrate meal supplement as it reduces glucose production from protein breakdown and thus improves nutrition. 10. In cirrhosis, statins are safe to use and also improve portal hypertension and decrease risk of HCC. 11. Screening: Hepatocellular cancer screening: US of liver and AFP every 6 months Qualifiers: Hepatic cirrhosis type: alcoholic cirrhosis Ascites presence: with ascites Qualified Code(s): K70.31 - Alcoholic cirrhosis of liver with ascites (2) Common bile duct (CBD) obstruction Current Visit: Yes Status: Acute Assessment and plan: Pt is status post lap sharon. ERCP was not indicated. LFTs continued to increase but repeat US did not show any further CBD dilation MRCP shows: 1. The gallbladder appears hydropic without definite gallbladder wall thickening. Probable gallbladder sludge or sand demonstrated. Evaluation for tumor is limited without administration of IV contrast, but no discrete gallbladder mass lesion is evident. 2. Hepatic steatosis and morphologic features of hepatic cirrhosis. 3. Suboptimally evaluated because of the presence of abdominal ascites, the CBD and PD appear grossly unremarkable. 4. There appears to be omental caking in the left upper quadrant. Correlation with IV contrast-enhanced CT abdomen and pelvis recommended as this can be seen with metastatic disease, but can also be reactive in hepatic cirrhosis. - Time Spent With Patient Total time spent is greater than 50% in coordination of care (as documented) at patient's floor/unit and/or counseling patient: - Subjective Interval history: Mr Whitley is awake and sitting up in bed. He denies any abdominal pain, nausea, vomiting, chest pain or shortness of breath at this time. - Constitutional Vitals: Temp Pulse Resp BP Pulse Ox 97.7 F 105 18 107/70 97 08/16/18 06:55 08/16/18 06:55 08/16/18 06:55 08/16/18 06:55 08/16/18 05:32 General appearance: Present: cooperative, A&O X 3, no acute distress, answers questions appropriately Exam: CONSTITUTIONAL:alert, no acute distress.HEAD:normocephalic.EYES:jaundice. NECK:no obvious swelling.HEART:regular rate and rhythm, no murmurs.LUNGS:bilateral poor air entry.ABDOMEN:distended, ascites noted, pitting edema noted to right side of abdomen and right hip.RECTAL EXAM:Deferred.EXTREMITIES:no clubbing, cyanosis, 2+ BLE edema.SKIN:jaundice notedNEUROLOGIC:no obvious focal defect. Results - Labs CBC & Chem 7: 08/16/18 05:49 08/16/18 05:49 Labs: Last Result 08/16/18 08/16/18 05:49 05:49 ESR 14 H Calcium 7.9 L Entire Visit 08/16/18 08/16/18 05:49 05:49 Hgb 11.5 L Hct 32.1 L Total Bilirubin 5.5 H AST 108 H ALT 63 H Amylase 38 Lipase 30 - ABG ABG results: PT/INR, D-dimer PT 28.6 Seconds (9.4-12.1) H 08/15/18 02:15 Consult Discharge Plan - Plan Instructions: Laparoscopic Cholecystectomy (DC) Additional Instructions: General Surgical Discharge Instructions 1. No pushing, pulling, or lifting greater than 15 lbs for 2-4 weeks (depending upon procedure). 2. You may shower beginning today, but no tub baths, soaking, or swimming for 2 weeks. 3. You may resume driving when you are off narcotics and are safe to react in a car. 4. Take ibuprofen every 8 hours for discomfort. If this does not relieve discomfort, you may take the as needed Percocet. Take narcotics as directed. Do not take more narcotics then directed and do not share your narcotics with any other person. Do not drink alcohol while on narcotics. 5. Take stool softeners (Colace) or a water based laxative (Miralax) while taking narcotics. You may hold for loose stools. 6. Report any fevers greater than 100.5F, increase abdominal discomfort, drainage that looks like pus, increased redness or pain at the surgical site, or any vomiting. 7. Report any pain in the calves, shortness of breath, or rapid heartbeat. 8. Follow-up in the office as directed. 9. If you were prescribed antibiotics, do not stop them without talking to your provider. [facility]errals: [facility] [Primary Care Provider] - Prescriptions: Docusate [Colace] 100 mg PO DAILY #30 capsule
--- NOTE | 2018-08-16 18:28 | Discharge Summary ---
- NOTES TO OUTPATIENT PROVIDER Notes to Outpatient Provider: as per VIOLET Orders not resulted at time of discharge: Pending orders 08/14/18 12:44 Albumin,Body Fluid Routine Amylase,Peritoneal Fluid [BF] Stat Cell Cnt w Dif, Peritoneal Fl [BF] Stat Glucose,Peritoneal Fluid [BF] Stat LDH,Peritoneal Fluid [BF] Stat Total Protein,Peritoneal Fluid [BF] Stat 08/15/18 11:05 Culture,Blood [BC] Stat 08/15/18 12:00 Culture,Urine [RM] Stat 08/16/18 05:49 Amylase Routine Bilirubin,Direct Routine CMP [Comprehensive Metabolic Panel] AM 0400 Lipase Routine Magnesium AM 0400 Phosphorous AM 0400 Date of Encounter: 08/16/18 Time of Encounter: 18:24 - Discharge Diagnosis (1) Alcoholic hepatitis Priority: Primary Status: Acute Qualifiers: Ascites presence: with ascites Qualified Code(s): K70.11 - Alcoholic hepatitis with ascites (2) Leukocytosis Priority: Secondary Status: Acute Qualifiers: Leukocytosis type: unspecified Qualified Code(s): D72.829 - Elevated white blood cell count, unspecified (3) Hepatic steatosis Priority: Secondary Status: Acute (4) HTN (hypertension) Priority: Secondary Status: Chronic Qualifiers: Hypertension type: essential hypertension Qualified Code(s): I10 - Essential (primary) hypertension (5) Tobacco abuse Priority: Secondary Status: Acute (6) Elevated TSH Priority: Secondary Status: Acute (7) Alcohol use disorder Priority: Secondary Status: Acute (8) Hypokalemia Priority: Secondary Status: Acute (9) Hypophosphatemia Priority: Secondary Status: Acute (10) Hypomagnesemia Priority: Secondary Status: Acute (11) Acute cholecystitis due to biliary calculus Priority: Secondary Status: Acute (12) Cirrhosis Priority: Secondary Status: Acute Qualifiers: Hepatic cirrhosis type: alcoholic cirrhosis Ascites presence: with ascites Qualified Code(s): K70.31 - Alcoholic cirrhosis of liver with ascites (13) Common bile duct (CBD) obstruction Priority: Secondary Status: Acute (14) Elevated ferritin Priority: Secondary Status: Acute (15) Hyponatremia Priority: Secondary Status: Acute Hospital course: "Mr. Whitley is a 63 year old male with PMH of alcohol abuse, cirrhosis of the liver, hypertension, tobacco abuse who is transferred from [facility] for evaluation of acute cholecystitis. Patient is seen and examined with family present at bedside. Patient states he checked himself into [facility] last week for alcohol detox, states he has been having dulling right upper quadrant abdominal pain for the last month, but he has continued to drink. He reports of being at the [facility] for the last few days, and his last alcohol drink was yesterday. Prior to his admission to the [facility] he has been drinking 6-7 drinks of 6oz vodka daily for the last twenty years. He also reports of smoking a ppd. [facility] workup reported CT abd/pelvis: 1. Diffuse Increased hepatic echogenicity with a mildly nodular hepatic contour. 2. Large amount of dependent medium level echogenicity in the gallbladder likely representing tumefactive sludge. Gallbladder neoplasm cannot be excluded based on this appearance. 3. There is dilation of the common bile duct up to 9mm. This could be due to a distal stone, stricture or tumor. ERCP or MRCP is recommended 4. Moderate perihepatic ascites Patient is currently resting in bed, reports of mild RUQ abd discomfort but denies any nausea, vomiting, fever, or chills. " Patient presented with above presentation and had above ED course. patient was admitted on 08/07 and my first encounter with the patient was on 08/14 He has been treated for the following medical problems while hospitalized persistent leukocytosis: was treated with zosyn until 08/15 has small ascites - on ceftriaxone now for SBP prophylaxis bcx NGTD Cdif negative lipase negative CRP pending ESR 14 peripheral smear pending UA dirty sample- cx pending urine antigens negative Abd US reported trace ascites- IR consulted for paracentesis however not enough fluid for tap ID and hematology on board Alcohol abuse/ possible alcoholic cirrhosis and alcoholoic hepatitis MELD score: 27 (bilirubin elevated secondary to choledocolithiaisis also) Maddrey score:65.1 ( bilirubin elevated secondary to choledocolithiaisis also) has increased to 81.4. CIWA scores have remained 0 thus far Lorazepam as needed per CIWA scores Folate, Thiamine supplementation AFP 2 and MRI abdomen without lesion GI follow up requested ( was not on steroids) - as per Gi recs steroids were initiated- changed prednisone to solumedrol IV while inpatient and prednisolone on discharge hepatitis profile: nonreactive continue to closely monitor INR > 2 , hold off any anticoagulation at this time discussed case with nephrology who approve starting him on lasix, GI would like to hold off until BP stabilizes. GI recommended to transfer to tertiary center needs to have AFP and RUQ Q6M, needs to have EGD and colonoscopy. hyponatremia secondary to SIADH: Urine osm elevated and serum osmolality low and urine sodium high all consistent with SIADH s/p tolvaptan on 08/16- with improvement of his sodium level 132 Fluid restriction at 1 liter advised Salt tabs 1gram tid TSH 9, free T4 1.07 cortisol 17.8 rest of the management as per nephrology Goal Na correction is 6-8meq in 24 hours. will defer management to nephrology Acute choledocholithiasis/acute cholecystitis secondary to biliary sludge MRCP reviewed GI evaluation appreciated Surgery evaluation appreciated s/p laproscopic cholecystectomy on 08/08/18 was treated on zosyn ( surgery had recommended augmentin for 7 days post op - last day would have been on 08/15/18) - zosyn discontinued ( on ceftriaxone as above) pt has been advanced to regular diet by surgery leukocytosis persists no signs of abscess on RUQ US ID on board Electrolyte abnormality Hypokalemia: K supplemented Hypophosphatemia: Phos supplemented Hypomagnesemia: Mg supplemented hypocalcemia: replaced continue to monitor electrolytes and replace as needed vitamin D deficiency- 8 started on vitamin D supplementation. 50,000 units Qweekly for 6 weeks and have levels repeated Elevated ferritin level (?secondary to acute infection rule out hemochromatosis) ferritin 1391 hematology evaluation appreciated as per hematology "Although he has a negative hereditary hemochromatosis panel, outpatient phlebotomy would be beneficial." continue workup as per hematology elevated TSH 9 , normal free T4 1.07. can be due to acute illness. for PCP to follow TFTS in 4 weeks and consider starting synthroid as per their discretion. HTN BP within acceptable range- border line hypotensive ( amlodipine discontinued- lisinopril decreased to 5 mg daily) closely monitor BP hold antihypertensive meds for SBP<100 Tobacco abuse smoking cessation counseling provided patient does not want to quit refused nicotine supplementation therapy at this time coagulopathy: most likely secondary to liver disease and poor nutrition from alcohol use s/p one dose of PO vitamin K type and screen on file DVT ppx: scds. code status: Full code GI recommended to transfer to tertiary center as his DF has increased. i discussed with patient and he would like to be transferred to [facility]. he understands the risks and benefits of transfer including and he agrees for transfer. [facility] called and Dr. Yang accepted the patient. nursing staff aware to send all imaging and labs. Discharge discussed with: patient, nurse, social work, case management, marketing database consultant - Time Spent with Patient Total time spent providing and/or coordinating discharge services: Time spent: Greater than 30 minutes (45) - Discharge Medications Prescriptions: New Docusate [Colace] 100 mg PO DAILY #30 capsule Lisinopril [Zestril] 5 mg PO DAILY tablet Phos-NaK [Neutra-Phos] 1 each PO DAILY powd.pack Sodium Chloride [Sodium Chloride Tab] 1 gm PO TIDAC tablet Magnesium Oxide [Mag-Ox] 400 mg PO BID tablet methylPREDNISolone [Solu-MEDROL] 40 mg IVP DAILY vial Ergocalciferol (VITAMIN D2) [Drisdol (50,000 Unit)] 50,000 unit PO QWEEK capsule Ceftriaxone Sodium [Ceftriaxone] 2 gm IV DAILY #1 vial.port Continued Thiamine (B-1) [Vitamin B-1] 100 mg PO DAILY Folic Acid 1 mg PO DAILY Fluticasone Propionate Nasal [Flonase] 50 mcg NS DAILY PRN PRN Reason: Allergy Symptoms Discontinued Amlodipine Besylate/Benazepril [Lotrel 10-20 mg Capsule] 1 each PO DAILY Home Medications: Fluticasone Propionate Nasal [Flonase] 50 mcg NS DAILY PRN 08/07/18 [History] Folic Acid 1 mg PO DAILY 08/07/18 [History] Thiamine (B-1) [Vitamin B-1] 100 mg PO DAILY 08/07/18 [History] Docusate [Colace] 100 mg PO DAILY #30 capsule 08/09/18 [Rx] Ceftriaxone Sodium [Ceftriaxone] 2 gm IV DAILY #1 vial.port 08/16/18 [Rx] Ergocalciferol (VITAMIN D2) [Drisdol (50,000 Unit)] 50,000 unit PO QWEEK capsule 08/16/18 [Rx] Lisinopril [Zestril] 5 mg PO DAILY tablet 08/16/18 [Rx] Magnesium Oxide [Mag-Ox] 400 mg PO BID tablet 08/16/18 [Rx] Phos-NaK [Neutra-Phos] 1 each PO DAILY powd.pack 08/16/18 [Rx] Sodium Chloride [Sodium Chloride Tab] 1 gm PO TIDAC tablet 08/16/18 [Rx] methylPREDNISolone [Solu-MEDROL] 40 mg IVP DAILY vial 08/16/18 [Rx] Allergies/Adverse Reactions: Allergy/AdvReac Type Severity Reaction Status Date / Time No Known Allergies Allergy Verified 08/07/18 14:59 Date of admission: 08/07/18 17:06 [facility] care physician: [facility] Consults: 08/07/18 15:04 Consult to Gastroenterology [CONS] Stat Consulting Provider: Gastroenterology Sheree Reason for Consult: CBD obstruction Time Notified: 15:04 Call Completed: Yes 08/07/18 16:03 Consult to Wool Washer [CONS] Routine Reason for SW Consult: alcohol abuse 08/07/18 18:12 Consult to Wool Washer [CONS] Routine Reason for SW Consult: [facility] poss placement 08/08/18 13:00 Consult to Surgery [CONS] Routine Consulting Provider: Surgery Sheree Surgical Reason for Consult: acute cholecystitis Call Completed: Yes 08/09/18 08:12 Consult to Oncology Hematology [CONS] Routine Consulting Provider: Lavinia De La Cruz Reason for Consult: elevated ferritin Call Completed: Yes 08/13/18 07:55 Consult to Nephrology [CONS] Routine Consulting Provider: Kidney Sheree/MAGNO/ACACIA/PUJA Reason for Consult: hyponatremia Call Completed: Yes 08/14/18 09:06 Consult to Gastroenterology [CONS] Routine Consulting Provider: Kayla Bentley Reason for Consult: cirrhosis Call Completed: No 08/14/18 14:00 Consult to Physical Therapy [CONS] Routine Comment: Evaluate, develop and implement POC Reason for Consult: dispostion Does patient have active BEDREST order?: No Is patient medically & hemodynamically stable?: Yes Patient assessed for mobility or mobilized this visit?: Yes OT [Consult to Occupational Therapy] [CONS] Routine Comment: Evaluate, develop and implement POC Reason for Consult: disposition Does patient have active BEDREST order?: No Is patient medically & hemodynamically stable?: Yes Patient assessed for mobility or mobilized this visit?: Yes 08/15/18 10:23 Consult to Infectious Diseases [CONS] Routine Consulting Provider: Infectious Disease [place] Reason for Consult: persistant leukocytosis - s/p cholecystectomy for acute cholangitis, no bcx were sent on admission - was on zosyn changed to ceftriaxone for SBP prophylaxis Call Completed: No - Constitutional Vitals: Temp Pulse Resp BP Pulse Ox 97.4 F L 103 18 115/67 97 08/16/18 15:56 08/16/18 15:56 08/16/18 15:56 08/16/18 15:56 08/16/18 15:56 Exam: General: No acute distress, AAO x 3 HEENT: EOMI, NC/AT, + scleral icterus, jaundiced Respiratory: Clear to auscultate bilaterally, no wheezing, no rales Cardiovascular: Regular, Rate, Rhythm, No murmurs GI: Soft, Non tender, could not appreciate rebound, distended abd, normal bowel sounds, no guarding, no rebound tenderness, well healed lap procedure scars has seroues fluid draining from the epigastric incision from his Lap sharon Ext: No edema, no tenderness, positive pulses Neuro: AAO x 3, no focal deficits, no tremor on outstretched hand Rest of the clinical exam is noncontributory - Patient Status Disposition: Transfer Critical Access Hosp Condition: Undetermined Functional capacity at discharge: independent ambulation Overall status at discharge: other - Discharge Instructions Instructions: Laparoscopic Cholecystectomy (DC) [facility] With: [facility] [Primary Care Provider] - Forms: ED Satisfaction Letter, Work/School Release Additional Instructions: General Surgical Discharge Instructions 1. No pushing, pulling, or lifting greater than 15 lbs for 2-4 weeks (depending upon procedure). 2. You may shower beginning today, but no tub baths, soaking, or swimming for 2 weeks. 3. You may resume driving when you are off narcotics and are safe to react in a car. 4. Take ibuprofen every 8 hours for discomfort. If this does not relieve discomfort, you may take the as needed Percocet. Take narcotics as directed. Do not take more narcotics then directed and do not share your narcotics with any other person. Do not drink alcohol while on narcotics. 5. Take stool softeners (Colace) or a water based laxative (Miralax) while taking narcotics. You may hold for loose stools. 6. Report any fevers greater than 100.5F, increase abdominal discomfort, drainage that looks like pus, increased redness or pain at the surgical site, or any vomiting. 7. Report any pain in the calves, shortness of breath, or rapid heartbeat. 8. Follow-up in the office as directed. 9. If you were prescribed antibiotics, do not stop them without talking to your provider. - Diet and Activity Activity: as per physical therapy Diet: regular diet
[2018-08-16 21:49] VITALS: BP 121/71
--- NOTE | 2018-08-16 23:48 | Nephrology Progress Note ---
Date of Encounter: 08/16/18 Time of Encounter: 17:00 - Assessment and Plan (1) Hyponatremia Current Visit: Yes Status: Acute Sodium improved at 132, after tolvaptan yesterday Continue fluid restriction Urine osm elevated and serum osmolality low and urine sodium high all consistent with SIADH Uric acid low, TSH elevated and cortisol elevated Continue salt tabs 1gram tid Continue resume lasix as needed (2) Cirrhosis Current Visit: Yes Status: Acute per primary Qualifiers: Hepatic cirrhosis type: alcoholic cirrhosis Ascites presence: with ascites Qualified Code(s): K70.31 - Alcoholic cirrhosis of liver with ascites (3) Alcoholic hepatitis Current Visit: Yes Status: Acute Per primary and GI with possible transfer to tertiary institution planned Qualifiers: Ascites presence: with ascites Qualified Code(s): K70.11 - Alcoholic hepatitis with ascites (4) Acute cholecystitis due to biliary calculus Current Visit: Yes Status: Acute s/p lap sharon, healing well Subjective Interval history: Pt seen and examined with no new complaints. s/p tolvaptan dose yesterday Objective - Vital Signs Vital signs: Vital Signs Temp Pulse Resp BP Pulse Ox 08/16/18 21:47 98.4 F 97 14 121/71 100 08/16/18 15:56 97.4 F L 103 18 115/67 97 08/16/18 06:55 97.7 F 105 18 107/70 08/16/18 05:32 98 F 98 14 114/73 97 08/16/18 01:20 98.1 F 97 14 111/72 92 Intake and Output 08/16/18 08/16/18 08/16/18 07:59 15:59 23:59 Intake Total 60 / 1020 360 / 1020 600 / 1020 Output Total 800 / 800 Balance -740 / 220 360 / 220 600 / 220 Intake: Oral 60 / 1020 360 / 1020 600 / 1020 Output: Urine 800 / 800 Other: Meal Nourishment/Supplement Dinner Stool Size Small Large Stool Consistency formed liquid Stool Color Brown Brown # Voids 1 1 # Bowel Movements 1 1 Weight 91.4 kg Patient Weight 08/16/18 23:59 Weight 91.4 kg - General Appearance General appearance: Present: chronically ill (NAD) EENT: Present: ATNC, mucous membranes moist, scleral icterus Neck: Present: no JVD, supple Additional Comments: good areation ant bilat Cardiology: Present: edema (LE bilat), normal S1, normal S2 Gastrointestinal: Present: tenderness (mild with small surgical wounds), no guarding, distended Integumentary: Present: warm and dry Neurologic: Present: no focal deficit Musculoskeletal: Present: no deformities Psychiatric: Present: mood/affect appropriate - Lab 08/16/18 05:49 08/16/18 05:49 Consult Discharge Plan - Plan Instructions: Laparoscopic Cholecystectomy (DC), Chronic Hypertension (DC) Additional Instructions: General Surgical Discharge Instructions 1. No pushing, pulling, or lifting greater than 15 lbs for 2-4 weeks (depending upon procedure). 2. You may shower beginning today, but no tub baths, soaking, or swimming for 2 weeks. 3. You may resume driving when you are off narcotics and are safe to react in a car. 4. Take ibuprofen every 8 hours for discomfort. If this does not relieve discomfort, you may take the as needed Percocet. Take narcotics as directed. Do not take more narcotics then directed and do not share your narcotics with any other person. Do not drink alcohol while on narcotics. 5. Take stool softeners (Colace) or a water based laxative (Miralax) while taking narcotics. You may hold for loose stools. 6. Report any fevers greater than 100.5F, increase abdominal discomfort, drainage that looks like pus, increased redness or pain at the surgical site, or any vomiting. 7. Report any pain in the calves, shortness of breath, or rapid heartbeat. 8. Follow-up in the office as directed. 9. If you were prescribed antibiotics, do not stop them without talking to your provider. Referrals: [facility] [Primary Care Provider] - Prescriptions: Ceftriaxone Sodium [Ceftriaxone] 2 gm IV DAILY #1 vial.port Docusate [Colace] 100 mg PO DAILY #30 capsule
[2018-08-17] MEDS ORDERED: Spironolactone 25 MG TABLET PO SCH (09:00)
[2018-08-17] MEDS ORDERED: Furosemide 20 MG TABLET PO SCH (09:00)
== END 2018-08-16 22:30 | disposition critical access hospital (66) | DRG 418 ==
LOC: 3BNU 14:39 → EMEROOARM 14:39 → 3BNU 16:00 → SUATTDRO 17:06 → 2NENU 08-13 10:12
PROVIDERS: ADMIT Internal Medicine Nephrology; ATTEND Internal Medicine